=== PATIENT | female | born 1935 | race Caucasian/White ===

== ENCOUNTER → 2018-12-18 | Outpatient (CLI) | payer MEDICARE ==
[2018-12-18 18:00] LABS: CALCIUM LEVEL 8.5 MG/DL (8.8-10.2); CREATININE FOR GFR 1.1 MG/DL (0.55-1.30); GLOMERULAR FILTRATION RATE 50.7 (>32); POTASSIUM SERUM 4.5 MEQ/L (3.5-5.1)
== END ==
LOC: M SMT 14:54
PROVIDERS: ATTEND Nurse Practitioner Family
DX: N13.30 Unspecified hydronephrosis (principal)

== ENCOUNTER 2018-12-23 05:46 | Inpatient (IN) | payer MEDICARE ==
[~2018-12-23] VITALS: Ht 152.4 cm; Wt 68.2 kg
[2018-12-23] VITALS (31 sets, daily range): BP systolic 79–142; BP diastolic 38–94
[2018-12-23] MEDS ORDERED: CHLORHEXIDINE GLUCONATE 0.12 % 15ML UDC (PERIDEX ORAL RINSE) MT SCH (09:00)
[2018-12-23] MEDS ORDERED: NS 1,000 ML IV SCH (12:19)
[2018-12-23] MEDS ORDERED: NS 1,000 ML IV ONE ×2 (12:30→17:45)
[2018-12-23] MEDS ORDERED: SYNT100T PO (12:35)
[2018-12-23] MEDS ORDERED: METF750T PO (12:35)
[2018-12-23] MEDS ORDERED: VANCOMYCIN HCL 500 MG in D5W MINI-BAG PLUS 100 ML IV SCH (12:45)
[2018-12-23] MEDS ORDERED: NS IV SCH (12:45)
[2018-12-23] MEDS ORDERED: IMIPENEM IV SCH (12:45)
[2018-12-23] MEDS ORDERED: CILASTATIN IV SCH (12:45)
[2018-12-23] MEDS: ACETAMINOPHEN TAB 650MG DOSE (2X325MG) PO PRN (12:50)
[2018-12-23] MEDS ORDERED: ATOR1TAB21 PO (12:55)
[2018-12-23] MEDS ORDERED: TIOT18INH INH (12:55)
[2018-12-23] MEDS ORDERED: PARO10TA3 PO (12:55)
[2018-12-23] MEDS ORDERED: GLIP10TA18 PO (12:55)
[2018-12-23] MEDS ORDERED: BREO1INH INH (12:55)
[2018-12-23] MEDS ORDERED: PROAAER10 INH (12:55)
[2018-12-23] MEDS ORDERED: AMLO5TAB6 PO (12:55)
[2018-12-23] MEDS ORDERED: ASPI81TA85 PO (12:55)
[2018-12-23] MEDS ORDERED: DIPH25CA PO (12:55)
[2018-12-23] MEDS ORDERED: OXYC10TA12 PO (12:55)
[2018-12-23] MEDS ORDERED: PANT20TA2 PO (12:55)
[2018-12-23] MEDS ORDERED: FURO40TA2 PO (12:55)
[2018-12-23] MEDS ORDERED: METO1TAB32 PO (12:55)
[2018-12-23] MEDS ORDERED: TRAD5TAB PO (12:55)
[2018-12-23] MEDS ORDERED: MAG-400T7 PO (12:55)
[2018-12-23] MEDS ORDERED: LISI-538 PO (12:55)
[2018-12-23] MEDS ORDERED: POTA1TAB14 PO (12:59)
[2018-12-23] MEDS ORDERED: NON-325T5 PO (13:06)
[2018-12-23] MEDS ORDERED: GLUCAGON FOR INJ 1 MG VIAL (J1610) SC PRN (13:30)
[2018-12-23] MEDS ORDERED: DEXTROSE 50% 50 ML SYRINGE IV PRN (13:30)
[2018-12-23] MEDS ORDERED: GLUCOSE 4 GM CHEW TABLET PO PRN (13:30)
[2018-12-23 13:32] LABS: ABG BASE EXCESS -7.9 (-2.0-2.0); ABG HCO3 17.5 MEQ/L (22.0-26.0); ABG O2 SATURATION 97.5 % (95.0-99.0); ABG PARTIAL PRESSURE CO2 35.3 mmHg (35.0-45.0); ABG PARTIAL PRESSURE O2 94.7 mmHg (75.0-100.0); ABG TOTAL CO2 18.6 MEQ/L (23.0-31.0); ABG pH (ARTERIAL) 7.313 UNITS (7.350-7.450)
[2018-12-23 13:55] LABS: BASO % 0.2 % (0.0-1.0); HEMATOCRIT 28.2 % (36.0-47.0); HEMOGLOBIN 8.8 g/dl (12.0-15.5); LYMPH # 1.1 10^3/uL (1.5-4.5); LYMPH % 6.1 % (24.0-44.0); MEAN CORPUSCULAR HEMOGLOBIN 27.9 pg (27.0-33.0); MEAN CORPUSCULAR HGB CONC 31.2 g/dl (32.0-36.5); MEAN CORPUSCULAR VOLUME 89.5 fl (80.0-96.0); MONO # 1.8 10^3/uL (0.0-0.8); NEUTROPHILS # 14.7 10^3/uL (1.8-7.7); NEUTROPHILS % 82.8 % (36.0-66.0); PLATELET COUNT, AUTOMATED 205 10^3/uL (150-450); RED BLOOD COUNT 3.15 10^6/uL (4.00-5.40); WHITE BLOOD COUNT 17.7 10^3/uL (4.0-10.0)
[2018-12-23 13:58] LABS: ALBUMIN 2.3 GM/DL (3.2-5.2); BILIRUBIN,TOTAL 0.3 MG/DL (0.2-1.0); CALCIUM LEVEL 7.6 MG/DL (8.8-10.2); CREATININE FOR GFR 3.83 MG/DL (0.55-1.30); MAGNESIUM LEVEL 1.7 MG/DL (1.8-2.4); POTASSIUM SERUM 4.9 MEQ/L (3.5-5.1); THYROID STIMULATING HORMONE 0.47 uIU/ML (0.358-3.740); TOTAL PROTEIN 5.5 GM/DL (6.4-8.2); VANCOMYCIN LEVEL PEAK 13.3 UG/ML (18.0-40.0)
[2018-12-23 14:07] LABS: INR 1.28; PROTHROMBIN TIME 16.2 SECONDS (12.1-14.4)
--- NOTE | 2018-12-23 14:58 | PHACANCOPD ---
PHARMACY VANCOMYCIN DOSING Pt Demographics Demographics Patient Age:83 , Weight:67.000 , Gender: female Adjusted Body Weight Date: 12/23/18, Adjusted Body Weight: Kg Events Past 24 Hours Events Past 24 Hours: YES: Change in CrCl, Fever, Elevation in WBC Vancomycin Vancomycin indication: SEPSIS Vancomycin Load Y/N: Yes Load Dose Date Time Vancomycin Load Dose: 1000MG Date: 12/23 Time: 430AM AT [facility] Vancomycin Dose Date: 12/23/18. Current Vancomycin Dose: [750MG Q24H@21] Intermittent Dosing?: No Labs Labs Vital Signs Label Value Date Time Patient Temperature 104.3 degrees F 12/23/18 1130 Temperature Source Tympanic 12/23/18 1130 Patient Temperature 102.0 degrees F 12/23/18 1330 Temperature Source Temporal 12/23/18 1330 Respiratory Rate 20 bpm 12/23/18 1300 Blood Pressure Assessment 112/56 (74) 12/23/18 1330 Item Value Date Time White Blood Count 17.7 10^3/uL H 12/23/18 1342 Lactic Acid Level 2.2 MMOL/L *H 12/23/18 1342 Micro Microbiology 12/23/18 Blood Culture, Received Pending 12/23/18 Blood Culture, Received Pending Creatinine Clearance Date:12/23/18. Creatinine Clearance: . Assessment and Plan Maintaining Current Dose?: Yes Reason for dose change: No Dose Change Pharmacist Note Pharmacist Note Date: 12/23/18. Pharmacist note: Patient was transferred to here from [facility] today septic. She was admitted with a temperature of 104, WBC of 17.2, and a lactic acid level of 2.2. Her SCR was elevated at 3.83 upon admission, and her SCR on 12/18/18 was 1.1. She received 1 gram of Vancomycin at [facility] at 430am. A random level was obtained upon admission here and resulted at 13.3. No imaging or H&P has been done yet. She has blood cultures pending. She will be started on Vancomycin 750mg q24h starting tonight at 2100. We will continue to monitor and make adjustments. LETHA TOM PHARMACY Dec 23, 2018 14:58
[2018-12-23] MEDS: IPRATROPIUM 0.5MG/ALBUTEROL 2.5MG INH SOL UD 3ML (DUONEB)(J7620) NEB SCH ×3 (15:24→23:29)
[2018-12-23] MEDS: MEROPENEM INJ 500 MG in APPROPRIATE DILUENT 1 EA IV SCH (15:40)
--- NOTE | 2018-12-23 15:49 | HPEPDOC ---
General Date of Admission 12/23/2018 Primary Care Physician: A Attending Physician: KARI MARQUEZ MD Chief Complaint The patient is a 83-year-old female admitted with a reason for visit of Sepsis, Marco A, Renal Failure. Source: Patient, RN/MD, EMS notes reviewed, Old records Exam Limitations: No limitations Timing/Duration: Unsure History of Present Illness This is 83 years old white female transferred from [facility] emergency room.. Patient has a past medical history of COPD with pulmonary hypertension, diabetes mellitus, hypertension, hypothyroidism, history of C daily with atrophic left kidney. All of's, so patient had anorexia many episodes. Acute renal failure with a creatinine approximately 0.8, but slowly has been increasing to 3.0. In September 2018. She needed intermittent dialysis and eventually nephrostomy tube was placed in Patient also was admitted to ICU after being intubated, found concurrent pneumonia. She has been on a creatinine baseline of 0.7, till day of admission when she presented to [facility] with chief complaints of feeling weak and poor for the last few days. Patient has a nephrostomy tube and also does intermittent self cath for urinary output but has been slowly decreasing. Patient was transferred to [facility] with possible sepsis, possible nephrostomy tube dysfunction, etc. Home Medications Scheduled Acetaminophen (Acetaminophen) 325 Mg Tablet, 325 MG PO ONCE, (Reported) Amlodipine Besylate (Amlodipine Besylate) 5 Mg Tablet, 5 MG PO DAILY, (Reported) Aspirin (Aspir 81) 81 Mg Tablet.dr, 81 MG PO DAILY, (Reported) Atorvastatin Calcium (Atorvastatin Calcium) 20 Mg Tablet, 20 MG PO DAILY, (Reported) Fluticasone/Vilanterol (Breo Ellipta 100-25 Mcg INH) 1 Each Blst.w.dev, 1 PUFF INH DAILY, (Reported) Furosemide (Furosemide) 40 Mg Tablet, 40 MG PO DAILY, (Reported) Glipizide (Glipizide ER) 10 Mg Tab.er.24, 10 MG PO DAILY, (Reported) Levothyroxine Sodium (Synthroid) 100 Mcg Tablet, 100 MCG PO DAILY, (Reported) Linagliptin (Tradjenta) 5 Mg Tablet, 5 MG PO DAILY, (Reported) Lisinopril (Lisinopril) 20 Mg Tablet, 20 MG PO DAILY, (Reported) Magnesium Oxide (Magnesium Oxide) 400 Mg Tablet, 400 MG PO BID, (Reported) Metformin HCl (Metformin HCl ER) 750 Mg Tab.er.24h, 750 MG PO QPM, (Reported) TAKE WITH EVENING MEAL Metoprolol Succinate (Metoprolol Succinate) 25 Mg Tab.er.24h, 25 MG PO DAILY, (Reported) Pantoprazole Sodium (Pantoprazole Sodium) 20 Mg Tablet.dr, 20 MG PO BID, (Reported) Paroxetine HCl (Paroxetine) 10 Mg Tablet, 10 MG PO DAILY, (Reported) Potassium Chloride (Potassium Chloride) 20 Meq Tablet.er, 40 MEQ PO DAILY, (Reported) Tiotropium [place] Monohydrate (Spiriva) 18 Mcg Cap.w.dev, 1 INHALATION INH DAILY, (Reported) Scheduled PRN Albuterol Sulfate (Proair Hfa) 8.5 Gm Hfa.aer.ad, 2 PUFF INH Q4-6 PRN for DEISY RTNESS OF BREATH, (Reported) Diphenhydramine HCl (Diphenhydramine HCl) 25 Mg Capsule, 25 MG PO Q4H PRN for ALLERGY SYMPTOMS, (Reported) Oxycodone HCl (Oxycodone HCl) 10 Mg Tablet, 10 MG PO Q6H PRN for PAIN, (Reported) Allergies Coded Allergies: Penicillins (Unverified Allergy, Unknown, 12/23/18) budesonide (Unverified Adverse Reaction, Intermediate, 12/23/18) NOTES AT [facility] PATIENT HAD BAD SINUS REACTION AFTER USING formoterol (Unverified Adverse Reaction, Intermediate, 12/23/18) NOTES AT [facility]Y [facility] PATIENT HAD BAD SINUS REACTION AFTER USING Past Medical History Medical History As per [facility] Surgical History As per [facility] Social History * Smoker: Denies Alcohol: Denies Drugs: denies Review of Systems Constitutional: Reports: Malaise, Weakness; Denies: Chills, Fever, Night Sweats Eyes: Denies: Pain, Vision change ENT: Denies: Head Aches, Ear Pain, Dysphagia Skin: Denies: Rash, Lesions, Breakdown Pulmonary: Denies: Dyspnea, Cough Cardiovascular: Denies: Chest Pain, Palpitations, Orthopnea, Paroxysmal Noc. Dyspnea, Lt Headedness Gastrointestinal: Denies: Nausea, Vomiting, Abdominal Pain, Diarrhea Genitourinary: Denies: Dysuria, Frequency, Incontinence, Retention Hematologic: Denies: Bruising, Bleeding Excessively Musculoskeletal: Denies: Neck Pain, Back Pain, Joint Pain, Muscle Pain, Spasms Neurological: Denies: Weakness, Numbness, Change in speech, Confusion Psych: Reports: Mood Normal; Denies: Depression, Memory Issues Physical Examination General Exam: Positive: Alert, No Acute Distress Eye Exam: Positive: PERRLA, Conjunctiva & lids normal, EOMI; Negative: Sclera icteric ENT Exam: Positive: Atraumatic, Mucous membr. moist/pink, Pharynx Normal Neck Exam: Positive: Supple; Negative: JVD, thyromegaly Chest Exam: Positive: Clear to auscultation, Normal air movement Heart Exam: Positive: Rate Normal, Regular Rhythm, Normal S1, Normal S2; Negative: Murmurs, Rubs Telemetry: Positive: No significant arrhythmia Abdomen Exam: Positive: Normal bowel sounds, Soft; Negative: Tenderness, Hepatospenomegaly Extremity Exam: Positive: Normal pulses; Negative: Clubbing, Cyanosis, Edema Skin Exam: Positive: Nl turgor and temperature; Negative: Breakdown, Lesion Neuro Exam: Positive: Normal Gait, Normal Speech, Cranial Nerves 3-12 NL, Reflexes 2+ Psych Exam: Positive: Mental status NL, Mood NL, Oriented x 3 Vital Signs Vital Signs Date Time Temp Pulse Resp B/P (MAP) Pulse Ox O2 Delivery O2 Flow Rate FiO2 12/23/18 15:25 99 12/23/18 13:30 102.0 112/56 (74) 98 4.0 12/23/18 13:00 20 Laboratory Data Labs 24H Laboratory Tests 2 12/23/18 13:00: Anion Gap 13, Glomerular Filtration Rate 12.0L, Blood Urea Nitrogen 54H, Creatinine 3.83H, Sodium Level 129L, Potassium Level 4.9, Chloride Level 99, Carbon Dioxide Level 17L, Calcium Level 7.6L, Aspartate Amino Transf (AST/SGOT) 27, Alanine Aminotransferase (ALT/SGPT) 16, Alkaline Phosphatase 93, Total Bilirubin 0.3, Total Protein 5.5L, Albumin 2.3L, Magnesium Level 1.7L, Albumin/Globulin Ratio 0.72L, Thyroid Stimulating Hormone (TSH) 0.470, Vancomycin Level Peak 13.3L 12/23/18 13:09: Blood Gas Bicarbonate Standard 18.0L, Arterial Blood pH 7.313L, Arterial Blood Partial Pressure CO2 35.3, Arterial Blood Partial Pressure O2 94.7, Arterial Blood Total CO2 18.6L, Arterial Blood HCO3 17.5L, Arterial Blood Base Excess - 7.9L, Arterial Blood Oxygen Saturation 97.5 12/23/18 13:42: Immature Granulocyte % (Auto) 0.9, White Blood Count 17.7H, Red Blood Count 3.15L, Hemoglobin 8.8L, Hematocrit 28.2L, Mean Corpuscular Volume 89.5, Mean Corpuscular Hemoglobin 27.9, Mean Corpuscular Hemoglobin Concent 31.2L, Red Cell Distribution Width 14.9H, Platelet Count 205, Neutrophils (%) (Auto) 82.8H, Lymphocytes (%) (Auto) 6.1L, Monocytes (%) (Auto) 10.0H, Eosinophils (%) (Auto) 0.0, Basophils (%) (Auto) 0.2, Neutrophils # (Auto) 14.7H, Lymphocytes # (Auto) 1.1L, Monocytes # (Auto) 1.8H, Eosinophils # (Auto) 0.0, Basophils # (Auto) 0.0, Nucleated Red Blood Cells % (auto) 0.0, Prothrombin Time 16.2H, Prothromb Time International Ratio 1.28, Lactic Acid Level 2.2*H CBC/BMP Laboratory Tests 12/23/18 13:00 Calcium Level 7.6 L, Aspartate Amino Transf (AST/SGOT) 27, Alanine Aminotransferase (ALT/SGPT) 16, Alkaline Phosphatase 93, Total Bilirubin 0.3, Total Protein 5.5 L, Albumin 2.3 L 12/23/18 13:42 Red Blood Count 3.15 L, Mean Corpuscular Volume 89.5, Mean Corpuscular Hemog lobin 27.9, Mean Corpuscular Hemoglobin Concent 31.2 L, Red Cell Distribution Width 14.9 H, Neutrophils (%) (Auto) 82.8 H, Lymphocytes (%) (Auto) 6.1 L, Monocytes (%) (Auto) 10.0 H, Eosinophils (%) (Auto) 0.0, Basophils (%) (Auto) 0.2, Neutrophils # (Auto) 14.7 H, Lymphocytes # (Auto) 1.1 L, Monocytes # (Auto) 1.8 H, Eosinophils # (Auto) 0.0, Basophils # (Auto) 0.0 Microbiology Microbiology 12/23/18 Blood Culture, Received Pending 12/23/18 Blood Culture, Received Pending 12/23/18 Urine Culture, Received Pending Problems (1) Sepsis Status: Acute Response to Treatment: Uncompensated Discussed With: Sales Representative Cash Registers Problem Text: Admit to MICU Normal saline 1 L bolus Normal saline IVF at 100 mL per hour Tylenol when necessary Pancultures including blood and urine CBC, CMP, lactic acid and UA Chest x-ray CT abdomen and pelvis without contrast Start meropenem and vancomycin. Pharmacy to adjust dosage Discussed with Dr. antonio, will monitor nephrostomy tube output Also, will monitor. Dobson catheter output Strict intake and output Continue home meds except all antihypertensive meds Plan / VTE VTE Prophylaxis Ordered?: Yes KARI MARQUEZ MD Dec 23, 2018 15:49
[2018-12-23] MEDS ORDERED: MAG SULF 1GM/100ML (MAG RUN) 1 GM in APPROPRIATE DILUENT 1 EA IV ONE (16:00)
[2018-12-23] MEDS ORDERED: MEROPENEM INJ 500 MG in APPROPRIATE DILUENT 1 EA IV SCH (16:00)
[2018-12-23] MEDS ORDERED: IBUPROFEN 600 MG TAB PO PRN (16:00)
[2018-12-23] MEDS: MORPHINE 4 MG/ML 1ML VIAL/SYRINGE (J2270) IV PRN (17:42)
[2018-12-23] MEDS: HumaLOG INSULIN (NovoLOG) PER UNIT SC SCH (17:43)
--- NOTE | 2018-12-23 19:21 | REP ---
Portable chest, 06:46 p.m., single AP semi upright view: There are no comparisons. There are no focal infiltrates. There are no pleural effusions. There is mild diffuse interstitial coarsening. This could be chronic, acute or combination. The werner, mediastinum, skeletal structures are unremarkable except for orthopedic screws in the right humeral head. Impression: Interstitial coarsening, chronic, acute versus combination. Otherwise, negative portable chest. Electronically Signed by Tan Bruno MD 12/23/2018 07:13 P
[2018-12-23] MEDS ORDERED: NOREPINEPHRINE BITARTRATE 16 MG in D5W 484 ML IV SCH (20:45)
[2018-12-23] MEDS: ADVAIR HFA 230/21MCG INHALER INH SCH (21:00)
[2018-12-23] MEDS: VANCOMYCIN HCL 750 MG, VIAL MATE ADAPTER 1 EACH in D5W 250 ML IV SCH (21:07)
[2018-12-23] MEDS: PANTOPRAZOLE 20 MG TAB PO SCH (21:07)
[2018-12-23] MEDS: HEPARIN SOD (PORCINE) 5000 UNITS/ML VIAL SC SCH (21:07)
--- NOTE | 2018-12-23 23:32 | CR ---
DATE OF CONSULTATION: 12/23/2018 History was obtained from the chart and some history of obtained and the patient; however, she does have some mild dementia and is a poor historian. HISTORY OF PRESENT ILLNESS: The patient is an 83-year-old female with a past medical history of chronic obstructive pulmonary disease (COPD) with reported pulmonary hypertension, diabetes, hypertension, hypothyroidism, chronic kidney disease (CKD) with an atrophic left kidney had previously been admitted in September of 2018 where she was intubated in the ICU with pneumonia, as well as with acute renal failure requiring intermittent dialysis and a nephrostomy tube. The patient still has a nephrostomy tube, as well as does intermittent self-catheterization for urine output. She presented to an outside hospital with complaints of weakness and fatigue for the past few days. She has noted decreasing urine output. The patient also had subjective chills and had been complaining of pain in her right hip and leg. She denied any chest pain. She denied any increased shortness of breath, no coughing, no abdominal pain, no nausea or vomiting. On admission, the patient was noted to have some hypotension, was given IV fluids with improvement in her blood pressure. The patient was also febrile with leukocytosis and was started on broad-spectrum antibiotics. The patient was also found to have worsening of her chronic renal failure and nephrology was consulted for possible initiation of dialysis. HISTORY OF PRESENT ILLNESS: 1. Chronic obstructive pulmonary disease (COPD). 2. Anemia of chronic disease 3. Diabetes 4. Hypertension 5. Gastroesophageal reflux disease. 6. Congestive heart failure (CHF) 7. Hyperlipidemia 8. Dementia. 9. Chronic kidney disease (CKD) 10. Hypothyroidism 11. Osteoporosis 12. Status post nephrostomy tube for hydronephrosis 13. Pelvic fracture ALLERGIES: PENICILLIN, RED DYE, PEANUT OIL. 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 FAMILY HISTORY: Noncontributory. SOCIAL HISTORY: The patient is a nonsmoker. Denies alcohol use. She is . HOME MEDICATIONS: Amlodipine, aspirin, atorvastatin, Breo, furosemide, glipizide, Synthroid, linigliptin, lisinopril, magnesium oxide, metformin, metoprolol, pantoprazole paroxetine, spiriva, albuterol as needed. PHYSICAL EXAMINATION: T-max 103.1, T-current 98.2 pulse 73 and blood pressure 97/47, oxygen saturation 98% on 4 liters nasal cannula. General: The patient is an elderly female. He is lying in bed, is awake and alert, oriented x2, is answering questions appropriately. She is hard of hearing. HEENT: Normocephalic, atraumatic. Mucous membranes are moist. Pupils are reactive. Neck is supple. Trachea is midline. No palpable cervical adenopathy. No jugular venous distension (JVD). Regular rate and rhythm. Normal S1-S2. Unable to appreciate any murmurs. Pulmonary: Diminished breath sounds bilaterally. Few crackles at the bases. Abdomen is obese, soft, nontender, nondistended. Lower extremities: There is no significant pitting edema bilaterally. The patient has a right-sided nephrostomy tube. LABORATORY: White blood count (WBC) 17.7, hemoglobin 8.8, platelets 205. Chemistry: Sodium 129, potassium 4.9, chloride 99, bicarbonate 17 and gap 13, BUN 54, creatinine 3.83, glucose is 136, lactic acid 2.2. Repeat was 2.5, calcium 7.6, magnesium 1.7, 2.3, AST, ALT were normal, thyroid simulating hormone (TSH) 0.470. Coagulase: INR was 1.28. Arterial blood gas (ABG): pH 7.313, pCO2 of 35.3, pO2 of 94.7. Chest x-ray: After central line placement, showed some increased vascular markings and increased interstitial markings bilaterally. There is some atelectasis in the bases of her lungs and some small trace effusions bilaterally. ASSESSMENT/PLAN: Ms. Alvarado is an 83-year-old female with a past medical history of chronic obstructive pulmonary disease (COPD), diabetes, hypertension, hyperlipidemia, hypothyroidism, dementia, chronic kidney disease (CKD) with a history of an atrophic left kidney and a history of a right nephrostomy tube placed after hydronephrosis, history of intermittent dialysis in the past, who presented with increasing fatigue and weakness for the past few days. The patient was febrile. She was noted to have leukocytosis. Patient with sepsis likely secondary to a urinary source given her history of nephrostomy tube, as well as a history of apparently intermittent self catheterization. Her chest x-ray shows evidence of some pulmonary vascular congestion and atelectasis, but no focal opacities or infiltrates to suggest pneumonia. The patient was started on broad-spectrum antibiotics and given IV fluid hydration; however, she continues to have increasing lactic acidosis, as well as borderline blood pressures. She has received more than 2 liters of normal saline for adequate fluid resuscitation at this point. She is also noted to be in oliguric renal failure with minimal urine output from her Dobson and from her nephrostomy bag. Discussed with the patient and her son about central line placement for vasopressor support for her blood pressure. There are in agreement; therefore; a left internal jugular triple lumen was placed and will start Levophed if needed to maintain a MAP above 65. Given the evidence of some pulmonary vascular congestion on chest x-ray, as well a her need for supplemental oxygen, would decrease her IV fluid hydration. The patient has received adequate fluid hydration for her sepsis. Would continue with broad-spectrum antibiotics with vancomycin and meropenem and check a procalcitonin. Will followup with renal recommendations. The patient may require hemodialysis. She continues to be oliguric and azotemic. Will followup her repeat arterial blood gas (ABG) and renal function panel. For her chronic obstructive pulmonary disease (COPD), will continue with Advair and Spiriva and continue with nebulizers as needed. Continue with nasal cannula oxygen supplementation to maintain an oxygen saturation above 90% Deep vein thrombosis (DVT) prophylaxis with heparin. CODE STATUS. The patient is full code. Total critical care time spent not including any procedures approximately 1 hour and 30 minutes.
[2018-12-24] VITALS (34 sets, daily range): BP systolic 87–187; BP diastolic 43–81
[2018-12-24] MEDS: HumaLOG INSULIN (NovoLOG) PER UNIT SC SCH ×4 (01:24→18:08)
[2018-12-24] MEDS: ACETAMINOPHEN TAB 650MG DOSE (2X325MG) PO PRN ×4 (02:29→21:13)
[2018-12-24] MEDS: IPRATROPIUM 0.5MG/ALBUTEROL 2.5MG INH SOL UD 3ML (DUONEB)(J7620) NEB SCH ×5 (03:58→18:21)
[2018-12-24] MEDS: MEROPENEM INJ 500 MG in APPROPRIATE DILUENT 1 EA IV SCH ×2 (04:33→16:01)
[2018-12-24 05:22] LABS: ABG BASE EXCESS -6.7 (-2.0-2.0); ABG HCO3 18.1 MEQ/L (22.0-26.0); ABG O2 SATURATION 93.4 % (95.0-99.0); ABG PARTIAL PRESSURE CO2 33.3 mmHg (35.0-45.0); ABG STANDARD HCO3 18.9 MEQ/L (22.0-26.0); ABG TOTAL CO2 19.2 MEQ/L (23.0-31.0); ABG pH (ARTERIAL) 7.354 UNITS (7.350-7.450)
[2018-12-24] MEDS: MORPHINE 4 MG/ML 1ML VIAL/SYRINGE (J2270) IV PRN ×4 (05:22→19:50)
[2018-12-24] MEDS: LEVOTHYROXINE 100MCG TABLET (0.1MG) PO SCH (05:22)
[2018-12-24 05:39] LABS: BASO % 0.2 % (0.0-1.0); EOS % 0.2 % (0.0-3.0); HEMATOCRIT 25.3 % (36.0-47.0); HEMOGLOBIN 8.2 g/dl (12.0-15.5); IONIZED CALCIUM 4.2 MG/DL (4.5-5.3); LYMPH % 6.3 % (24.0-44.0); MEAN CORPUSCULAR HGB CONC 32.4 g/dl (32.0-36.5); MEAN CORPUSCULAR VOLUME 89.4 fl (80.0-96.0); MONO # 1.5 10^3/uL (0.0-0.8); MONO % 9.5 % (0.0-5.0); NEUTROPHILS # 13.2 10^3/uL (1.8-7.7); NEUTROPHILS % 82.1 % (36.0-66.0); PLATELET COUNT, AUTOMATED 195 10^3/uL (150-450); RED BLOOD COUNT 2.83 10^6/uL (4.00-5.40); WHITE BLOOD COUNT 16.1 10^3/uL (4.0-10.0)
[2018-12-24 06:08] LABS: ALBUMIN 2.1 GM/DL (3.2-5.2); BILIRUBIN,TOTAL 0.3 MG/DL (0.2-1.0); CALCIUM LEVEL 7.2 MG/DL (8.8-10.2); CREATININE FOR GFR 3.79 MG/DL (0.55-1.30); GLOMERULAR FILTRATION RATE 12.2 (>32); PHOSPHORUS LEVEL 4.4 MG/DL (2.5-4.9); POTASSIUM SERUM 4.7 MEQ/L (3.5-5.1); TOTAL PROTEIN 4.6 GM/DL (6.4-8.2)
--- NOTE | 2018-12-24 06:40 | RO ---
DATE OF PROCEDURE: 12/23/2018 INDICATION: Vasopressor and vascular access. PREPROCEDURE DIAGNOSIS: Septic shock. POSTPROCEDURE DIAGNOSIS: Septic shock. ATTENDING PHYSICIAN: Anu Koehler MD CONSENT: Consent was obtained from the patient and her son prior to the procedure. Indication, risks and benefits were explained at length. PROCEDURE SUMMARY: A central line insertion practices form was completed by independent observer. Starting with the first hand wash prior to starting sterile technique. A time out was performed. My hands were washed immediately prior to the procedure. Full sterile technique was maintained throughout the procedure including surgical cap, mask with protective eye wear, full gown and sterile gloves throughout. The patient was placed in Trendelenburg position. The left neck and chest region was prepped using chlorhexidine scrub and draped in a sterile fashion using a full drape and a sterile probe cover employed. The left internal jugular vein was identified using ultrasound. Anesthesia was achieved over the vein using 1% lidocaine. Using real time out of plane guidance, the introducer needle was inserted into the left internal jugular vein under direct ultrasound visualization. Venous blood was drawn. The syringe was removed and a Guidewire was advanced into the introducer needle. The introducer needle was removed over the Guidewire. A small incision was made at the skin surface with a scalpel and a dilator was exchanged over the guidewire. After appropriate dilation was obtained, the dilator was exchanged over the wire for a triple lumen central venous catheter. The wire was removed and the catheter was sutured in place at 20 cm. A sterile chlorhexidine impregnated dressing was placed over the catheter at the insertion site. The patient tolerated the procedure without any hemodynamic compromise. At tune if procedure completion, all ports aspirated and flushed probably. Postprocedure chest x-ray showed the triple lumen crossing over midline with its tip just into the superior vena cava (SVC). No pneumothorax was noted. [facility]
--- NOTE | 2018-12-24 07:26 | REP ---
Portable chest, 08:00 p.m., single AP sitting view: Comparison is from 06:46 earlier this same date. Studies performed for line placement. There is a left IJ central venous catheter. 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 This could be confirmed by CT with IV contrast. There is no pneumothorax or pleural fluid collection. The lung madrigal are unchanged. Cardiac size is normal. Electronically Signed by Tan Bruno MD 12/24/2018 07:18 A
--- NOTE | 2018-12-24 07:37 | REP ---
Portable chest, 06:49 a.m., single AP semi upright view: Comparisons are 12/23/2018. There is diffuse mild interstitial coarsening, unchanged. There are no pleural effusions. Cardiac size is normal, unchanged. 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 Orthopedic screws in the right humeral head are unchanged. Impression: No interval change. Electronically Signed by Tan Bruno MD 12/24/2018 07:29 A
[2018-12-24 07:53] LABS: VANCOMYCIN RANDOM 18.4 UG/ML
--- NOTE | 2018-12-24 08:01 | CR ---
DATE OF CONSULTATION: 12/23/2018 REQUESTING PHYSICIAN: Dr. Efrain Mendoza REASON FOR CONSULTATION: Management of acute renal failure. Shock and metabolic acidosis. CHIEF COMPLAINT: The patient was transferred from an outside hospital because of acute renal failure and sepsis. HISTORY OF PRESENT ILLNESS: Note: Most of the history was obtained from the patient's chart and from the medical team. The patient herself is not able to provide any reliable history. 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 The patient has a past medical history of diabetes mellitus type 2, hypertension, chronic pulmonary obstructive disease (COPD). In September 2018 the patient had sepsis, acute renal failure. She was admitted to ICU and was intubated. She developed pneumonia at that time. She briefly required hemodialysis during that hospitalization. She got a percutaneous nephrostomy on the right side and after that her renal function recovered. As per the records, her baseline creatinine is around 0.8. The patient presented to the emergency room at an outside hospital today where she was found to have high grade fever. She was obtunded. She had minimal urine output from the nephrostomy and even after Dobson catheter placement. She had elevated white cell counts and elevated creatinine. She was transferred to [facility] for higher level of care. The patient was seen and examined by myself today in the afternoon. She required emergent attention. She was unable to provide any reliable history. She was obtunded. She was following very few commands. She was otherwise opening her eyes. Clinically she looked very dehydrated with a very dry tongue. Stat normal saline bolus of 1 liter was ordered by myself. Stat labs including CMP, cultures, CBC, lactic acid, was ordered. First dose of IV antibiotics were also ordered. The patient was able to maintain her blood pressure without any pressors when I saw the patient in the intensive care unit (ICU). PAST MEDICAL HISTORY: 1. Renal failure requiring dialysis in September 2018. 2. History of solitary functioning right kidney with a right percutaneous nephrostomy. 3. History of hypertension. 4. Diabetes mellitus type 2. 5. Hypothyroidism. 6. Chronic pulmonary obstructive disease (COPD). 7. Possible pulmonary hypertension in the past. PAST SURGICAL HISTORY: 1. Right sided percutaneous nephrostomy. No other recent surgical history is known. FAMILY HISTORY: I was unable to obtain family history. SOCIAL HISTORY: I was unable to obtain the social history. As per the documentation, there is no history of smoking or alcohol abuse or drug abuse. REVIEW OF SYSTEMS: The patient was unable to provide the full review of systems. However, at this time she is obtunded. She was in mild respiratory distress. She reported that her belly hurts. PHYSICAL EXAMINATION: General: The patient is obtunded, clinically dehydrated. She is laying in bed. Vital signs: Temperature on arrival was 104.3 degrees Fahrenheit, blood pressure 111/53, pulse 97, respiratory rate 20, [id number]% on nasal cannula at 4 liters. Head/Neck Exam: The patient is normocephalic atraumatic. Mucous membranes are very dry. Neck is supple. There is no jugular venous distention (JVD). Cardiovascular: S1, S2, tachycardia. Extremities: No edema of the bilateral lower extremities. Respiratory: Mildly decreased breath sounds at the bases. No active rales or rhonchi. Abdomen: Soft, midline surgical scar is noted. She has a periumbilical hernia in the midline. No significant organomegaly was noted. She has a right sided percutaneous nephrostomy. Urine in the bag is clear. Genitourinary: The patient has an indwelling Dobson catheter, minimal amount of urine in the Dobson catheter was noted. Musculoskeletal: No clubbing or cyanosis. 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 Skin: No rashes or ulcers. Lymphatics: No significant cervical, axillary, or inguinal lymphadenopathy. LAB REVIEW: CBC shows WBC 17.7, hemoglobin 8.8, platelets 205, INR 1.28. Arterial blood gas (ABG) showed pH of 7.31, PCO2 35, PO2 94, bicarbonate 17.5, Oxygen sat 97.5%. Basic metabolic panel (BMP) shows sodium 129, potassium 4.9, chloride 99, bicarbonate 17, BUN 54, creatinine 3.8, lactic acid 2.2, calcium 7.6, magnesium 1.7, albumin 2.3, vancomycin level is 13.3. MICROBIOLOGY: Blood culture and urine culture are pending. IMAGING: Chest x-ray was done on arrival which showed interstitial coarsening which was acute versus chronic. HOME MEDICATIONS: - Tylenol as needed - albuterol as needed - amlodipine 5 mg daily - aspirin 81 mg daily - Lipitor 20 mg daily - Breo Ellipta one puff daily - Lasix 40 mg by mouth daily - Glipizide 10 mg by mouth daily - levothyroxine 100 mcg by mouth daily - Tradjenta 5 mg by mouth daily - lisinopril 20 mg by mouth daily - magnesium oxide 400 mg by mouth twice daily - metformin 750 mg by mouth daily in the evening - metoprolol 25 mg by mouth daily - Oxycodone 10 mg every 6 hours as needed pain - Protonix 20 mg by mouth twice daily - paroxetine 10 mg daily - potassium chloride 40 mEq by mouth daily - Spiriva inhalation daily CURRENT INPATIENT MEDICATIONS: The patient's inpatient medications were all reviewed by me. She has been started on meropenem 500 mg IV every 12 hours. She was given normal saline boluses. She was also given a dose of vancomycin. - aspirin 81 mg daily - Lipitor 20 mg by mouth daily - started on ibuprofen which I am stopping right now - Protonix 20 mg by mouth twice a day - Advair two puffs twice a day - Spiriva inhalation daily ASSESSMENT: The patient is an 83-year-old female with acute renal failure, severe sepsis, metabolic acidosis, with history of diabetes mellitus type 2, hypertension, chronic pulmonary obstructive disease and hypothyroidism in the past. PLAN: 1. Severe sepsis. The patient came in with temperatures of more than 104 degrees Fahrenheit. She has leukocytosis, tachycardia, lactic acidosis. She was given broad-spectrum antibiotics, cultures have been sent. Chest x-ray did not show any evidence of infection. CAT scan of the abdomen was already done in the emergency room before the patient was transferred over here. I have requested the critical care team, Dr. Anu Koehler to come onboard as well. The patient will need central line placement, CVP monitoring, and possible initiation of pressors as needed. 30 mL/kg of intravenous (IV) fluid initial resuscitation has already been given. 2. Acute renal failure. Acute renal failure is multifactorial most likely secondary to a combination of severe sepsis, use of analisa inhibitors, diuretics and metformin at home. Avoid further use of angiotensin converting enzymes (ANALISA) or nonsteroidal antiinflammatories (NSAIDs) at this point. Continue to monitor for renal recovery. If the patient's renal function does not start improving over the next 24 hours, then she will need initiation of hemodialysis. 3. Metabolic acidosis. The patient has renal failure, and lactic acidosis If acidosis does not improve by tomorrow, then the patient will need initiation of hemodialysis. 4. Diabetes mellitus type 2. Okay to use insulin sliding scale. At this point avoid the use of metformin because of renal failure and lactic acidosis. 5. Anemia. Hemoglobin is 8.8 which is low. Baseline hemoglobin is not known. Continue to monitor CBC, transfuse as needed for hemoglobin less than 8. 6. History of chronic pulmonary obstructive disease (COPD). Okay to continue BREO Ellipta and Spiriva at this point as per home dosage. 7. Hypothyroidism. Continue home dose of levothyroxine 100 mcg by mouth daily. Thank you for involving me in the care of this patient. I shall be happy to follow the patient along with you tomorrow morning. Total critical care time spent in the management of this patient this afternoon in the intensive care unit (ICU) was 50 minutes. That does not include any procedures.
[2018-12-24] MEDS: TIOTROPIUM INHALER/CAPSULE (SPIRIVA) INH SCH (08:10)
--- NOTE | 2018-12-24 08:10 | PHACANCOPD ---
PHARMACY VANCOMYCIN DOSING Pt Demographics Demographics Patient Age:83 , Weight:67.800 , Gender: female Adjusted Body Weight Date: 12/23/18, Adjusted Body Weight: Kg Vancomycin Vancomycin indication: SEPSIS Vancomycin Load Y/N: Yes Load Dose Date Time Vancomycin Load Dose: 1000MG Date: 12/23 Time: 430AM AT [facility] Vancomycin Dose Date: 12/23/18. Current Vancomycin Dose: [750MG Q24H@21] Intermittent Dosing?: No Labs Micro Microbiology 12/23/18 Blood Culture, Received Pending 12/23/18 Blood Culture, Received Pending 12/23/18 Urine Culture, Received Pending Creatinine Clearance Date:12/23/18. Creatinine Clearance: . Assessment and Plan Maintaining Current Dose?: Yes Reason for dose change: No Dose Change Pharmacist Note Pharmacist Note 12/24/18: Day #2 empiric vancomycin therapy. A random level was drawn this morning which resulted at 18.4mcg/ml, to ensure that the patient was remaining within therapeutic levels given poor renal function. We will maintain the patient on her current regimen of 750mg IV Q24H @2100, and schedule a follow-up trough level when appropriate. Date: 12/23/18. Pharmacist note: Patient was transferred to here from [facility] today septic. She was admitted with a temperature of 104, WBC of 17.2, and a lactic acid level of 2.2. Her SCR was elevated at 3.83 upon admission, and her SCR on 12/18/18 was 1.1. She received 1 gram of Vancomycin at [facility] at 430am. A random level was obtained upon admission here and resulted at 13.3. No imaging or H&P has been done yet. She has blood cultures pending. She will be started on Vancomycin 750mg q24h starting tonight at 2100. We will continue to monitor and make adjustments. CROW DIAS [facility]ARMAC[facility] Dec 24, 2018 08:10
[2018-12-24] MEDS: PANTOPRAZOLE 20 MG TAB PO SCH ×2 (08:51→21:00)
[2018-12-24] MEDS: ATORVASTATIN 20 MG TAB PO SCH (08:51)
[2018-12-24] MEDS: ASPIRIN 81 MG ENTERIC TAB PO SCH (08:51)
[2018-12-24] MEDS: HEPARIN SOD (PORCINE) 5000 UNITS/ML VIAL SC SCH ×2 (08:51→21:24)
[2018-12-24] MEDS: ADVAIR HFA 230/21MCG INHALER INH SCH ×2 (09:00→21:00)
--- NOTE | 2018-12-24 11:23 | IPNPDOC ---
Subjective Date Seen The patient was seen on 12/24/18. Subjective Chief Complaint/HPI The patient lying down in bed comfortable in no acute cardiac or respiratory distress General: Reports: Normal Appetite; Denies: Chills, Night Sweats, Fatigue, Malaise Constitutional: Denies: Chills, Fever, Night Sweats Eyes: Denies: Pain, Vision change ENT: Denies: Head Aches, Ear Pain, Dysphagia Skin: Denies: Rash, Lesions, Breakdown Pulmonary: Denies: Dyspnea, Cough Cardiovascular: Denies: Chest Pain, Palpitations, Orthopnea, Paroxysmal Noc. Dyspnea, Lt Headedness Gastrointestinal: Denies: Nausea, Vomiting, Abdominal Pain, Diarrhea, Constipation Genitourinary: Denies: Dysuria, Frequency, Incontinence, Retention Hematologic: Denies: Bruising, Bleeding Excessively Musculoskeletal: Denies: Neck Pain, Back Pain, Joint Pain, Muscle Pain, Spasms Neurological: Denies: Weakness, Numbness, Change in speech, Confusion Psych: Reports: Mood Normal; Denies: Depression, Memory Issues Objective Physical Examination General Exam: Positive: Alert, No Acute Distress Eye Exam: Positive: PERRLA, Conjunctiva & lids normal, EOMI; Negative: Sclera icteric ENT Exam: Positive: Atraumatic, Mucous membr. moist/pink, Pharynx Normal Neck Exam: Positive: Supple; Negative: JVD, thyromegaly Chest Exam: Positive: Clear to auscultation, Normal air movement Heart Exam: Positive: Rate Normal, Regular Rhythm, Normal S1, Normal S2; Negative: Murmurs, Rubs Telemetry: Positive: No significant arrhythmia Abdomen Exam: Positive: Normal bowel sounds, Soft; Negative: Tenderness, Hepatospenomegaly Extremity Exam: Positive: Normal pulses; Negative: Clubbing, Cyanosis, Edema Skin Exam: Positive: Nl turgor and temperature; Negative: Breakdown, Lesion Neuro Exam: Positive: Normal Gait, Normal Speech, Cranial Nerves 3-12 NL, Reflexes 2+ Psych Exam: Positive: Mental status NL, Mood NL, Oriented x 3 Assessment /Plan Problems (1) Sepsis Status: Acute Response to Treatment: Uncompensated Discussed With: In Home Nanny Problem Text: Patient received 2 L of normal saline boluses followed by normal saline at 150 mL/h which was later on decreased to 50 mL per hour. Considering patient's history for congestive heart failure after enough hydration. Patient's blood pressure was found to be hypotensive last night and she was started on vasopressors by Dr. Koehler. Patient is off vasopressor right now. Vital signs are stable. IV fluid normal saline at 50 mL per hour. Continue meropenem and vancomycin, which patient seems to be responding very well Patient is a lactic acid is down to normal limit, now 1.6 She had a CAT scan done at that out outside facility, which was essentially within normal limits at Will order a repeat CT abdomen without contrast secondary to tenderness at the abdomen Urine and blood cultures are still pending WBC count is slightly low today. We will repeat laboratory work in a.m. Continue cardiac monitoring. Critical care monitoring Nephrology and critical care consultation. Appreciate Further, as per Dr. Palomino and Dr. Koehler recommended. Recommendations Plan/VTE VTE Prophylaxis Ordered?: Yes VS, I&O, 24H, Fishbone Vital Signs/I&O Vital Signs Date Time Temp Pulse Resp B/P (MAP) Pulse Ox O2 Delivery O2 Flow Rate FiO2 12/24/18 10:00 18 12/24/18 08:07 98.2 94 122/54 (76) 90 12/24/18 02:30 0.5 I&O- Last 24 Hours up to 6 AM 12/24/18 06:00 Intake Total 3272 ml Output Total 430 ml Balance 2842 ml Laboratory Data 24H LABS Laboratory Tests 2 12/23/18 13:00: Anion Gap 13, Glomerular Filtration Rate 12.0L, Blood Urea Nitrogen 54H, Creatinine 3.83H, Sodium Level 129L, Potassium Level 4.9, Chloride Level 99, Carbon Dioxide Level 17L, Calcium Level 7.6L, Aspartate Amino Transf (AST/SGOT) 27, Alanine Aminotransferase (ALT/SGPT) 16, Alkaline Phosphatase 93, Total Bilirubin 0.3, Total Protein 5.5L, Albumin 2.3L, Magnesium Level 1.7L, Albumin/Globulin Ratio 0.72L, Thyroid Stimulating Hormone (TSH) 0.470, Vancomycin Level Peak 13.3L 12/23/18 13:09: Blood Gas Bicarbonate Standard 18.0L, Arterial Blood pH 7.313L, Arterial Blood Partial Pressure CO2 35.3, Arterial Blood Partial Pressure O2 94.7, Arterial Blood Total CO2 18.6L, Arterial Blood HCO3 17.5L, Arterial Blood Base Excess - 7.9L, Arterial Blood Oxygen Saturation 97.5 12/23/18 13:42: Immature Granulocyte % (Auto) 0.9, White Blood Count 17.7H, Red Blood Count 3.15L, Hemoglobin 8.8L, Hematocrit 28.2L, Mean Corpuscular Volume 89.5, Mean Corpuscular Hemoglobin 27.9, Mean Corpuscular Hemoglobin Concent 31.2L, Red Cell Distribution Width 14.9H, Platelet Count 205, Neutrophils (%) (Auto) 82.8H, Lymphocytes (%) (Auto) 6.1L, Monocytes (%) (Auto) 10.0H, Eosinophils (%) (Auto) 0.0, Basophils (%) (Auto) 0.2, Neutrophils # (Auto) 14.7H, Lymphocytes # (Auto) 1.1L, Monocytes # (Auto) 1.8H, Eosinophils # (Auto) 0.0, Basophils # (Auto) 0.0, Nucleated Red Blood Cells % (auto) 0.0, Prothrombin Time 16.2H, Prothromb Time International Ratio 1.28, Lactic Acid Level 2.2*H 12/23/18 17:35: Bedside Glucose (Misc Panel) 149H 12/23/18 18:11: Lactic Acid Followup at 4 Hours 2.5*H 12/23/18 22:52: Lactic Acid Level 1.6 12/24/18 01:12: Bedside Glucose (Misc Panel) 135H 12/24/18 05:15: Immature Granulocyte % (Auto) 1.7, White Blood Count 16.1H, Red Blood Count 2.83L, Hemoglobin 8.2L, Hematocrit 25.3L, Mean Corpuscular Volume 89.4, Mean Corpuscular Hemoglobin 29.0, Mean Corpuscular Hemoglobin Concent 32.4, Red Cell Distribution Width 14.9H, Platelet Count 195, Neutrophils (%) (Auto) 82.1H, L ymphocytes (%) (Auto) 6.3L, Monocytes (%) (Auto) 9.5H, Eosinophils (%) (Auto) 0.2, Basophils (%) (Auto) 0.2, Neutrophils # (Auto) 13.2H, Lymphocytes # (Auto) 1.0L, Monocytes # (Auto) 1.5H, Eosinophils # (Auto) 0.0, Basophils # (Auto) 0.0, Nucleated Red Blood Cells % (auto) 0.0, Blood Gas Bicarbonate Standard 18.9L, Arterial Blood pH 7.354, Arterial Blood Partial Pressure CO2 33.3L, Arterial Blood Partial Pressure O2 63.0L, Arterial Blood Total CO2 19.2L, Arterial Blood HCO3 18.1L, Arterial Blood Base Excess -6.7L, Arterial Blood Oxygen Saturation 93.4L, Anion Gap 11, Glomerular Filtration Rate 12.2L, Blood Urea Nitrogen 52H, Creatinine 3.79H, Sodium Level 128L, Potassium Level 4.7, Chloride Level 100, Carbon Dioxide Level 17L, Calcium Level 7.2L, Phosphorus Level 4.4, Aspartate Amino Transf (AST/SGOT) 18, Alanine Aminotransferase (ALT/SGPT) 12, Alkaline Phosphatase 87, Total Bilirubin 0.3, Total Protein 4.6L, Albumin 2.1L, Whole Blood Ionized Calcium 4.2L, Magnesium Level 2.0, Albumin/Globulin Ratio 0.84L, Random Vancomycin Level 18.4 12/24/18 06:28: Bedside Glucose (Misc Panel) 150H CBC/BMP Laboratory Tests 12/23/18 13:00 Calcium Level 7.6 L, Aspartate Amino Transf (AST/SGOT) 27, Alanine Aminotransferase (ALT/SGPT) 16, Alkaline Phosphatase 93, Total Bilirubin 0.3, Total Protein 5.5 L, Albumin 2.3 L 12/23/18 13:42 Red Blood Count 3.15 L, Mean Corpuscular Volume 89.5, Mean Corpuscular Hemoglobin 27.9, Mean Corpuscular Hemoglobin Concent 31.2 L, Red Cell Distribution Width 14.9 H, Neutrophils (%) (Auto) 82.8 H, Lymphocytes (%) (Auto) 6.1 L, Monocytes (%) (Auto) 10.0 H, Eosinophils (%) (Auto) 0.0, Basophils (%) (Auto) 0.2, Neutrophils # (Auto) 14.7 H, Lymphocytes # (Auto) 1.1 L, Monocytes # (Auto) 1.8 H, Eosinophils # (Auto) 0.0, Basophils # (Auto) 0.0 12/24/18 05:15 Calcium Level 7.2 L, Aspartate Amino Transf (AST/SGOT) 18, Alanine Aminotransferase (ALT/SGPT) 12, Alkaline Phosphatase 87, Total Bilirubin 0.3, Total Protein 4.6 L, Albumin 2.1 L, Red Blood Count 2.83 L, Mean Corpuscular Volume 89.4, Mean Corpuscular Hemoglobin 29.0, Mean Corpuscular Hemoglobin Concent 32.4, Red Cell Distribution Width 14.9 H, Neutrophils (%) (Auto) 82.1 H, Lymphocytes (%) (Auto) 6.3 L, Monocytes (%) (Auto) 9.5 H, Eosinophils (%) (Auto) 0.2, Basophils (%) (Auto) 0.2, Neutrophils # (Auto) 13.2 H, Lymphocytes # (Auto) 1.0 L, Monocytes # (Auto) 1.5 H, Eosinophils # (Auto) 0.0, Basophils # (Auto) 0.0, Phosphorus Level 4.4 Microbiology Microbiology 12/23/18 Blood Culture, Received Pending 12/23/18 Blood Culture, Received Pending 12/23/18 Urine Culture, Received Pending KARI MARQUEZ MD Dec 24, 2018 11:23
--- NOTE | 2018-12-24 11:50 | CCN ---
DATE: 12/24/2018 The patient was seen and examined this morning during bedside rounds. Overnight the patient was on Levophed for blood pressure support. Was able to be weaned off of Levophed early this morning and her blood pressures have remained stable. She is saturating well on room air oxygen. She does continue to complain of some abdominal pain as well as some pain in her right hip and leg from her arthritis. She has not had any further fevers overnight. No nausea or vomiting. PHYSICAL EXAMINATION: Temperature 97.8, pulse 88, respirations 22, blood pressure 97/46, O2 sat 93% on room air. GENERAL: The patient is an elderly female, is lying in bed awake, alert, is [id number] but answering questions appropriately. HEENT: She is normocephalic, atraumatic. Mucous membranes are moist. Pupils are reactive. NECK: Supple. Trachea is midline. No palpable cervical adenopathy. CARDIOVASCULAR: Regular rate and rhythm. Normal S1,S2. Unable to appreciate murmurs. PULMONARY: Diminished breath sounds bilaterally with some crackles at the bases. ABDOMEN: Obese, soft. There is some mild tenderness diffusely. There is a right-sided nephrostomy tube in place. LOWER EXTREMITIES: There is no significant pitting edema bilaterally. LABS: WBC 15.1, hemoglobin 8.2, platelets 195. Chemistry: Sodium was 128, potassium 4.7, chloride 100, bicarb 17, BUN 52, creatinine 3.79, glucose 161, lactic acid trended down to 1.6. ABG: pH 7.354, pCO2 of 33.3, pO2 of 63. ASSESSMENT/PLAN: Ms. Alvarado is an 83-year female with a past medical history of chronic obstructive pulmonary disease (COPD), diabetes, hypertension, hyperlipidemia, hypothyroidism, dementia, chronic kidney disease (CKD), history of atrophic left kidney and a history of a right nephrostomy tube for hydronephrosis with a history of intermittent dialysis in the past who presented with increasing fatigue and weakness for the past few days. The patient was febrile with a leukocytosis. She has sepsis likely secondary to urinary source given her history of nephrostomy tube as well as complaint currently of some abdominal pain. Her chest x-ray shows some pulmonary vascular congestion and some atelectasis at the bases with some small pleural effusions. The patient was given IV fluid hydration with more than 2 liters of normal saline boluses for adequate fluid resuscitation. However, she continued to have hypotension and increasing lactic acidosis. Therefore had a central line placed and was started on Vasopressor support. With the Levophed her lactic acid had improved and she was able to weaned off of it this morning. Her IV fluid hydration was held yesterday. This morning she is saturating on the lower side on room air. However, does not need oxygen as she does not appear to be in respiratory distress. She does have some small effusion on her last chest x-ray however, she is having some improvement in her urine output and her creatinine has remained stable. Therefore, I would restart with IV fluid hydration with some bicarbonate given her mild acidosis in the setting of her chronic renal failure. Would continue with fluids and bicarb as per renal recommendations. Continue with broad-spectrum antibiotics with vancomycin and meropenem and followup cultures. Followup procalcitonin results. Would get a CT abdomen, pelvis given her abdominal complaints and to evaluate for possible infectious source as well. Would monitor her blood pressure and maintain a MAP above 65. Can restart Levophed if needed if she does not respond to a normal saline bolus of 500 mL. For her chronic obstructive pulmonary disease (COPD): Continue with Advair and Spiriva and continue with nebulizers as needed. Would monitor her oxygenation and start nasal cannula supplementation as needed to maintain O2 sat above 90% Deep venous thrombosis (DVT) prophylaxis with heparin. CODE STATUS: FULL CODE. Total critical care time spent not including any procedures approximately 30 minutes.
[2018-12-24] MEDS ORDERED: SODIUM BICARBONATE 75 MEQ in NS 0.45% 1,000 ML IV SCH (12:00)
--- NOTE | 2018-12-24 12:06 | REP ---
CT of the abdomen pelvis without IV or bowel contrast for abdominal pain: There are no comparisons. There are small bilateral pleural effusions in the visualized lung madrigal. The hepatic margin is mildly nodular compatible with cirrhosis. There is a small gallbladder calculus. The gallbladder is otherwise unremarkable. There is no biliary duct dilatation. The pancreas is unremarkable. The spleen is normal size. There are splenic calcified granulomas. The adrenals are unremarkable. There is a right percutaneous nephrostomy. There is no right perinephric fluid collection or stranding. The left kidney is markedly atrophic. There are is a distal abdominal aortic aneurysm measuring 4.0 cm AP by 3.9 cm transversely. There is calcified atheroma throughout the abdominal aorta. There is no periaortic hematoma. There is no bowel distension or obstruction. There is no ascites. No adenopathy. No pneumoperitoneum. Pelvis: The appendix is not identified. There is no pericecal inflammation or abscess. There are diverticula in the cecum, descending colon and sigmoid colon without evidence of diverticulitis. There is a bladder catheter. The bladder is nondistended and cannot be further evaluated. The uterus and adnexa are unremarkable. There is no ascites or adenopathy. There are fractures of the right ischium and pubic symphysis on the right. There is advanced bilateral hip osteoarthritis. Impression: Abdominal aortic aneurysm. No periaortic hematoma. Diverticulosis without diverticulitis. Right percutaneous nephrostomy. Marked left renal atrophy. Fractures of the right ischium and right pubic symphysis. Advanced bilateral hip osteoarthritis. Electronically Signed by Tan Bruno MD 12/24/2018 11:58 A
[2018-12-24 12:09] LABS: INFLUENZA A AMPLIFICATION NEGATIVE (NEGATIVE); INFLUENZA B AMPLIFICATION NEGATIVE (NEGATIVE)
[2018-12-24 12:47] LABS: URIC ACID 8.7 MG/DL (2.6-6.0)
--- NOTE | 2018-12-24 14:09 | IPN ---
DATE: 12/24/2018 SUBJECTIVE: The patient was seen and examined at the bedside in the intensive care unit (ICU) this morning. She is a little bit more awake and alert today. The patient starting making urine through the nephrostomy tube. She got more IV fluid hydration overnight. The critical care team was involved overnight and I appreciate their help. She got the left internal jugular (IJ) triple lumen catheter placed. She briefly required addition of Levophed for low blood pressures. However, Levophed was weaned off this morning. Cultures are all negative so far. Temperatures are getting better. She is no longer requiring cooling blankets. Lactic acid level improved within normal range overnight. OBJECTIVE: VITAL SIGNS: Temperature is 100.6 degrees Fahrenheit today in the afternoon. Blood pressure is 132/56, pulse 114, respiratory rate of 20 saturating 93% on room air. Intake and output: Urine output recorded as 135 mL yesterday, 130 mL so far today since overnight. Weight on the bed scale is 67.8 kg. PHYSICAL EXAMINATION: GENERAL: Patient is laying in bed in mild painful distress. She is oriented times one. She is very hard of hearing. HEAD/NECK EXAM: Extraocular muscles intact. Pupils equally round and reactive to light. Mucous membranes are slightly dry but better today compared with yesterday. Neck is supple. She has a left IJ triple lumen catheter. CARDIOVASCULAR: S1, S2, tachycardia. No edema of the bilateral lower extremities. RESPIRATORY: Chest is clear to auscultation bilaterally. Bilateral good air entry. No rales or rhonchi. ABDOMEN: Soft. Midline surgical scars are noted. Vague abdominal pain in deep inspiration in the epigastric area. GENITOURINARY: She has a right-sided percutaneous nephrostomy and a Dobson catheter as well. Small amount of urine was found in the Dobson catheter and the nephrostomy bags. MUSCULOSKELETAL: No clubbing or stenosis. Pulses are 2+. CENTRAL NERVOUS SYSTEM: Patient is able to follow a few commands. She is awake and moves extremities. LAB REVIEW: CBC showed a WBC of 16.1, hemoglobin 8.2, platelets 195. ABG done this morning showed a pH 7.35, pCO2 33, pO2 63, bicarbonate is 18, Oxygen saturation is 93%. BMP showed sodium 128, potassium 4.7, chloride 100, bicarbonate 17, BUN 52, creatinine 3.7, calcium 7.2, ionized calcium is 4.2, albumin 2.1, and the mitomycin level is 18.4. MICROBIOLOGY: Blood cultures and urine cultures are pending. IMAGING: A CT scan of the abdomen and pelvis without IV or oral contrast was done which showed abdominal aortic aneurysm, which was around 4 cm in diameter. No periaortic hematoma. Right-sided percutaneous nephrostomy, left renal atrophy. Fractures of the right ischium and right pubic symphysis. Advanced bilateral hip osteoarthritis. CURRENT INPATIENT MEDICATIONS: Patient required Levophed overnight, which was stopped. She is on meropenem 500 mg every 12 hours. She has been started on sodium bicarbonate 75 mEq and half normal saline of 60 mL/h. Vancomycin is being adjusted by pharmacy. No other change in the medications today as compared with yesterday. ASSESSMENT/PLAN: 1. Severe sepsis: Patient continues to have fever spikes. She continues to have leukocytosis. She briefly required Levophed overnight. She has a central line. I am going to resume the IV fluid, bicarbonate-containing fluid at 60 mL/h. Source of infection is not known at this point. Cultures are pending. Dose of antibiotic is adequate for renal failure. 2. Acute renal failure: Patient has solitary functioning right kidney with hydronephrosis, status post right-sided percutaneous nephrostomy left renal atrophy. Multifactorial etiology of renal failure including use of angiotensin converting enzyme inhibitors (ANALISA) inhibitors and metformin at home and sepsis and hypotension on arrival. Continue IV fluid hydration. No urgent need of hemodialysis at this point. 3. Metabolic acidosis: It was secondary to a combination of lactic acidosis and renal failure. IV bicarbonate-containing fluids have been started. 4. Hypocalcemia: Patient will be given calcium gluconate 1 gram IV times one dose today. 5. Hypothyroidism: Continue home dose of levothyroxine 100 mcg by mouth daily. 6. Anemia: Patient's hemoglobin is staying stable at 8.2. Some of it is dilutional. No need of blood transfusion at this point. 7. CHRONIC OBSTRUCTIVE PULMONARY DISEASE (COPD): Continue Advair and Spiriva as per pulmonary recommendations. 8. Abdominal aortic aneurysm: This is a new finding. She has a 4 cm aortic aneurysm. There is no hematoma. Management will be done electively by vascular surgery. 9. Right ischium and right pubic symphysis fractures: Patient most likely had a fall at home. Primary team is going to call orthopaedic surgery on board for further recommendations. Total critical care time spent in the management of this patient this morning in the ICU is 50 minutes.
[2018-12-24] MEDS ORDERED: SODIUM CHLORIDE 0.9% INJ 10 ML SYR IV PRN (17:00)
--- NOTE | 2018-12-24 19:38 | REP ---
PORTABLE CHEST: AP portable view of the chest is performed. Comparison is made with prior exam the same day. Left internal jugular line is seen with the tip in the superior vena cava. There is no pneumothorax. There is mild bibasilar infiltrate and effusions. Cardiomediastinal silhouette is unchanged. Electronically Signed by Tan Grande MD 12/24/2018 08:44 P
[2018-12-24] MEDS: IPRATROPIUM 0.5MG/ALBUTEROL 2.5MG INH SOL UD 3ML (DUONEB)(J7620) NEB PRN (20:17)
[2018-12-24] MEDS ORDERED: FUROSEMIDE 40 MG/4 ML VIAL (J1940) IV ONE (21:15)
[2018-12-24] MEDS: VANCOMYCIN HCL 750 MG, VIAL MATE ADAPTER 1 EACH in D5W 250 ML IV SCH (21:25)
[2018-12-24] MEDS: SODIUM CHLORIDE 0.9% INJ 10 ML SYR IV SCH (21:36)
[2018-12-24] MEDS ORDERED: ACETAMINOPHEN 650 MG SUPP PR PRN (21:45)
[2018-12-24 22:03] LABS: CALCIUM LEVEL 7.5 MG/DL (8.8-10.2); CREATININE FOR GFR 3.24 MG/DL (0.55-1.30); GLOMERULAR FILTRATION RATE 14.6 (>32); POTASSIUM SERUM 4.6 MEQ/L (3.5-5.1)
[2018-12-25] VITALS (20 sets, daily range): BP systolic 87–130; BP diastolic 52–68
[2018-12-25] MEDS: IPRATROPIUM 0.5MG/ALBUTEROL 2.5MG INH SOL UD 3ML (DUONEB)(J7620) NEB SCH ×7 (00:31→23:32)
[2018-12-25] MEDS: MORPHINE 4 MG/ML 1ML VIAL/SYRINGE (J2270) IV PRN ×3 (00:37→09:16)
[2018-12-25] MEDS: HumaLOG INSULIN (NovoLOG) PER UNIT SC SCH ×5 (01:12→21:00)
[2018-12-25] MEDS: MEROPENEM INJ 500 MG in APPROPRIATE DILUENT 1 EA IV SCH ×2 (03:58→16:29)
[2018-12-25 05:28] LABS: IONIZED CALCIUM 4.3 MG/DL (4.5-5.3)
[2018-12-25 05:29] LABS: ABG BASE EXCESS -5.7 (-2.0-2.0); ABG HCO3 18.2 MEQ/L (22.0-26.0); ABG O2 SATURATION 88.3 % (95.0-99.0); ABG PARTIAL PRESSURE CO2 30.1 mmHg (35.0-45.0); ABG PARTIAL PRESSURE O2 53.8 mmHg (75.0-100.0); ABG STANDARD HCO3 19.6 MEQ/L (22.0-26.0); ABG TOTAL CO2 19.1 MEQ/L (23.0-31.0); ABG pH (ARTERIAL) 7.399 UNITS (7.350-7.450)
[2018-12-25] MEDS ORDERED: MORPHINE 4 MG/ML 1ML VIAL/SYRINGE (J2270) IV ONE (05:30)
[2018-12-25 05:33] LABS: HEMATOCRIT 26.3 % (36.0-47.0); HEMOGLOBIN 8.6 g/dl (12.0-15.5); MEAN CORPUSCULAR HEMOGLOBIN 28.1 pg (27.0-33.0); MEAN CORPUSCULAR HGB CONC 32.7 g/dl (32.0-36.5); MEAN CORPUSCULAR VOLUME 85.9 fl (80.0-96.0); PLATELET COUNT, AUTOMATED 224 10^3/uL (150-450); RED BLOOD COUNT 3.06 10^6/uL (4.00-5.40); WHITE BLOOD COUNT 12.1 10^3/uL (4.0-10.0)
[2018-12-25 05:57] LABS: ALBUMIN 2.3 GM/DL (3.2-5.2); BILIRUBIN,TOTAL 0.3 MG/DL (0.2-1.0); CALCIUM LEVEL 7.6 MG/DL (8.8-10.2); CREATININE FOR GFR 3.02 MG/DL (0.55-1.30); GLOMERULAR FILTRATION RATE 15.8 (>32); PHOSPHORUS LEVEL 3.8 MG/DL (2.5-4.9); POTASSIUM SERUM 4.8 MEQ/L (3.5-5.1); TOTAL PROTEIN 4.9 GM/DL (6.4-8.2)
[2018-12-25] MEDS: TIOTROPIUM INHALER/CAPSULE (SPIRIVA) INH SCH (07:32)
[2018-12-25] MEDS: ADVAIR HFA 230/21MCG INHALER INH SCH ×2 (07:33→20:00)
--- NOTE | 2018-12-25 08:38 | REP ---
Portable chest, 07:15 a.m., single AP semi upright view: Comparison is 12/24/2018 at 06:40 p.m.. The right basilar infiltrate has increased. Left basilar infiltrate is unchanged. Lung madrigal otherwise clear. Cardiac size is mildly enlarged, unchanged. The left IJ central venous catheter tip superimposed over the superior vena cava, unchanged. Impression: The right basilar infiltrate has increased. Electronically Signed by Tan Bruno MD 12/25/2018 08:30 A
[2018-12-25] MEDS: ATORVASTATIN 20 MG TAB PO SCH (09:13)
[2018-12-25] MEDS: HEPARIN SOD (PORCINE) 5000 UNITS/ML VIAL SC SCH ×2 (09:14→21:04)
[2018-12-25] MEDS: PANTOPRAZOLE 20 MG TAB PO SCH ×2 (09:14→21:03)
[2018-12-25] MEDS: LEVOTHYROXINE 100MCG TABLET (0.1MG) PO SCH (09:14)
[2018-12-25] MEDS: ASPIRIN 81 MG ENTERIC TAB PO SCH (09:14)
[2018-12-25] MEDS: SODIUM CHLORIDE 0.9% INJ 10 ML SYR IV SCH ×3 (09:20→21:05)
[2018-12-25] MEDS ORDERED: CALCIUM GLUCONATE 1,000 MG in D5W MINI-BAG PLUS 100 ML IV ONE (11:00)
[2018-12-25] MEDS ORDERED: FUROSEMIDE 20 MG/2 ML VIAL (J1940) IV ONE (11:00)
[2018-12-25] MEDS: NORCO, ANEXSIA 5/325MG TABLET (HYDROcodone/ACETAMINOPHEN) PO PRN ×3 (11:13→21:03)
[2018-12-25] MEDS: predniSONE 20 MG TAB PO SCH (11:13)
--- NOTE | 2018-12-25 12:27 | NUR ---
Swallow Eval Recommendations: Level 2 mechanically altered (NDD) solids [place] thick liquids, straws OK Puree assist for med administration prn Assist for feeding & upright positioning Dysphagia tx for compensatory strategy training. Addendum: 12/25/18 at 1227 by [facility] Amended: Links added.
--- NOTE | 2018-12-25 13:43 | IPNPDOC ---
Subjective Date Seen The patient was seen on 12/25/18. Subjective Chief Complaint/HPI Patient comfortable off BiPAP on oxygen by nasal cannula. NO new complaints General: Reports: Normal Appetite; Denies: Chills, Night Sweats, Fatigue, Malaise Constitutional: Denies: Chills, Fever, Night Sweats Eyes: Denies: Pain, Vision change ENT: Denies: Head Aches, Ear Pain, Dysphagia Skin: Denies: Rash, Lesions, Breakdown Pulmonary: Denies: Dyspnea, Cough Cardiovascular: Denies: Chest Pain, Palpitations, Orthopnea, Paroxysmal Noc. Dyspnea, Lt Headedness Gastrointestinal: Denies: Nausea, Vomiting, Abdominal Pain, Diarrhea, Constipation Genitourinary: Denies: Dysuria, Frequency, Incontinence, Retention Hematologic: Denies: Bruising, Bleeding Excessively Musculoskeletal: Denies: Neck Pain, Back Pain, Joint Pain, Muscle Pain, Spasms Neurological: Denies: Weakness, Numbness, Change in speech, Confusion Psych: Reports: Mood Normal; Denies: Depression, Memory Issues Objective Physical Examination General Exam: Positive: Alert, No Acute Distress Eye Exam: Positive: PERRLA, Conjunctiva & lids normal, EOMI; Negative: Sclera icteric ENT Exam: Positive: Atraumatic, Mucous membr. moist/pink, Pharynx Normal Neck Exam: Positive: Supple; Negative: JVD, thyromegaly Chest Exam: Positive: Clear to auscultation, Normal air movement Heart Exam: Positive: Rate Normal, Regular Rhythm, Normal S1, Normal S2; Negative: Murmurs, Rubs Telemetry: Positive: No significant arrhythmia Abdomen Exam: Positive: Normal bowel sounds, Soft; Negative: Tenderness, Hepatospenomegaly Extremity Exam: Positive: Normal pulses; Negative: Clubbing, Cyanosis, Edema Skin Exam: Positive: Nl turgor and temperature; Negative: Breakdown, Lesion Neuro Exam: Positive: Normal Gait, Normal Speech, Cranial Nerves 3-12 NL, Reflexes 2+ Psych Exam: Positive: Mental status NL, Mood NL, Oriented x 3 Assessment /Plan Problems (1) Sepsis Status: Acute Response to Treatment: Uncompensated Discussed With: Manager Payment Problem Text: Patient received 2 L of normal saline boluses followed by normal saline at 150 mL/h which was later on decreased to 50 mL per hour. Considering patient's history for congestive heart failure after enough hydration. Patient's blood pressure was found to be hypotensive last night and she was started on vasopressors by Dr. Koehler. Patient is off vasopressor right now. Vital signs are stable. IV fluid normal saline at 50 mL per hour. Continue meropenem and vancomycin, which patient seems to be responding very well Patient is a lactic acid is down to normal limit, now 1.6 She had a CAT scan done at that out outside facility, which was essentially within normal limits at Will order a repeat CT abdomen without contrast secondary to tenderness at the abdomen Urine and blood cultures are still pending WBC count is slightly low today. We will repeat laboratory work in a.m. Continue cardiac monitoring. Critical care monitoring He responded very well to diuresis, now with good urine output Possible transfer to PCU for further care. He is off BiPAP and will start BiPAP at nighttime BTL to get him out of bed His blood sugar has been fine, so his Lantus was increased and Solu-Medrol has been changed to by mouth prednisone to decrease serum blood sugar Nephrology and critical care consultation. Appreciate Further, as per Dr. Palomino and Dr. Koehler recommended. Recommendations Plan/VTE VTE Prophylaxis Ordered?: Yes VS, I&O, 24H, Fishbone Vital Signs/I&O Vital Signs Date Time Temp Pulse Resp B/P (MAP) Pulse Ox O2 Delivery O2 Flow Rate FiO2 12/25/18 12:00 2.0 12/25/18 11:43 20 12/25/18 06:15 100.8 92 35 12/25/18 06:00 123 104/66 (79) I&O- Last 24 Hours up to 6 AM 12/25/18 06:00 Intake Total 2165 ml Output Total 1719 ml Balance 446 ml Laboratory Data 24H LABS Laboratory Tests 2 12/24/18 17:25: Bedside Glucose (Misc Panel) 127H 12/24/18 21:29: Anion Gap 12, Glomerular Filtration Rate 14.6L, Blood Urea Nitrogen 52H, Creatinine 3.24H, Sodium Level 127L, Potassium Level 4.6, Chloride Level 98, Carbon Dioxide Level 17L, Calcium Level 7.5L 12/25/18 00:35: Bedside Glucose (Misc Panel) 170H 12/25/18 05:08: Anion Gap 9, Glomerular Filtration Rate 15.8L, Blood Urea Nitrogen 49H, Creatinine 3.02H, Sodium Level 129L, Potassium Level 4.8, Chloride Level 100, Carbon Dioxide Level 20L, Calcium Level 7.6L, Nucleated Red Blood Cells % (auto) 0.0, Blood Gas Bicarbonate Standard 19.6L, Arterial Blood pH 7.399, Arterial Blood Partial Pressure CO2 30.1L, Arterial Blood Partial Pressure O2 53.8L, Arterial Blood Total CO2 19.1L, Arterial Blood HCO3 18.2L, Arterial Blood Base Excess -5.7L, Arterial Blood Oxygen Saturation 88.3L, Phosphorus Level 3.8, Aspartate Amino Transf (AST/SGOT) 38H, Alanine Aminotransferase (ALT/SGPT) 17, Alkaline Phosphatase 107, Total Bilirubin 0.3, Total Protein 4.9L, Albumin 2.3L, Whole Blood Ionized Calcium 4.3L, Magnesium Level 2.0, Albumin/Globulin Ratio 0.88L 12/25/18 11:08: Bedside Glucose (Misc Panel) 184H CBC/BMP Laboratory Tests 12/24/18 21:29 Calcium Level 7.5 L 12/25/18 05:08 Calcium Level 7.6 L, Red Blood Count 3.06 L, Mean Corpuscular Volume 85.9, Mean Corpuscular Hemoglobin 28.1, Mean Corpuscular Hemoglobin Concent 32.7, Red Cell Distribution Width 15.2 H, Phosphorus Level 3.8, Aspartate Amino Transf ( T/SGOT) 38 H, Alanine Aminotransferase (ALT/SGPT) 17, Alkaline Phosphatase 107, Total Bilirubin 0.3, Total Protein 4.9 L, Albumin 2.3 L Microbiology Microbiology 12/23/18 Blood Culture - Preliminary, Resulted No growth after 24 hours . All specim... 12/23/18 Blood Culture - Preliminary, Resulted No growth after 24 hours . All specim... 12/23/18 Urine Culture - Final, Complete KARI MARQUEZ MD Dec 25, 2018 13:43
--- NOTE | 2018-12-25 13:49 | IPNPDOC ---
Subjective Date Seen The patient was seen on 12/25/18. Subjective Chief Complaint/HPI Yesterday patient had an episode of hypoxia after coughing on a some liquids Patient had a chest x-ray done which were essentially negative. He was started on Ventimask and did later received Lasix 20 mg IV push with good improvement of the symptoms Action is currently currently sitting in a chair in no apparent distress, afebrile at the present time General: Reports: Normal Appetite; Denies: Chills, Night Sweats, Fatigue, Malaise Constitutional: Denies: Chills, Fever, Night Sweats Eyes: Denies: Pain, Vision change ENT: Denies: Head Aches, Ear Pain, Dysphagia Skin: Denies: Rash, Lesions, Breakdown Pulmonary: Denies: Dyspnea, Cough Cardiovascular: Denies: Chest Pain, Palpitations, Orthopnea, Paroxysmal Noc. Dyspnea, Lt Headedness Gastrointestinal: Denies: Nausea, Vomiting, Abdominal Pain, Diarrhea, Constipation Genitourinary: Denies: Dysuria, Frequency, Incontinence, Retention Hematologic: Denies: Bruising, Bleeding Excessively Musculoskeletal: Denies: Neck Pain, Back Pain, Joint Pain, Muscle Pain, Spasms Neurological: Denies: Weakness, Numbness, Change in speech, Confusion Psych: Reports: Mood Normal; Denies: Depression, Memory Issues Objective Physical Examination General Exam: Positive: Alert, No Acute Distress Eye Exam: Positive: PERRLA, Conjunctiva & lids normal, EOMI; Negative: Sclera icteric ENT Exam: Positive: Atraumatic, Mucous membr. moist/pink, Pharynx Normal Neck Exam: Positive: Supple; Negative: JVD, thyromegaly Chest Exam: Positive: Clear to auscultation, Normal air movement Heart Exam: Positive: Rate Normal, Regular Rhythm, Normal S1, Normal S2; Negative: Murmurs, Rubs Telemetry: Positive: No significant arrhythmia Abdomen Exam: Positive: Normal bowel sounds, Soft; Negative: Tenderness, Hepatospenomegaly Female Exam: Positive: Nl Ext Genitalia; Negative: Lesions, Discharge, Odor, Tenderness Extremity Exam: Positive: Normal pulses; Negative: Clubbing, Cyanosis, Edema Skin Exam: Positive: Nl turgor and temperature; Negative: Breakdown, Lesion Neuro Exam: Positive: Normal Gait, Normal Speech, Cranial Nerves 3-12 NL, Reflexes 2+ Psych Exam: Positive: Mental status NL, Mood NL, Oriented x 3 Assessment /Plan Problems (1) Sepsis Status: Acute Response to Treatment: Uncompensated Discussed With: Channel Rougher Problem Text: Patient received 2 L of normal saline boluses followed by normal saline at 150 mL/h which was later on decreased to 50 mL per hour. Considering patient's history for congestive heart failure after enough hydration. Patient's blood pressure was found to be hypotensive last night and she was started on vasopressors by Dr. Koehler. Patient is off vasopressor right now. Vital signs are stable. IV fluid normal saline at 50 mL per hour. Continue meropenem and vancomycin, which patient seems to be responding very well Patient is a lactic acid is down to normal limit, now 1.6 She had a CAT scan done at that out outside facility, which was essentially within normal limits at Will order a repeat CT abdomen without contrast sec ondary to tenderness at the abdomen: Repeat CAT scan of the abdomen is essentially within normal limits Urine and blood cultures are still pending WBC count is slightly low today. We will repeat laboratory work in a.m. Continue cardiac monitoring. Critical care monitoring Continue IV antibiotics. Awaiting pending cultures. Reports Chopped diet with thickened fluid as recommended by speech and swallow Out of bed as tolerated Nephrology and critical care consultation. Appreciate Further, as per Dr. Palomino and Dr. Koehler recommended. Recommendations Plan/VTE VTE Prophylaxis Ordered?: Yes VS, I&O, 24H, Fishbone Vital Signs/I&O Vital Signs Date Time Temp Pulse Resp B/P (MAP) Pulse Ox O2 Delivery O2 Flow Rate FiO2 12/25/18 12:00 2.0 12/25/18 11:43 20 12/25/18 06:15 100.8 92 35 12/25/18 06:00 123 104/66 (79) I&O- Last 24 Hours up to 6 AM 12/25/18 06:00 Intake Total 2165 ml Output Total 1719 ml Balance 446 ml Laboratory Data 24H LABS Laboratory Tests 2 12/24/18 17:25: Bedside Glucose (Misc Panel) 127H 12/24/18 21:29: Anion Gap 12, Glomerular Filtration Rate 14.6L, Blood Urea Nitrogen 52H, Creatinine 3.24H, Sodium Level 127L, Potassium Level 4.6, Chloride Level 98, Carbon Dioxide Level 17L, Calcium Level 7.5L 12/25/18 00:35: Bedside Glucose (Misc Panel) 170H 12/25/18 05:08: Anion Gap 9, Glomerular Filtration Rate 15.8L, Blood Urea Nitrogen 49H, Creatinine 3.02H, Sodium Level 129L, Potassium Level 4.8, Chloride Level 100, Carbon Dioxide Level 20L, Calcium Level 7.6L, Nucleated Red Blood Cells % (auto) 0.0, Blood Gas Bicarbonate Standard 19.6L, Arterial Blood pH 7.399, Arterial Blood Partial Pressure CO2 30.1L, Arterial Blood Partial Pressure O2 53.8L, Arterial Blood Total CO2 19.1L, Arterial Blood HCO3 18.2L, Arterial Blood Base Excess -5.7L, Arterial Blood Oxygen Saturation 88.3L, Phosphorus Level 3.8, Aspartate Amino Transf (AST/SGOT) 38H, Alanine Aminotransferase (ALT/SGPT) 17, A lkaline Phosphatase 107, Total Bilirubin 0.3, Total Protein 4.9L, Albumin 2.3L, Whole Blood Ionized Calcium 4.3L, Magnesium Level 2.0, Albumin/Globulin Ratio 0.88L 12/25/18 11:08: Bedside Glucose (Misc Panel) 184H CBC/BMP Laboratory Tests 12/24/18 21:29 Calcium Level 7.5 L 12/25/18 05:08 Calcium Level 7.6 L, Red Blood Count 3.06 L, Mean Corpuscular Volume 85.9, Mean Corpuscular Hemoglobin 28.1, Mean Corpuscular Hemoglobin Concent 32.7, Red Cell Distribution Width 15.2 H, Phosphorus Level 3.8, Aspartate Amino Transf (AST/SGOT) 38 H, Alanine Aminotransferase (ALT/SGPT) 17, Alkaline Phosphatase 107, Total Bilirubin 0.3, Total Protein 4.9 L, Albumin 2.3 L Microbiology Microbiology 12/23/18 Blood Culture - Preliminary, Resulted No growth after 24 hours . All specim... 12/23/18 Blood Culture - Preliminary, Resulted No growth after 24 hours . All specim... 12/23/18 Urine Culture - Final, Complete KARI MARQUEZ MD Dec 25, 2018 13:49
[2018-12-25] MEDS: FEBUXOSTAT 40 MG TABLET (ULORIC) PO SCH (14:27)
[2018-12-25 14:43] LABS: APPEARANCE, URINE CLEAR (CLEAR); BACTERIA, URINE AUTO 1+ (NEGATIVE); BILIRUBIN, URINE AUTO NEGATIVE (NEGATIVE); BLOOD, URINE BLOOD 2+ (NEGATIVE); COLOR, URINE STRAW (YELLOW); GLUCOSE, URINE (UA) AUTO NEGATIVE (NEGATIVE); KETONE, URINE AUTO NEGATIVE (NEGATIVE); LEUKOCYTE ESTERASE, URINE AUTO 1+ (NEGATIVE); NITRITE, URINE AUTO NEGATIVE (NEGATIVE); PROTEIN, URINE AUTO NEGATIVE (NEGATIVE); RBC, URINE AUTO 1 /HPF (0-3); SPECIFIC GRAVITY URINE AUTO 1.005 (1.002-1.035); SQUAMOUS EPITHELIAL CELL UR AU 0 /HPF (0-6); UROBILINOGEN, URINE AUTO 0.2 mg/dL (0.0-2.0); WBC, URINE AUTO 11 /HPF (0-3)
--- NOTE | 2018-12-25 14:45 | IPN ---
DATE OF SERVICE: 12/25/2018 SUBJECTIVE: The patient was seen and examined at the bedside today morning. She is hemodynamically more stable today. She was sitting up on the sofa and eating her breakfast with the help of her nursing the morning when I saw her. Last 24 hour events were noted. Patient was hypoxemic and tachycardic overnight. She was evaluated by the occupational safety and health manager resident. The case was discussed with myself by the resident and decision was to stop the IV fluid and give her a dose of Lasix. She was given Lasix 40 mg IV times one dose. She responded well to the diuretics. Her renal function is gradually improving and urine output is getting better. She continues to have off and on fever spikes, however, leukocytosis is gradually improving. OBJECTIVE: VITAL SIGNS: Temperature is 100.8 degrees Fahrenheit, blood pressure 104/66, pulse 123, respiratory rate of 20 saturating 92% on 2 liters via nasal cannula. Intake and output: Urine output recorded as almost 1100 mL yesterday and about 500 mL so far today since overnight. Weight on the bed scale is 72 kg. PHYSICAL EXAMINATION: GENERAL: Patient is awake, alert, oriented times two. She is hard of hearing. Sitting up on the sofa wearing nasal cannula. HEAD/NECK EXAM: Extraocular muscles intact. Pupils equally round and reactive to light. Mucous membranes are moist. Neck is supple. No jugular venous distention (JVD). She has a left IJ triple lumen catheter. CARDIOVASCULAR: S1, S2, tachycardia. No edema of the bilateral lower extremities. RESPIRATORY: Mildly decreased breath sounds at the bases with mild crepitations on deep inspiration. ABDOMEN: Soft. Old midline surgical scar. GENITOURINARY: She has a right-sided percutaneous nephrostomy tube and she has a Dobson catheter as well. Urine in both bags is clear. MUSCULOSKELETAL: No clubbing or stenosis. Pulses are 2+. CENTRAL NERVOUS SYSTEM: Patient has resting tremors both bilateral upper and lower extremities. Otherwise she is awake and alert and able to follow commands. LAB REVIEW: CBC showed a WBC of 12.1, hemoglobin 8.6, platelets 224. ABG done today morning showed a pH 7.39, pCO2 30, pO2 53, bicarbonate is 18.2, Oxygen saturation is 88.3%. BMP today morning showed sodium 129, potassium 4.8, chloride 100, bicarbonate 20, BUN 49, creatinine 3, it was 3.2 yesterday, ionized calcium is 4.2, albumin 2.3. MICROBIOLOGY: Blood cultures and urine cultures are negative so far. IMAGING: A chest x-ray was done today morning that showed right basilar infiltrate has increased. CURRENT INPATIENT MEDICATIONS: Patient was given a dose of calcium gluconate 1 gram IV today morning. She continues to be on IV meropenem. IV fluids have been stopped. She was given one dose of Lasix 40 mg overnight and I have ordered another dose of Lasix 20 mg IV today morning. I have started her on Uloric 40 mg by mouth daily along with prednisone prophylaxis of 20 mg by mouth daily. ASSESSMENT/PLAN: 1. Sepsis. Patient continues to have fever spikes. Leukocytosis is improving. She is responding to the IV antibiotics. Cultures are negative so far. Most likely source is urine although cultures are negative, but patient was already given antibiotics when cultures were sent. 2. Acute renal failure. Patient has history of renal failure requiring dialysis in the past as well. However, acute renal failure is multifactorial secondary to severe sepsis and hypotension on arrival. He uses angiotensin-converting enzyme (ANALISA) inhibitors and metformin at home. Renal function is gradually improving. Urine output is more than a liter a day. I will continue to monitor. 3. Hypoxemia secondary to fluid overload. Patient was aggressively hydrated which caused respiratory distress. She was given a dose of Lasix 40 mg IV which helped improved her breathing. I have given her another dose of Lasix 20 mg IV times one dose. 4. Metabolic acidosis. It was secondary to acute renal failure. Bicarbonate level is gradually improving with improvement in the renal function. No need for bicarbonate administration at this point. 5. Hypocalcemia. Patient will be given a dose of calcium gluconate 1 gram IV times one dose. 6. Chronic gout secondary to chronic kidney disease. Patient's uric acid level done yesterday is 8.7. I have started her on Uloric 40 mg by mouth daily along with a prednisone of 20 mg daily for 5 days for acute gout flare-up prophylaxis. 7. Anemia secondary to chronic kidney disease. Hemoglobin is 8.6 which is accetable for now. No need of blood transfusion at this point. 8. Hyponatremia. Patient has hypervolemic hyponatremia. Sodium level is improving with improvement in the renal function and more urine output. 9. Chronic obstructive pulmonary artery disease (COPD). Continue Advair and Spiriva. 10. Fever spikes. Secondary to sepsis. Avoid use of nonsteroidal anti-inflammatory drugs (NSAIDs). It is okay to take Tylenol as needed. Total critical care time spent in the management of this patient today morning in the intensive care unit (ICU) is 45 minutes, that does not include any procedures.
[2018-12-25] MEDS: MOM 30ML SUSPENSION UDC PO PRN (17:01)
[2018-12-25] MEDS: DOCUSATE SODIUM 100 MG CAP PO SCH (21:04)
[2018-12-25] MEDS: VANCOMYCIN HCL 750 MG, VIAL MATE ADAPTER 1 EACH in D5W 250 ML IV SCH (22:15)
[2018-12-26] MEDS: MORPHINE 4 MG/ML 1ML VIAL/SYRINGE (J2270) IV PRN ×2 (00:14→02:30)
[2018-12-26] MEDS: MEROPENEM INJ 500 MG in APPROPRIATE DILUENT 1 EA IV SCH ×2 (04:00→15:51)
[2018-12-26] MEDS: IPRATROPIUM 0.5MG/ALBUTEROL 2.5MG INH SOL UD 3ML (DUONEB)(J7620) NEB SCH ×6 (04:29→23:50)
[2018-12-26] MEDS: LEVOTHYROXINE 100MCG TABLET (0.1MG) PO SCH (05:14)
[2018-12-26] MEDS: SODIUM CHLORIDE 0.9% INJ 10 ML SYR IV SCH ×3 (05:15→21:06)
[2018-12-26] MEDS: NORCO, ANEXSIA 5/325MG TABLET (HYDROcodone/ACETAMINOPHEN) PO PRN ×3 (05:15→22:32)
[2018-12-26] MEDS: HumaLOG INSULIN (NovoLOG) PER UNIT SC SCH ×4 (07:49→20:37)
--- NOTE | 2018-12-26 07:54 | REP ---
Oral chest x-ray: Single view. History: Sepsis. Comparison study: December 25, 2018. Findings: EKG monitoring electrodes overlie the chest. Oxygen delivery tubing is seen. A left internal jugular central venous line is seen in place with its tip in the expected location of the superior vena cava. Cardiomegaly is observed as before. Interstitial markings are somewhat prominent. Discoid atelectasis is seen in the left base. Previously noted opacity in the right base is again seen essentially unchanged. This may be atelectasis as well. There is diffuse osteopenia. Orthopedic fixation device is visible in the proximal humerus on the right. Impression: Cardiomegaly. Bibasilar opacities. No significant change. Electronically Signed by Leopoldo Nielson MD 12/26/2018 07:47 A
[2018-12-26 08:00] VITALS: BP 133/72
[2018-12-26] MEDS: FEBUXOSTAT 40 MG TABLET (ULORIC) PO SCH (08:17)
[2018-12-26] MEDS: predniSONE 20 MG TAB PO SCH (08:17)
[2018-12-26] MEDS: PANTOPRAZOLE 20 MG TAB PO SCH ×2 (08:17→20:34)
[2018-12-26] MEDS: ASPIRIN 81 MG ENTERIC TAB PO SCH (08:17)
[2018-12-26] MEDS: ATORVASTATIN 20 MG TAB PO SCH (08:17)
[2018-12-26] MEDS: DOCUSATE SODIUM 100 MG CAP PO SCH ×2 (08:17→20:34)
[2018-12-26] MEDS: HEPARIN SOD (PORCINE) 5000 UNITS/ML VIAL SC SCH ×2 (08:18→20:34)
[2018-12-26 08:47] LABS: HEMATOCRIT 23.8 % (36.0-47.0); HEMOGLOBIN 7.9 g/dl (12.0-15.5); MEAN CORPUSCULAR HEMOGLOBIN 28.8 pg (27.0-33.0); MEAN CORPUSCULAR HGB CONC 33.2 g/dl (32.0-36.5); MEAN CORPUSCULAR VOLUME 86.9 fl (80.0-96.0); PLATELET COUNT, AUTOMATED 197 10^3/uL (150-450); RED BLOOD COUNT 2.74 10^6/uL (4.00-5.40); WHITE BLOOD COUNT 6.7 10^3/uL (4.0-10.0)
[2018-12-26 09:06] LABS: ALBUMIN 2.3 GM/DL (3.2-5.2); BILIRUBIN,TOTAL 0.2 MG/DL (0.2-1.0); CALCIUM LEVEL 7.9 MG/DL (8.8-10.2); CREATININE FOR GFR 1.97 MG/DL (0.55-1.30); GLOMERULAR FILTRATION RATE 25.9 (>32); POTASSIUM SERUM 4.5 MEQ/L (3.5-5.1)
[2018-12-26 09:51] LABS: VANCOMYCIN RANDOM 22.4 UG/ML
[2018-12-26] MEDS: ADVAIR HFA 230/21MCG INHALER INH SCH ×2 (11:18→19:41)
[2018-12-26] MEDS: TIOTROPIUM INHALER/CAPSULE (SPIRIVA) INH SCH (11:18)
[2018-12-26] MEDS: VANCOMYCIN HCL 1,000 MG, VIAL MATE ADAPTER 1 EACH in D5W 250 ML IV SCH (11:29)
[2018-12-26 12:00] VITALS: BP 121/58
--- NOTE | 2018-12-26 12:39 | IPNPDOC ---
Subjective Date Seen The patient was seen on 12/26/18. Subjective Chief Complaint/HPI Patient comfortably sitting in chair in no apparent distress. Offers no new complaints General: Reports: Normal Appetite; Denies: Chills, Night Sweats, Fatigue, Malaise Constitutional: Denies: Chills, Fever, Night Sweats Eyes: Denies: Pain, Vision change ENT: Denies: Head Aches, Ear Pain, Dysphagia Skin: Denies: Rash, Lesions, Breakdown Pulmonary: Denies: Dyspnea, Cough Cardiovascular: Denies: Chest Pain, Palpitations, Orthopnea, Paroxysmal Noc. Dyspnea, Lt Headedness Gastrointestinal: Denies: Nausea, Vomiting, Abdominal Pain, Diarrhea, Constipation Genitourinary: Denies: Dysuria, Frequency, Incontinence, Retention Hematologic: Denies: Bruising, Bleeding Excessively Musculoskeletal: Denies: Neck Pain, Back Pain, Joint Pain, Muscle Pain, Spasms Neurological: Denies: Weakness, Numbness, Change in speech, Confusion Psych: Reports: Mood Normal; Denies: Depression, Memory Issues Objective Physical Examination General Exam: Positive: Alert, No Acute Distress Eye Exam: Positive: PERRLA, Conjunctiva & lids normal, EOMI; Negative: Sclera icteric ENT Exam: Positive: Atraumatic, Mucous membr. moist/pink, Pharynx Normal Neck Exam: Positive: Supple; Negative: JVD, thyromegaly Chest Exam: Positive: Clear to auscultation, Normal air movement Heart Exam: Positive: Rate Normal, Regular Rhythm, Normal S1, Normal S2; Negative: Murmurs, Rubs Telemetry: Positive: No significant arrhythmia Abdomen Exam: Positive: Normal bowel sounds, Soft; Negative: Tenderness, Hepatospenomegaly Female Exam: Positive: Nl Ext Genitalia; Negative: Lesions, Discharge, Odor, Tenderness Extremity Exam: Positive: Normal pulses; Negative: Clubbing, Cyanosis, Edema Skin Exam: Positive: Nl turgor and temperature; Negative: Breakdown, Lesion Neuro Exam: Positive: Normal Gait, Normal Speech, Cranial Nerves 3-12 NL, Reflexes 2+ Psych Exam: Positive: Mental status NL, Mood NL, Oriented x 3 Assessment /Plan Problems (1) Sepsis Status: Acute Response to Treatment: Uncompensated Discussed With: Production Floater Problem Text: Patient received 2 L of normal saline boluses followed by normal saline at 150 mL/h which was later on decreased to 50 mL per hour. Considering patient's history for congestive heart failure after enough hydration. Patient's blood pressure was found to be hypotensive last night and she was started on vasopressors by Dr. Koehler. Patient is off vasopressor right now. Vital signs are stable. IV fluid normal saline at 50 mL per hour. Continue meropenem and vancomycin, which patient seems to be responding very well Patient is a lactic acid is down to normal limit, now 1.6 pro Calcitonin is about 40, which indicates bacterial infection She had a CAT scan done at that out outside facility, which was essentially within normal limits at Will order a repeat CT abdomen without contrast edwardoon saroj to tenderness at the abdomen: Repeat CAT scan of the abdomen is essentially within normal limits Urine and blood cultures are negative, so the source of sepsis is still unknown, but patient seems to be responding to IV antibiotics, and will continue same WBC count is than normal range today. We will repeat laboratory work in a.m. Continue cardiac monitoring. Critical care monitoring Continue IV antibiotics. Awaiting pending cultures. Reports Chopped diet with thickened fluid as recommended by speech and swallow Out of bed as tolerated Nephrology and critical care consultation. Appreciate Further, as per Dr. Palomino and Dr. Koehler recommended. Recommendations Plan/VTE VTE Prophylaxis Ordered?: Yes VS, I&O, 24H, Fishbone Vital Signs/I&O Vital Signs Date Time Temp Pulse Resp B/P (MAP) Pulse Ox O2 Delivery O2 Flow Rate FiO2 12/26/18 12:03 22 97 12/26/18 12:00 97.2 100 121/58 (79) 12/26/18 09:00 2.0 12/26/18 05:45 35 I&O- Last 24 Hours up to 6 AM 12/26/18 06:00 Intake Total 1390 ml Output Total 1400 ml Balance -10 ml Laboratory Data 24H LABS Laboratory Tests 2 12/25/18 14:22: Urine Appearance CLEAR, Urine Color STRAW, Urine pH 6.0, Urine Specific Slaughter 1.005, Urine Protein NEGATIVE, Urine Glucose (UA) NEGATIVE, Urine Ketones NEGATIVE, Urine Urobilinogen 0.2, Urine Bilirubin NEGATIVE, Urine Leukocyte Esterase 1+H, Urine Blood 2+H, Urine Nitrite NEGATIVE, Urine WBC (Auto) 11H, Urine RBC (Auto) 1, Urine Hyaline Casts (Auto) 0, Urine Bacteria (Auto) 1+H, Urine Squamous Epithelial Cells 0, Urine Sperm (Auto) 12/25/18 16:55: Bedside Glucose (Misc Panel) 237H 12/25/18 20:41: Bedside Glucose (Misc Panel) 220H 12/25/18 21:08: Vancomycin Level Trough 15.8 12/26/18 07:35: Bedside Glucose (Misc Panel) 190H 12/26/18 08:22: Nucleated Red Blood Cells % (auto) 0.0, Anion Gap 9, Glomerular Filtration Rate 25.9L, Blood Urea Nitrogen 47H, Creatinine 1.97H, Sodium Level 131L, Potassium Level 4.5, Chloride Level 99, Carbon Dioxide Level 23, Calcium Level 7.9L, Aspartate Amino Transf (AST/SGOT) 52H, Alanine Aminotransferase (ALT/SGPT) 24, Alkaline Phosphatase 130H, Total Bilirubin 0.2, Total Protein 5.0L, Albumin 2.3L, Magnesium Level 2.0, Albumin/Globulin Ratio 0.85L, Random Vancomycin Level 22.4 12/26/18 11:35: Bedside Glucose (Misc Panel) 184H CBC/BMP Laboratory Tests 12/26/18 08:22 Red Blood Count 2.74 L, Mean Corpuscular Volume 86.9, Mean Corpuscular Hemoglobin 28.8, Mean Corpuscular Hemoglobin Concent 33.2, Red Cell Distribution Width 14.9 H, Calcium Level 7.9 L, Aspartate Amino Transf (AST/SGOT) 52 H, Alanine Aminotransferase (ALT/SGPT) 24, Alkaline Phosphatase 130 H, Total Bilirubin 0.2, Total Protein 5.0 L, Albumin 2.3 L Microbiology Microbiology 12/23/18 Blood Culture - Preliminary, Resulted No Growth after 48 hours. All Specime... 12/23/18 Blood Culture - Preliminary, Resulted No Growth after 48 hours. All Specime... 12/23/18 Urine Culture - Final, Complete KARI MARQUEZ MD Dec 26, 2018 12:39
--- NOTE | 2018-12-26 14:20 | PHACANCOPD ---
PHARMACY VANCOMYCIN DOSING Pt Demographics Demographics Patient Age:83 , Weight:72.100 , Gender: female Adjusted Body Weight Date: 12/23/18, Adjusted Body Weight: Kg Events Past 24 Hours Events Past 24 Hours: YES: Change in CrCl; NO: Dialysis, Diuretic Therapy, Fever, Elevation in WBC, Pending Diagnostics, Pending Procedures, Other Vancomycin Vancomycin indication: SEPSIS Vancomycin Load Y/N: Yes Load Dose Date Time Vancomycin Load Dose: 1000MG Date: 12/23 Time: 430AM AT [facility] Vancomycin Dose Date: 12/26/18. Current Vancomycin Dose: [1GM Q24H@12] Date: 12/23/18. Current Vancomycin Dose: [750MG Q24H@21] Intermittent Dosing?: No Labs Labs Vital Signs Label Value Date Time Patient Temperature 97.5 degrees F 12/26/18 0800 Temperature Source Temporal 12/26/18 0800 Patient Temperature 97.2 degrees F 12/26/18 1200 Temperature Source Temporal 12/26/18 1200 Item Value Date Time White Blood Count 16.1 10^3/uL H 12/24/18 0515 White Blood Count 12.1 10^3/uL H 12/25/18 0508 White Blood Count 6.7 10^3/uL 12/26/18 0822 Creatinine 3.24 MG/DL H 12/24/18 2129 Creatinine 3.02 MG/DL H 12/25/18 0508 Creatinine 1.97 MG/DL H 12/26/18 0822 Procalcitonin 39.28 NG/ML 12/24/18 0515 Micro Microbiology 12/23/18 Blood Culture - Preliminary, Resulted No Growth after 72 hours. All specime... 12/23/18 Blood Culture - Preliminary, Resulted No Growth after 72 hours. All specime... 12/23/18 Urine Culture - Final, Complete Creatinine Clearance Date:12/23/18. Creatinine Clearance: . Assessment and Plan Maintaining Current Dose?: No Reason for dose change: Trough too low Pharmacist Note Pharmacist Note 12/26: Today is day 4 of empiric therapy. Patient's Scr improved from 3.02 yesterday to 1.97 so a random was obtained this morning which resulted at 22.4. This was drawn approximately 12 hours after her last dose. Given her improved kidney function her dose was adjusted to Vancomycin 1gm IV q24h starting at noon today. Her WBC is back within normal limits and she is afebrile. All her micro remains negative to date. We will continue to monitor and make adjustments as necessary. 12/24/18: Day #2 empiric vancomycin therapy. A random level was drawn this morning which resulted at 18.4mcg/ml, to ensure that the patient was remaining within therapeutic levels given poor renal function. We will maintain the patient on her current regimen of 750mg IV Q24H @2100, and schedule a follow-up trough level when appropriate. Date: 12/23/18. Pharmacist note: Patient was transferred to here from [facility] today septic. She was admitted with a temperature of 104, WBC of 17.2, and a lactic acid level of 2.2. Her SCR was elevated at 3.83 upon admission, and her SCR on 12/18/18 was 1.1. She received 1 gram of Vancomycin at [facility] at 430am. A random level was obtained upon admission here and resulted at 13.3. No imaging or H&P has been done yet. She has blood cultures pending. She will be started on Vancomycin 750mg q24h starting tonight at 2100. We will continue to monitor and make adjustments. LETHA TOM PHARMACY Dec 26, 2018 14:20
--- NOTE | 2018-12-26 14:40 | IPN ---
DATE: 12/26/2018 Mrs. Alvarado is seen this morning on her bedside. She is sitting in the chair at the time of my visit. She is feeling better today and denies any nausea, vomiting, dyspnea or chest pain. She is using oxygen via nasal cannula. She was diuresed yesterday due to dyspnea and her symptoms improved. She is being treated with antibiotics for sepsis. She also had acute renal failure on admission, which is gradually improving. PHYSICAL EXAMINATION: Temperature 97.2 degrees Fahrenheit, heart rate 100 per minute and respiratory rate 20 per minute. Blood pressure 121/58 mmHg and oxygen saturation 97%. Intake and output records show a negative fluid balance of 330 mL over the last 24 hours. Head is atraumatic. Neck veins are not abnormally distended while she is sitting upright in the chair. Lungs have slightly diminished breath sounds at bases bilaterally. Heart sounds are tachycardiac and regular. Abdomen is soft and nontender and bowel sounds are normal. Extremities have no cyanosis or clubbing. Neurologically, she is awake and able to answer questions appropriately. There is no focal neurological deficit. Today's labs show sodium level 131, potassium 4.5, CO2 23, BUN 47 and creatinine 1.97. Calcium level is 7.9, total protein 5.0 and albumin 2.3. PROBLEMS: 1. Acute renal failure superimposed on chronic kidney disease. Kidney function is improving nicely and she has no uremic symptoms. Her urine output has been adequate. 2. Hyponatremia. Sodium level is gradually improving and we will continue to monitor her electrolytes on a daily basis. She does not need any urgent intervention. I will give her one dose of Lasix 40 mg later this afternoon to maintain slight negative fluid balance. 3. Hypocalcemia. She was given one dose of IV calcium yesterday and her calcium level is now corrected. Her albumin is only 2.3 so her corrected calcium is within normal range. 4. Metabolic acidosis related to acute renal failure, this has already improved. There is no need for sodium bicarbonate. 5. Sepsis. She is currently afebrile and remains on antibiotics. Cultures have been negative.
[2018-12-26 16:00] VITALS: BP 125/59
[2018-12-26 20:00] VITALS: BP 149/72
[2018-12-27] VITALS (9 sets, daily range): BP systolic 125–162; BP diastolic 59–97
[2018-12-27] MEDS: MORPHINE 4 MG/ML 1ML VIAL/SYRINGE (J2270) IV PRN ×3 (02:06→23:46)
[2018-12-27] MEDS: MEROPENEM INJ 500 MG in APPROPRIATE DILUENT 1 EA IV SCH ×2 (03:50→17:18)
[2018-12-27] MEDS: IPRATROPIUM 0.5MG/ALBUTEROL 2.5MG INH SOL UD 3ML (DUONEB)(J7620) NEB SCH ×5 (04:00→20:32)
[2018-12-27] MEDS: SODIUM CHLORIDE 0.9% INJ 10 ML SYR IV SCH ×3 (05:09→20:41)
[2018-12-27] MEDS: LEVOTHYROXINE 100MCG TABLET (0.1MG) PO SCH (05:09)
[2018-12-27] MEDS: NORCO, ANEXSIA 5/325MG TABLET (HYDROcodone/ACETAMINOPHEN) PO PRN ×2 (05:15→18:54)
[2018-12-27] MEDS: IPRATROPIUM 0.5MG/ALBUTEROL 2.5MG INH SOL UD 3ML (DUONEB)(J7620) NEB PRN (05:29)
[2018-12-27 05:36] LABS: HEMATOCRIT 23.9 % (36.0-47.0); HEMOGLOBIN 7.9 g/dl (12.0-15.5); MEAN CORPUSCULAR HEMOGLOBIN 28.7 pg (27.0-33.0); MEAN CORPUSCULAR HGB CONC 33.1 g/dl (32.0-36.5); MEAN CORPUSCULAR VOLUME 86.9 fl (80.0-96.0); PLATELET COUNT, AUTOMATED 212 10^3/uL (150-450); RED BLOOD COUNT 2.75 10^6/uL (4.00-5.40); WHITE BLOOD COUNT 6.1 10^3/uL (4.0-10.0)
[2018-12-27 05:46] LABS: ALBUMIN 2.3 GM/DL (3.2-5.2); BILIRUBIN,TOTAL 0.3 MG/DL (0.2-1.0); CALCIUM LEVEL 8.1 MG/DL (8.8-10.2); CREATININE FOR GFR 1.86 MG/DL (0.55-1.30); GLOMERULAR FILTRATION RATE 27.7 (>32); MAGNESIUM LEVEL 1.8 MG/DL (1.8-2.4); TOTAL PROTEIN 5.3 GM/DL (6.4-8.2)
[2018-12-27 06:01] LABS: POTASSIUM SERUM 5.4 MEQ/L (3.5-5.1)
[2018-12-27] MEDS: FEBUXOSTAT 40 MG TABLET (ULORIC) PO SCH (08:10)
[2018-12-27] MEDS: ATORVASTATIN 20 MG TAB PO SCH (08:10)
[2018-12-27] MEDS: PANTOPRAZOLE 20 MG TAB PO SCH ×2 (08:10→20:41)
[2018-12-27] MEDS: HEPARIN SOD (PORCINE) 5000 UNITS/ML VIAL SC SCH ×2 (08:10→20:40)
[2018-12-27] MEDS: DOCUSATE SODIUM 100 MG CAP PO SCH ×2 (08:10→20:40)
[2018-12-27] MEDS: ASPIRIN 81 MG ENTERIC TAB PO SCH (08:10)
[2018-12-27] MEDS: predniSONE 20 MG TAB PO SCH (08:10)
[2018-12-27] MEDS: HumaLOG INSULIN (NovoLOG) PER UNIT SC SCH ×4 (08:13→20:49)
[2018-12-27] MEDS: ADVAIR HFA 230/21MCG INHALER INH SCH ×2 (08:41→20:32)
[2018-12-27] MEDS: TIOTROPIUM INHALER/CAPSULE (SPIRIVA) INH SCH (08:41)
--- NOTE | 2018-12-27 10:32 | IPNPDOC ---
Subjective Date Seen The patient was seen on 12/27/18. Subjective Chief Complaint/HPI Patient sitting on side of her bed in the breakfast offers no new complaints General: Reports: Normal Appetite; Denies: Chills, Night Sweats, Fatigue, Malaise Constitutional: Denies: Chills, Fever, Night Sweats Eyes: Denies: Pain, Vision change ENT: Denies: Head Aches, Ear Pain, Dysphagia Skin: Denies: Rash, Lesions, Breakdown Pulmonary: Denies: Dyspnea, Cough Cardiovascular: Denies: Chest Pain, Palpitations, Orthopnea, Paroxysmal Noc. Dyspnea, Lt Headedness Gastrointestinal: Denies: Nausea, Vomiting, Abdominal Pain, Diarrhea, Constipation Genitourinary: Denies: Dysuria, Frequency, Incontinence, Retention Hematologic: Denies: Bruising, Bleeding Excessively Musculoskeletal: Denies: Neck Pain, Back Pain, Joint Pain, Muscle Pain, Spasms Neurological: Denies: Weakness, Numbness, Change in speech, Confusion Psych: Reports: Mood Normal; Denies: Depression, Memory Issues Objective Physical Examination General Exam: Positive: Alert, No Acute Distress Eye Exam: Positive: PERRLA, Conjunctiva & lids normal, EOMI; Negative: Sclera icteric ENT Exam: Positive: Atraumatic, Mucous membr. moist/pink, Pharynx Normal Neck Exam: Positive: Supple; Negative: JVD, thyromegaly Chest Exam: Positive: Clear to auscultation, Normal air movement Heart Exam: Positive: Rate Normal, Regular Rhythm, Normal S1, Normal S2; Negative: Murmurs, Rubs Telemetry: Positive: No significant arrhythmia Abdomen Exam: Positive: Normal bowel sounds, Soft; Negative: Tenderness, Hepatospenomegaly Female Exam: Positive: Nl Ext Genitalia; Negative: Lesions, Discharge, Odor, Tenderness Extremity Exam: Positive: Normal pulses; Negative: Clubbing, Cyanosis, Edema Skin Exam: Positive: Nl turgor and temperature; Negative: Breakdown, Lesion Neuro Exam: Positive: Normal Gait, Normal Speech, Cranial Nerves 3-12 NL, Reflexes 2+ Psych Exam: Positive: Mental status NL, Mood NL, Oriented x 3 Assessment /Plan Problems (1) Sepsis Status: Acute Response to Treatment: Uncompensated Discussed With: Merchant Tailor Problem Text: Patient received 2 L of normal saline boluses followed by normal saline at 150 mL/h which was later on decreased to 50 mL per hour. Considering patient's history for congestive heart failure after enough hydration. Patient's blood pressure was found to be hypotensive last night and she was started on vasopressors by Dr. Koehler. Patient is off vasopressor right now. Vital signs are stable. IV fluid normal saline at 50 mL per hour. Continue meropenem and vancomycin, which patient seems to be responding very well Patient is a lactic acid is down to normal limit, now 1.6 pro Calcitonin is about 40, which indicates bacterial infection She had a CAT scan done at that out outside facility, which was essentially within normal limits at Will order a repeat CT abdomen without contrast secondary to tenderness at the abdomen: Repeat CAT scan of the abdomen is essentially within normal limits Urine and blood cultures are negative, so the source of sepsis is still unknown, but patient seems to be responding to IV antibiotics, and will continue same WBC count is than normal range today. We will repeat laboratory work in a.m. Continue cardiac monitoring. Critical care monitoring Continue IV antibiotics. Awaiting pending cultures. Reports Chopped diet with thickened fluid as recommended by speech and swallow Out of bed as tolerated This is day 5 of IV antibiotics. We will finish the course for 7 days and then patient can be discharged home. His cultures are all negative so far Patient's nephrostomy tube is functioning very well Nephrology and critical care consultation on the case Plan/VTE VTE Prophylaxis Ordered?: Yes VS, I&O, 24H, Fishbone Vital Signs/I&O Vital Signs Date Time Temp Pulse Resp B/P (MAP) Pulse Ox O2 Delivery O2 Flow Rate FiO2 12/27/18 08:00 97.4 62 20 132/91 (105) 94 12/26/18 09:00 2.0 12/26/18 05:45 35 I&O- Last 24 Hours up to 6 AM 12/27/18 06:00 Intake Total 1033 ml Output Total 975 ml Balance 58 ml Laboratory Data 24H LABS Laboratory Tests 2 12/26/18 11:35: Bedside Glucose (Misc Panel) 184H 12/26/18 17:09: Bedside Glucose (Misc Panel) 258H 12/26/18 20:37: Bedside Glucose (Misc Panel) 236H 12/27/18 04:58: Nucleated Red Blood Cells % (auto) 0.0, Anion Gap 8, Glomerular Filtration Rate 27.7L, Blood Urea Nitrogen 46H, Creatinine 1.86H, Sodium Level 131L, Potassium Level 5.4H, Chloride Level 101, Carbon Dioxide Level 22, Calcium Level 8.1L, Aspartate Amino Transf (AST/SGOT) 72H, Alanine Aminotransferase (ALT/SGPT) 40, Alkaline Phosphatase 151H, Total Bilirubin 0.3, Total Protein 5.3L, Albumin 2.3L, Magnesium Level 1.8, Albumin/Globulin Ratio 0.77L CBC/BMP Laboratory Tests 12/27/18 04:58 Red Blood Count 2.75 L, Mean Corpuscular Volume 86.9, Mean Corpuscular Hemoglobin 28.7, Mean Corpuscular Hemoglobin Concent 33.1, Red Cell Distribution Width 15.0 H, Calcium Level 8.1 L, Aspartate Amino Transf (AST/SGOT) 72 H, Alanine Aminotransferase (ALT/SGPT) 40, Alkaline Phosphatase 151 H, Total Bilirubin 0.3, Total Protein 5.3 L, Albumin 2.3 L Microbiology Microbiology 12/23/18 Blood Culture - Preliminary, Resulted No Growth after 72 hours. All specime... 12/23/18 Blood Culture - Preliminary, Resulted No Growth after 72 hours. All specime... 12/23/18 Urine Culture - Final, Complete KARI MARQUEZ MD Dec 27, 2018 10:32
[2018-12-27] MEDS: VANCOMYCIN HCL 1,000 MG, VIAL MATE ADAPTER 1 EACH in D5W 250 ML IV SCH (12:40)
--- NOTE | 2018-12-27 14:40 | IPN ---
DATE: 12/27/2018 Mrs. Spears is seen this morning on her bedside. She denies any new complaints. She is laying in the bed without any acute distress. She has no nausea, vomiting, fever or chills. PHYSICAL EXAMINATION: Temperature 97.4 degrees Fahrenheit, heart rate 116 per minute and respiratory rate 20 per minute. Blood pressure 132/90 mmHg and oxygen saturation 94%. Intake and output records from yesterday showed total intake 1153 and output 1150. Her head is atraumatic. Neck is supple and JVD is not abnormally elevated. Heart: Sounds are tachycardiac and irregular. Lungs: Have slightly diminished air entry but no wheezing or rales. Abdomen is soft and nontender and bowel sounds are normal. Extremities have no cyanosis or clubbing. Neurologically she seems to be grossly intact. Today's labs show WBC count 6.1, hemoglobin 7.9 and hematocrit 23.9. Platelets 212. Sodium 131, potassium 5.4, CO2 22, BUN 46 and creatinine 1.86. PROBLEMS: 1. Acute renal failure superimposed on chronic kidney disease. Kidney function is in gradually improving and we will continue to watch closely. 2. Hyperkalemia. This is new and she is not receiving any potassium supplement, ANALISA inhibitor or angiotensin receptor joe. There could be slight hemolysis in the blood. We will recheck her potassium tomorrow morning. 3. Hyponatremia. Her sodium level improved from 127 on 11 however, there is no improvement over last 24 hours. We will continue to watch closely. 4. Anemia. She does have significant anemia but no supervisor policy change clerks last 24 hours. We will consider to transfuse her if her anemia gets any worse. CBC will be checked again tomorrow morning.
[2018-12-28] MEDS: MORPHINE 4 MG/ML 1ML VIAL/SYRINGE (J2270) IV PRN ×4 (02:37→19:03)
[2018-12-28] MEDS: IPRATROPIUM 0.5MG/ALBUTEROL 2.5MG INH SOL UD 3ML (DUONEB)(J7620) NEB SCH ×7 (02:41→23:43)
[2018-12-28] MEDS: MEROPENEM INJ 500 MG in APPROPRIATE DILUENT 1 EA IV SCH ×2 (03:37→16:57)
[2018-12-28 04:00] VITALS: BP 159/74
[2018-12-28] MEDS: LEVOTHYROXINE 100MCG TABLET (0.1MG) PO SCH (05:16)
[2018-12-28] MEDS: SODIUM CHLORIDE 0.9% INJ 10 ML SYR IV SCH ×3 (05:16→21:18)
[2018-12-28 05:40] LABS: HEMATOCRIT 25.8 % (36.0-47.0); HEMOGLOBIN 8.5 g/dl (12.0-15.5); MEAN CORPUSCULAR HEMOGLOBIN 28.7 pg (27.0-33.0); MEAN CORPUSCULAR HGB CONC 32.9 g/dl (32.0-36.5); MEAN CORPUSCULAR VOLUME 87.2 fl (80.0-96.0); PLATELET COUNT, AUTOMATED 245 10^3/uL (150-450); RED BLOOD COUNT 2.96 10^6/uL (4.00-5.40); WHITE BLOOD COUNT 8.7 10^3/uL (4.0-10.0)
[2018-12-28 06:03] LABS: ALBUMIN 2.4 GM/DL (3.2-5.2); BILIRUBIN,TOTAL 0.4 MG/DL (0.2-1.0); CALCIUM LEVEL 8.4 MG/DL (8.8-10.2); CREATININE FOR GFR 1.51 MG/DL (0.55-1.30); GLOMERULAR FILTRATION RATE 35.2 (>32); POTASSIUM SERUM 5.5 MEQ/L (3.5-5.1); TOTAL PROTEIN 5.1 GM/DL (6.4-8.2)
[2018-12-28] MEDS: ADVAIR HFA 230/21MCG INHALER INH SCH ×2 (07:44→20:16)
[2018-12-28] MEDS: TIOTROPIUM INHALER/CAPSULE (SPIRIVA) INH SCH (07:44)
[2018-12-28 08:00] VITALS: BP 150/78
[2018-12-28] MEDS ORDERED: FUROSEMIDE 100 MG/10 ML VIAL (J1940) IV ONE ×2 (08:00→16:00)
[2018-12-28] MEDS ORDERED: PATIROMER SORBITEX CALCIUM 8.4 GM POWDER PACKET (VELTASSA) PO ONE (08:00)
[2018-12-28] MEDS: PANTOPRAZOLE 20 MG TAB PO SCH ×2 (08:47→21:19)
[2018-12-28] MEDS: ATORVASTATIN 20 MG TAB PO SCH (08:47)
[2018-12-28] MEDS: DOCUSATE SODIUM 100 MG CAP PO SCH ×2 (08:47→21:19)
[2018-12-28] MEDS: predniSONE 20 MG TAB PO SCH (08:47)
[2018-12-28] MEDS: FEBUXOSTAT 40 MG TABLET (ULORIC) PO SCH (08:47)
[2018-12-28] MEDS: HumaLOG INSULIN (NovoLOG) PER UNIT SC SCH ×4 (08:48→20:02)
[2018-12-28] MEDS: ASPIRIN 81 MG ENTERIC TAB PO SCH (08:48)
[2018-12-28] MEDS: HEPARIN SOD (PORCINE) 5000 UNITS/ML VIAL SC SCH ×2 (08:48→21:19)
--- NOTE | 2018-12-28 09:23 | REP ---
Portable chest x-ray: Single view. History: Sepsis. Comparison chest x-ray: December 26, 2018. Findings: A left internal jugular central venous catheter remains in place as tip in the expected location of the superior vena cava. EKG electrodes are seen. Cardiomegaly is again observed unchanged. Interstitial markings are diffusely increased. These are somewhat more prominent than on the recent prior studies. This raises a question of some interstitial edema. Minimal bibasilar plate-like atelectasis is seen although these densities have improved. Cardiomegaly is observed. The aorta is calcific and tortuous as before. Impression: Increasing interstitial markings diffusely question edema. Improved bibasilar discoid atelectasis. Electronically Signed by Leopoldo Nielson MD 12/27/2018 07:50 A
--- NOTE | 2018-12-28 09:38 | REP ---
Portable chest, 06:37 a.m., single AP upright view: Comparison is 12/27/2018. There is diffuse interstitial coarsening, not significantly changed. There are no focal infiltrates. The cardiac size appears mildly enlarged although there is magnification from portable positioning. The werner, mediastinum, skeletal structures are unremarkable. There is a left IJ central venous catheter with the tip in the superior vena cava, unchanged. Impression: No significant interval change. Electronically Signed by Tan Bruno MD 12/28/2018 07:55 A
--- NOTE | 2018-12-28 09:42 | IPN ---
DATE: 12/28/2018 Pauline is seen in progressive care unit (PCU). She was admitted with sepsis. She is on meropenem and vancomycin. She has developed cute on chronic kidney failure and is being followed by nephrology. She has decline in renal function today. She is more hyperkalemic despite not being on any medications such as ANALISA inhibitor, ARB or potassium supplements. 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 She has a percutaneous nephrostomy. She also has a history of chronic obstructive pulmonary disease (COPD), type 2 diabetes, hypertension. I never met her before but there seems to be some dementia or at least some intellectual limitations as well. PHYSICAL EXAMINATION: She is sitting up in the chair. She is only complaining about feeling cold and wants the temperature in the room increased. She denies shortness of breath. Blood pressure 150/78, pulse 100, respiratory rate 18, 90% oxygen saturation. GENERAL APPEARANCE: Frail, elderly, looks slightly confused. No jugular venous distention (JVD). LUNGS: Decreased breath sounds bilaterally. HEART: Regular rate and rhythm. ABDOMEN: Soft, nontender. EXTREMITIES: No peripheral edema. LABORATORIES: White count 8.7, hemoglobin 8.5, platelets 245. Sodium 135, potassium 5.5, BUN 43, creatinine 1.5, glucose 115. IMPRESSION: 1. Sepsis, unknown source. She is on IV antibiotics. The plan is to continue this for a total of week, which would be on 12/30/2018. 2. Acute renal failure superimposed on chronic kidney disease. Creatinine is improving, but she is hyperkalemic. Renal is following her. 3. Hyperkalemia. Lasix has been ordered, her potassium is continuing to climb. I do not see any medications that she is taking that would be contributing to this. 4. Hyponatremia. This is slowly improving as well. 5. Anemia. Her hemoglobin is stable. Hold off on transfusing. 6. Diabetes. She is on sliding scale of insulin based upon fingerstick blood sugars. 7. Hypothyroidism. Continue levothyroxine 100 mcg daily. 8. Hyperlipidemia. Continue current dose of atorvastatin 20 mg daily. 9. Gout. Continue Uloric 40 mg daily. 10. Asthma/chronic obstructive pulmonary disease (COPD). She is on Advair 230/21 two puffs twice a day, as well as DuoNeb. She is also on systemic steroids with prednisone 20 mg daily, presumably for the chronic obstructive pulmonary disease. At this point, the renal function is improving but hyperkalemia is getting progressively worse. Tentative discharge date would be 12/30/2018 at the earliest.
--- NOTE | 2018-12-28 11:40 | IPN ---
DATE OF VISIT: 12/28/2018 Mrs. Alvarado is seen this morning on her bedside. She is sitting in the chair at the time of my visit and reports feeling tired. She is also short of breath and currently using oxygen via nasal cannula. She denies any fever, chills, nausea or vomiting. PHYSICAL EXAMINATION: Temperature 97.7 degrees Fahrenheit, heart rate 106 per minute and respiratory rate 18 per minute. Blood pressure 150/78 mmHg and oxygen saturation 98% on 2 liters oxygen. Head is atraumatic. Neck is supple and without any visible jugular venous distention (JVD) while sitting upright. Lungs: Have diminished breath sounds and bibasilar rales. Heart sounds are irregular and tachycardiac. There is no pericardial friction rub. Abdomen soft and nontender and bowel sounds are normal. Extremities have no cyanosis or clubbing. Lower extremity edema is at least 2+ bilaterally. Neurologically she is awake, alert and able to answer questions. Today's labs show WBC count 8.7, hemoglobin 8.5 and hematocrit 25.8. Sodium 135, potassium 5.5, CO2 24, BUN 43 and creatinine 1.51. PROBLEMS: 1. Acute renal failure superimposed on chronic kidney disease. Kidney function is improving nicely and she has no uremic symptoms. We will recheck her renal profile tomorrow morning. 2. Congestive heart failure. Her volume status remains decompensated and she is given one dose of Lasix 60 mg this morning and another dose of 60 mg will be given this afternoon. We will try to get her in a negative fluid balance of about 2 liters today. 3. Hyperkalemia. Her potassium level is gradually worsening and she is currently not on any potassium supplement or potassium-sparing diuretic. She will be given one dose of Veltassa 8.4 grams today and we are also trying to diurese her which will help to correct her hyperkalemia. Electrolytes will be checked tomorrow morning. 4. Anemia. Her anemia is improving slightly and at this point there is no emergent indication for a transfusion. 5. Hyponatremia. Sodium level improved to 135 today and is likely to improve further with diuresis. No other intervention is indicated.
[2018-12-28 12:00] VITALS: BP 144/81
[2018-12-28] MEDS: VANCOMYCIN HCL 1,000 MG, VIAL MATE ADAPTER 1 EACH in D5W 250 ML IV SCH (12:38)
[2018-12-28] MEDS: NORCO, ANEXSIA 5/325MG TABLET (HYDROcodone/ACETAMINOPHEN) PO PRN ×2 (15:16→23:46)
--- NOTE | 2018-12-28 15:29 | NUR ---
Recommend please upgrade to thin liquids, continue level 2 solids. Addendum: 12/28/18 at [address] [facility] Amended: Links added.
[2018-12-28 16:00] VITALS: BP 122/78
[2018-12-28 20:00] VITALS: BP 138/56
[2018-12-28 23:59] VITALS: BP 147/68
[2018-12-29] MEDS: IPRATROPIUM 0.5MG/ALBUTEROL 2.5MG INH SOL UD 3ML (DUONEB)(J7620) NEB SCH ×6 (03:56→23:39)
[2018-12-29 04:00] VITALS: BP 154/69
[2018-12-29] MEDS: MEROPENEM INJ 500 MG in APPROPRIATE DILUENT 1 EA IV SCH ×2 (04:00→15:32)
[2018-12-29] MEDS: NORCO, ANEXSIA 5/325MG TABLET (HYDROcodone/ACETAMINOPHEN) PO PRN ×4 (04:01→23:57)
[2018-12-29] MEDS: SODIUM CHLORIDE 0.9% INJ 10 ML SYR IV SCH ×3 (04:18→20:51)
[2018-12-29 04:23] LABS: HEMATOCRIT 24.9 % (36.0-47.0); HEMOGLOBIN 8.1 g/dl (12.0-15.5); MEAN CORPUSCULAR HEMOGLOBIN 28.5 pg (27.0-33.0); MEAN CORPUSCULAR HGB CONC 32.5 g/dl (32.0-36.5); MEAN CORPUSCULAR VOLUME 87.7 fl (80.0-96.0); PLATELET COUNT, AUTOMATED 254 10^3/uL (150-450); RED BLOOD COUNT 2.84 10^6/uL (4.00-5.40); WHITE BLOOD COUNT 6.9 10^3/uL (4.0-10.0)
[2018-12-29 04:43] LABS: CALCIUM LEVEL 8.3 MG/DL (8.8-10.2); CREATININE FOR GFR 1.28 MG/DL (0.55-1.30); GLOMERULAR FILTRATION RATE 42.6 (>32)
[2018-12-29] MEDS: LEVOTHYROXINE 100MCG TABLET (0.1MG) PO SCH (06:01)
[2018-12-29] MEDS: HumaLOG INSULIN (NovoLOG) PER UNIT SC SCH ×4 (07:40→20:51)
[2018-12-29] MEDS: FEBUXOSTAT 40 MG TABLET (ULORIC) PO SCH (07:40)
[2018-12-29] MEDS: PANTOPRAZOLE 20 MG TAB PO SCH ×2 (07:40→20:52)
[2018-12-29] MEDS: HEPARIN SOD (PORCINE) 5000 UNITS/ML VIAL SC SCH ×2 (07:40→20:52)
[2018-12-29] MEDS: DOCUSATE SODIUM 100 MG CAP PO SCH ×2 (07:41→20:52)
[2018-12-29] MEDS: ASPIRIN 81 MG ENTERIC TAB PO SCH (07:41)
[2018-12-29] MEDS: predniSONE 20 MG TAB PO SCH (07:41)
[2018-12-29] MEDS: ATORVASTATIN 20 MG TAB PO SCH (07:41)
--- NOTE | 2018-12-29 07:55 | REP ---
Portable chest, 07:39 a.m., single AP upright view: Comparison is 12/29/2019 19. Diffuse interstitial coarsening is again identified, unchanged. There is atelectasis in the lung bases bilaterally as an interval change. Cardiac size is upper normal, unchanged. The left IJ central venous catheter tip is in satisfactory position, unchanged. Impression: Bibasilar atelectasis as an interval change. Small bilateral pleural effusions as an interval change. Electronically Signed by Tan Bruno MD 12/29/2018 07:46 A
[2018-12-29 08:00] VITALS: BP 150/72
[2018-12-29] MEDS: TIOTROPIUM INHALER/CAPSULE (SPIRIVA) INH SCH (09:05)
[2018-12-29] MEDS: ADVAIR HFA 230/21MCG INHALER INH SCH ×2 (09:05→20:46)
[2018-12-29] MEDS ORDERED: FUROSEMIDE 100 MG/10 ML VIAL (J1940) IV ONE (11:45)
--- NOTE | 2018-12-29 11:59 | IPN ---
DATE OF VISIT: 12/29/2018 Mrs. Alvarado is seen this morning on her bedside. She was sleeping and I woke her up. She still feeling weak and tired. Her dyspnea improved with the diuresis yesterday. She still has some leg edema. She denies any nausea or vomiting. PHYSICAL EXAMINATION: Temperature 98.5 degrees Fahrenheit, heart rate 115 per minute and respiratory rate 20 per minute. Blood pressure 150/72 mmHg and oxygen saturation 99% on 2 liters oxygen. Intake and output records from yesterday show a negative fluid balance of 1920 with total intake of 480 and output 2400. I am not sure if her intake is recorded accurately. Her weight is down by 0.9 kg in the last 24 hours. Head is atraumatic. Neck is supple and JVD is still seems to be elevated. Heart sounds are irregular and tachycardic. Lungs with bibasilar rales. Abdomen soft and nontender and bowel sounds are normal. Extremities have no cyanosis or clubbing. Lower extremity edema is still 2+. Today's labs show WBC count 6.9, hemoglobin 8.1 and hematocrit 24.9. Platelets 254. Sodium 134, potassium 5.0, CO2 26, BUN 36 and creatinine 1.28. PROBLEMS: 1. Acute renal failure superimposed on chronic kidney disease. Kidney function is improving nicely and she had a good urine output yesterday. We will recheck her renal profile tomorrow morning. 2. Congestive heart failure. Volume status is still somewhat decompensated. Giving her Lasix 80 mg intravenously one dose today and will try to get a negative fluid balance of about 1 liter. 3. Hyperkalemia. Potassium level has improved to 5.0. We will continue our efforts to diurese her, which is likely to help with further improvement in her potassium level. 4. Anemia. Her anemia is significant and I would recommend considering to transfuse her. She is not likely to improve without transfusion.
[2018-12-29 12:00] VITALS: BP 143/77
[2018-12-29] MEDS: VANCOMYCIN HCL 1,000 MG, VIAL MATE ADAPTER 1 EACH in D5W 250 ML IV SCH (12:06)
--- NOTE | 2018-12-29 13:37 | IPNPDOC ---
Date Seen The patient was seen on 12/29/18. Progress Note SUBJECTIVE: She is examined in her room sitting up in a chair eating breakfast and watching TV. She is very hard of hearing. She states it is difficult to keep her oxygen nasal cannula on and it is very uncomfortable for her. When asked how her breathing is she states it sometimes goes, sometimes bad. She is no longer coughing and she is able to take deeper breaths without any chest pain, which is improved from admission. She is eating well, although she requests assistance with meals. She has no other complaints at this time. OBJECTIVE PHYSICAL EXAMINATION: VITAL SIGNS: Please see below. GENERAL: Sitting up in the bedside chair, no acute distress, calm and cooperative HEENT: Moist mucous membranes, extraocular movements intact, no thyromegaly CARDIOVASCULAR: Somewhat tachycardic but sinus rhythm, no murmurs, rubs or gallops RESPIRATORY: Diminished breath sounds diffusely but no adventitious breath sounds appreciated ABDOMINAL: Nontender to palpation with + bowel sounds, no masses/organomegaly EXTREMITIES: trace edema in lower extremities bilaterally NEUROLOGICAL: no focal deficits appreciated PSYCHOLOGICAL: somewhat anxious mood, normal affect LABORATORY DATA, IMAGING STUDIES, MICROBIOLOGY: Please see below. Echocardiogram: none on file DVT prophylaxis ordered?: [facility] ASSESSMENT AND PLAN: This is a 83 YO F with history of COPD, DM2, CKD and atrophic kidney s/p nephrostomy tube who presented with fatigue and weakness found to have pulmonary vascular congestion and possible pneumonia. She was recently moved from the ICU s/p pressor treatment and is now in the PCU und ergoing close observation. PROBLEMS: 1. Septic shock s/p pressors: -Continue Meropenem and Vancomycin until 12/30/18 -BP WNL and HR somewhat tachycardic, although this may be 2/2 use of albuterol/steroids and her anxiety 2. CHF: -Patient does still seem a bit fluid overloaded on exam, although this has improved from prior hospital days -Nephrology on board. Appreciate recommendations regarding diuresis at this time. -Lasix 80mg IV given today for further diuresis 3. Acute on chronic kidney disease and ARF: Cr improving. 1.28 today from 1.5 yesterday -Nephrology on board 4. COPD: Patient continues on 2LNC -Continue Advair, DuoNebs -Continue prednisone daily 5. Anemia: normocytic, 2/2 chronic disease -Hgb 8.1, and this has been her baseline throughout this hospitalization. She may benefit from transfusion once volume status has been optimized 6. Hyponatremia: -Sodium 134 from 135 yesterday -Will continue to monitor 7. Hyperkalemia: -Improving. K 5.0 today from 5.5 yesterday -All other electrolytes WNL. Will continue to monitor 8. Gout: -Continue Febuxostat 9. HLD: -Continue Atorvastatin 10. Hypothyroidism: -Continue levothyroxine DISPOSITION: pending clinical improvement VS, I&O, 24H, Fishbone Vital Signs/I&O Vital Signs Date Time Temp Pulse Resp B/P (MAP) Pulse Ox O2 Delivery O2 Flow Rate FiO2 12/29/18 08:00 98.5 115 20 150/72 (98) 99 2.0 12/26/18 05:45 35 I&O- Last 24 Hours up to 6 AM 12/29/18 06:00 Intake Total 530 ml Output Total 2425 ml Balance -1895 ml Laboratory Data 24H LABS Laboratory Tests 2 12/28/18 12:24: Bedside Glucose (Misc Panel) 230H 12/28/18 16:49: Bedside Glucose (Misc Panel) 220H 12/28/18 20:01: Bedside Glucose (Misc Panel) 163H 12/29/18 04:04: Nucleated Red Blood Cells % (auto) 0.0, Anion Gap 5L, Glomerular Filtration Rate 42.6, Blood Urea Nitrogen 36H, Creatinine 1.28, Sodium Level 134L, Potassium Level 5.0, Chloride Level 103, Carbon Dioxide Level 26, Calcium Level 8.3L CBC/BMP Laboratory Tests 12/29/18 04:04 Red Blood Count 2.84 L, Mean Corpuscular Volume 87.7, Mean Corpuscular H emoglobin 28.5, Mean Corpuscular Hemoglobin Concent 32.5, Red Cell Distribution Width 15.1 H, Calcium Level 8.3 L Microbiology Microbiology 12/23/18 Blood Culture - Final, Complete NO GROWTH AFTER 5 DAYS 12/23/18 Blood Culture - Final, Complete NO GROWTH AFTER 5 DAYS 12/23/18 Urine Culture - Final, Complete GME ATTESTATION GME ATTESTATION My faculty preceptor for this patient encounter was physically present during the encounter and was fully available. All aspects of the patient interview, examination, medical decision making process, and medical care plan development were reviewed and approved by the faculty preceptor. The faculty preceptor is aware and concurs with the plan as stated in the body of this note and will attest to such by his/her cosignature. VALERIE YEE MD Dec 29, 2018 11:44
[2018-12-29 16:00] VITALS: BP 145/81
[2018-12-29] MEDS: METOPROLOL SUCC *XL* 12.5MG PER 1/2 TAB (TopROL *XL*) PO SCH (18:14)
[2018-12-29 20:00] VITALS: BP 141/71
[2018-12-29 23:59] VITALS: BP 166/76
[2018-12-30 04:00] VITALS: BP 146/74
[2018-12-30] MEDS: IPRATROPIUM 0.5MG/ALBUTEROL 2.5MG INH SOL UD 3ML (DUONEB)(J7620) NEB SCH ×5 (04:00→20:00)
[2018-12-30] MEDS: MEROPENEM INJ 500 MG in APPROPRIATE DILUENT 1 EA IV SCH (04:04)
[2018-12-30] MEDS: LEVOTHYROXINE 100MCG TABLET (0.1MG) PO SCH (05:30)
[2018-12-30] MEDS: SODIUM CHLORIDE 0.9% INJ 10 ML SYR IV SCH ×3 (05:30→21:41)
[2018-12-30 05:48] LABS: HEMATOCRIT 26.1 % (36.0-47.0); HEMOGLOBIN 8.5 g/dl (12.0-15.5); MEAN CORPUSCULAR HEMOGLOBIN 28.3 pg (27.0-33.0); MEAN CORPUSCULAR HGB CONC 32.6 g/dl (32.0-36.5); PLATELET COUNT, AUTOMATED 290 10^3/uL (150-450); WHITE BLOOD COUNT 7.2 10^3/uL (4.0-10.0)
[2018-12-30 06:14] LABS: CALCIUM LEVEL 8.3 MG/DL (8.8-10.2); CREATININE FOR GFR 1.08 MG/DL (0.55-1.30); GLOMERULAR FILTRATION RATE 51.8 (>32); POTASSIUM SERUM 4.9 MEQ/L (3.5-5.1)
[2018-12-30] MEDS: NORCO, ANEXSIA 5/325MG TABLET (HYDROcodone/ACETAMINOPHEN) PO PRN ×3 (06:23→19:25)
--- NOTE | 2018-12-30 07:43 | REP ---
Portable chest, 06:53 a.m., single AP semi upright view: The bibasilar atelectasis and small bilateral pleural effusions are unchanged. Cardiac size is upper normal, unchanged. The left IJ central venous catheter tip is in the superior vena cava in satisfactory position, unchanged. There are orthopedic screws in the right humeral head, unchanged. Impression: There is no interval change. Electronically Signed by Tan Bruno MD 12/30/2018 07:35 A
[2018-12-30] MEDS: FEBUXOSTAT 40 MG TABLET (ULORIC) PO SCH (07:53)
[2018-12-30] MEDS: DOCUSATE SODIUM 100 MG CAP PO SCH ×2 (07:55→21:41)
[2018-12-30] MEDS: PANTOPRAZOLE 20 MG TAB PO SCH ×2 (07:55→21:41)
[2018-12-30] MEDS: METOPROLOL SUCC *XL* 12.5MG PER 1/2 TAB (TopROL *XL*) PO SCH (07:55)
[2018-12-30] MEDS: ATORVASTATIN 20 MG TAB PO SCH (07:55)
[2018-12-30] MEDS: predniSONE 20 MG TAB PO SCH (07:56)
[2018-12-30] MEDS: ASPIRIN 81 MG ENTERIC TAB PO SCH (07:56)
[2018-12-30] MEDS: HEPARIN SOD (PORCINE) 5000 UNITS/ML VIAL SC SCH ×2 (07:56→21:42)
[2018-12-30] MEDS: HumaLOG INSULIN (NovoLOG) PER UNIT SC SCH ×4 (07:57→21:00)
[2018-12-30 08:00] VITALS: BP 140/62
[2018-12-30] MEDS: PARoxetine 10MG TABLET PO SCH (10:21)
[2018-12-30] MEDS: TIOTROPIUM INHALER/CAPSULE (SPIRIVA) INH SCH (10:26)
[2018-12-30] MEDS: ADVAIR HFA 230/21MCG INHALER INH SCH ×2 (10:26→21:29)
--- NOTE | 2018-12-30 10:34 | IPNPDOC ---
Date Seen The patient was seen on 12/30/18. Progress Note SUBJECTIVE: Patient is observed eating breakfast this morning sitting up in her bedside chair with her legs elevated. She states she is feeling better but complains that her feet are in pain. She describes as a sharp pain and heaviness of her legs. Otherwise, her breathing has subjectively improved and she was able to work with physical therapy yesterday. The patient continues to get somewhat tachycardic (147) with ambulation. Her son was contacted this morning in order to offer verbal consent to transfuse 2U blood for her this morning. OBJECTIVE PHYSICAL EXAMINATION: VITAL SIGNS: Please see below. GENERAL: Sitting up in the bedside chair, no acute distress, calm and cooperative HEENT: Moist mucous membranes, extraocular movements intact, no thyromegaly CARDIOVASCULAR: Somewhat tachycardic but sinus rhythm, no murmurs, rubs or gallops RESPIRATORY: Diminished breath sounds diffusely with some crackles appreciated in lower and middle lobes bilaterally. ABDOMINAL: Nontender to palpation with + bowel sounds, no masses/organomegaly EXTREMITIES: trace edema in lower extremities bilaterally NEUROLOGICAL: no focal deficits appreciated PSYCHOLOGICAL: somewhat anxious mood, normal affect LABORATORY DATA, IMAGING STUDIES, MICROBIOLOGY: Please see below. Echocardiogram: none on file DVT prophylaxis ordered?: [facility] ASSESSMENT AND PLAN: This is a 83 YO F with history of COPD, DM2, CKD and atrophic kidney s/p nephrostomy tube who presented with fatigue and weakness found to have pulmonary vascular congestion and possible pneumonia. She was recently moved from the ICU s/p pressor treatment and is now in the PCU undergoing close observation. PROBLEMS: 1. Septic shock s/p pressors: -s/p 8 days Meropenem, 4 days Vancomycin -BP WNL and HR somewhat tachycardic, although this may be 2/2 use of albuterol/steroids and her anxiety. Restarted home Paxil 2. CHF: -Patient does still somewhat fluid overloaded on exam, although this has improved. She has some crackles bilaterally and peripheral edema. Given that she will be transfused 2U pRBCs today, will be cautious of fluid overload and diurese as necessary -Nephrology on board. Appreciate recommendations regarding diuresis at this time. -Lasix as needed for diuresis 3. Acute on chronic kidney disease and ARF: Cr improving. 1.08 today from 1.28 yesterday -Nephrology on board 4. COPD: Patient continues on 2LNC -Continue Advair, DuoNebs -Continue prednisone daily 5. Anemia: normocytic, 2/2 chronic disease -Hgb 8.5, and this has been her baseline throughout this hospitalization. -Plan to transfuse 2U pRBCs today. Her son was verbally consented 6. Hyponatremia: -Sodium 134 today. Stable -Will continue to monitor 7. Hyperkalemia: -Improving. K 4.9 today -All other electrolytes WNL. Will continue to monitor 8. Gout: -Continue Febuxostat 9. HLD: -Continue Atorvastatin 10. Hypothyroidism: -Continue levothyroxine 11. Mood disorder: -restarted home Paxil DISPOSITION: pending clinical improvement VS, I&O, 24H, Fishbone Vital Signs/I&O Vital Signs Date Time Temp Pulse Resp B/P (MAP) Pulse Ox O2 Delivery O2 Flow Rate FiO2 12/30/18 08:00 98.1 111 19 140/62 (88) 95 2.0 12/26/18 05:45 35 I&O- Last 24 Hours up to 6 AM0 12/30/18 06:00 Intake Total 590 ml Output Total 2375 ml Balance -1785 ml Laboratory Data 24H LABS Laboratory Tests 2 12/29/18 12:12: Bedside Glucose (Misc Panel) 283H 12/29/18 17:29: Bedside Glucose (Misc Panel) 237H 12/29/18 20:43: Bedside Glucose (Misc Panel) 98 12/30/18 05:34: Nucleated Red Blood Cells % (auto) 0.0, Anion Gap 6L, Glomerular Filtration Rate 51.8, Blood Urea Nitrogen 31H, Creatinine 1.08, Sodium Level 134L, Potassium Level 4.9, Chloride Level 102, Carbon Dioxide Level 26, Calcium Level 8.3L CBC/BMP Laboratory Tests 12/30/18 05:34 Red Blood Count 3.00 L, Mean Corpuscular Volume 87.0, Mean Corpuscular Hemoglobin 28.3, Mean Corpuscular Hemoglobin Concent 32.6, Red Cell Distribution Width 15.0 H, Calcium Level 8.3 L Microbiology Microbiology 12/23/18 Blood Culture - Final, Complete NO GROWTH AFTER 5 DAYS 12/23/18 Blood Culture - Final, Complete NO GROWTH AFTER 5 DAYS 12/29/18 Respiratory Virus Panel (PCR) ([facility]ANGEL) - Final, Complete 12/29/18 Gram Stain, Received Pending 12/29/18 Sputum Culture, Received Pending 12/29/18 MRSA Screen, Received Pending 12/23/18 Urine Culture - Final, Complete GME ATTESTATION GME ATTESTATION My faculty preceptor for this patient encounter was physically present during the encounter and was fully available. All aspects of the patient interview, ex amination, medical decision making process, and medical care plan development were reviewed and approved by the faculty preceptor. The faculty preceptor is aware and concurs with the plan as stated in the body of this note and will attest to such by his/her cosignature. VALERIE YEE MD Dec 30, 2018 10:34
--- NOTE | 2018-12-30 11:28 | NUR ---
Recommend please upgrade to level 3 Mechanical soft (NDD) diet and continue regular thin liquids. Addendum: 12/30/18 at 1129 by [facility] SP Amended: Links added.
[2018-12-30 12:00] VITALS: BP 137/72
[2018-12-30] MEDS ORDERED: FUROSEMIDE 40 MG/4 ML VIAL (J1940) IV ONE (14:15)
[2018-12-30] MEDS ORDERED: NORCO, ANEXSIA 5/325MG TABLET (HYDROcodone/ACETAMINOPHEN) PO ONE (14:15)
[2018-12-30 16:00] VITALS: BP 139/90
--- NOTE | 2018-12-30 19:19 | IPN ---
DATE: 12/30/2018 Mrs. Alvarado is seen this morning on her bedside. She is sitting in the chair at the time of my visit. She is feeling better and her weakness is slightly improved. She denies any nausea, vomiting, dyspnea or chest pain. PHYSICAL EXAMINATION Temperature 98 degrees Fahrenheit, heart rate 109 per minute and respiratory rate 18 per minute. Blood pressure 137/72 mmHg and oxygen saturation 97%. Head is atraumatic. Neck is supple and JVD is difficult to be assessed sitting upright. Lungs with slightly diminished breath sounds and heart sounds are tachycardiac and irregular in rhythm. Abdomen: Soft and nontender and bowel sounds are present. Extremities: Have no cyanosis or clubbing. Lower extremity edema is still about 1+. Intake and output records from yesterday are negative by about 1560 mL. Today's labs show sodium 134, potassium 4.9, CO2 26, BUN 31 and creatinine 1.08. Glucose 122 and calcium 8.3. Hemoglobin is 8.5 and hematocrit 26.1. PROBLEMS: 1. Acute renal failure superimposed on chronic kidney disease. She probably has mild chronic kidney disease, but acute renal failure has resolved almost completely. 2, Congestive heart failure. Volume status has improved significantly with diuresis over last few days. She has been given 40 mg Lasix again today. I feel that is appropriate as we do still want to have mild negative fluid balance. 3. Anemia. I will defer to hospitalist service to see if they would like to transfuse her with 1 unit of packed RBCs. Her anemia is slightly better with diuresis, but not optimum. I think one unit transfusion would optimize her condition for discharge. 4. Hyponatremia. Her sodium level has improved and stabilized. Diuresis is helping. 5. Hyperkalemia. Potassium level has also improved and now it is high normal. She is not receiving any potassium-sparing diuretic or potassium supplement. She is not a suitable candidate for ANALISA inhibitor or angiotensin receptor joe.
[2018-12-30 20:00] VITALS: BP 146/84
[2018-12-30 20:28] LABS: HEMATOCRIT 32.7 % (36.0-47.0)
[2018-12-30 23:59] VITALS: BP 150/78
[2018-12-31] MEDS: NORCO, ANEXSIA 5/325MG TABLET (HYDROcodone/ACETAMINOPHEN) PO PRN ×5 (02:49→22:58)
[2018-12-31 04:00] VITALS: BP 142/75
[2018-12-31] MEDS: IPRATROPIUM 0.5MG/ALBUTEROL 2.5MG INH SOL UD 3ML (DUONEB)(J7620) NEB SCH ×6 (04:00→20:00)
[2018-12-31] MEDS: SODIUM CHLORIDE 0.9% INJ 10 ML SYR IV SCH ×3 (06:00→22:00)
[2018-12-31] MEDS: LEVOTHYROXINE 100MCG TABLET (0.1MG) PO SCH (06:00)
[2018-12-31 06:25] LABS: HEMATOCRIT 31.5 % (36.0-47.0); HEMOGLOBIN 10.5 g/dl (12.0-15.5); MEAN CORPUSCULAR HEMOGLOBIN 28.6 pg (27.0-33.0); MEAN CORPUSCULAR HGB CONC 33.3 g/dl (32.0-36.5); MEAN CORPUSCULAR VOLUME 85.8 fl (80.0-96.0); PLATELET COUNT, AUTOMATED 275 10^3/uL (150-450); RED BLOOD COUNT 3.67 10^6/uL (4.00-5.40); WHITE BLOOD COUNT 7.5 10^3/uL (4.0-10.0)
[2018-12-31 06:37] LABS: CALCIUM LEVEL 8.1 MG/DL (8.8-10.2); CREATININE FOR GFR 1.01 MG/DL (0.55-1.30); POTASSIUM SERUM 4.6 MEQ/L (3.5-5.1)
--- NOTE | 2018-12-31 07:45 | REP ---
Portable chest, 06:44 a.m., single AP view, patient sitting: Comparison is 12/30/2018. The bibasilar infiltrates have improved. The small bilateral pleural effusions have slightly improved. Lung madrigal otherwise clear. Cardiac size is minimally enlarged, unchanged. The left IJ central venous catheter remains in satisfactory position, unchanged. Impression: There has been slight improvement in the bibasilar infiltrates and bilateral pleural effusions. Electronically Signed by Tan Bruon MD 12/31/2018 07:38 A
[2018-12-31] MEDS: ADVAIR HFA 230/21MCG INHALER INH SCH ×2 (07:56→21:00)
[2018-12-31] MEDS: TIOTROPIUM INHALER/CAPSULE (SPIRIVA) INH SCH (07:56)
[2018-12-31] MEDS: HumaLOG INSULIN (NovoLOG) PER UNIT SC SCH ×4 (07:59→21:00)
[2018-12-31] MEDS: ASPIRIN 81 MG ENTERIC TAB PO SCH (07:59)
[2018-12-31] MEDS: FEBUXOSTAT 40 MG TABLET (ULORIC) PO SCH (07:59)
[2018-12-31 08:00] VITALS: BP 142/82
[2018-12-31] MEDS: DOCUSATE SODIUM 100 MG CAP PO SCH ×2 (08:00→22:38)
[2018-12-31] MEDS: PANTOPRAZOLE 20 MG TAB PO SCH ×2 (08:00→22:38)
[2018-12-31] MEDS: PARoxetine 10MG TABLET PO SCH (08:00)
[2018-12-31] MEDS: ATORVASTATIN 20 MG TAB PO SCH (08:00)
[2018-12-31] MEDS: METOPROLOL SUCC *XL* 12.5MG PER 1/2 TAB (TopROL *XL*) PO SCH (08:01)
[2018-12-31] MEDS: HEPARIN SOD (PORCINE) 5000 UNITS/ML VIAL SC SCH ×2 (08:01→22:38)
--- NOTE | 2018-12-31 10:26 | IPNPDOC ---
Date Seen The patient was seen on 12/31/18. Progress Note SUBJECTIVE: Patient is observed sitting in bedside chair eating breakfast this morning. She is no longer requiring supplemental oxygen and states that her breathing feels well. Overall she feels much better than she did when she was admitted. She was transfused 2U pRBCs yesterday without issue. She is concerned about going home and having enough support to take care of herself, as her son is disabled and unable to do so. The chronic pain in her feet is managed well. Otherwise, she has no complaints. OBJECTIVE PHYSICAL EXAMINATION: VITAL SIGNS: Please see below. GENERAL: Sitting up in the bedside chair, no acute distress, calm and cooperative HEENT: Moist mucous membranes, extraocular movements intact, no thyromegaly CARDIOVASCULAR: Somewhat tachycardic but sinus rhythm, no murmurs, rubs or gallops RESPIRATORY: Diminished breath sounds diffusely with some crackles appreciated in lower and middle lobes bilaterally. ABDOMINAL: Nontender to palpation with + bowel sounds, no masses/organomegaly EXTREMITIES: trace edema in lower extremities bilaterally NEUROLOGICAL: no focal deficits appreciated PSYCHOLOGICAL: somewhat anxious mood, normal affect LABORATORY DATA, IMAGING STUDIES, MICROBIOLOGY: Please see below. Echocardiogram: none on file DVT prophylaxis ordered?: [facility] ASSESSMENT AND PLAN: This is a 83 YO F with history of COPD, DM2, CKD and atrophic kidney s/p nephrostomy tube who presented with fatigue and weakness found to have pulmonary vascular congestion and possible pneumonia. She was recently moved from the ICU s/p pressor treatment and is now in the PCU undergo ing close observation. PROBLEMS: 1. History of Septic shock s/p pressors: WBC stable at 7.5 today -s/p 8 days Meropenem, 4 days Vancomycin -BP WNL and VSS 2. CHF: -Fluid status much improved, although still some trace LE edema bilaterally. S/p transfusion 2U pRBCs yesterday + lasix 40mg IV for diuresis -Nephrology on board. Appreciate recommendations regarding diuresis at this time. -Lasix as needed for diuresis 3. Acute on chronic kidney disease and ARF: Cr improving. 1.01 today -Nephrology on board 4. COPD: Patient continues on 2LNC -Continue Advair, DuoNebs -Continue prednisone daily 5. Anemia: normocytic, 2/2 chronic disease -s/p 2U pRBCs. Hgb 10.5 today 6. Hyponatremia: -Sodium 135 today. Stable -Will continue to monitor 7. Hyperkalemia: -Appears to have resolved. K 4.6 today -All other electrolytes WNL. Will continue to monitor 8. Gout: -Continue Febuxostat 9. HLD: -Continue Atorvastatin 10. Hypothyroidism: -Continue levothyroxine 11. Mood disorder: -restarted home Paxil DISPOSITION: pending clinical improvement VS, I&O, 24H, Fishbone Vital Signs/I&O Vital Signs Date Time Temp Pulse Resp B/P (MAP) Pulse Ox O2 Delivery O2 Flow Rate FiO2 12/31/18 08:30 18 12/31/18 08:01 103 142/75 12/31/18 08:00 98.0 92 12/30/18 16:00 1.0 12/26/18 05:45 35 I&O- Last 24 Hours up to 6 AM 12/31/18 06:00 Intake Total 1150 ml Output Total 2125 ml Balance -975 ml Laboratory Data 24H LABS Laboratory Tests 2 12/30/18 11:47: Bedside Glucose (Misc Panel) 263H 12/30/18 17:27: Bedside Glucose (Misc Panel) 254H 12/30/18 20:04: Bedside Glucose (Misc Panel) 161H 12/31/18 06:01: Nucleated Red Blood Cells % (auto) 0.0, Anion Gap 7L, Glomerular Filtration Rate 56.0, Blood Urea Nitrogen 27H, Creatinine 1.01, Sodium Level 135L, Potassium Level 4.6, Chloride Level 101, Carbon Dioxide Level 27, Calcium Level 8.1L CBC/BMP Laboratory Tests 12/30/18 20:10 12/31/18 06:01 Red Blood Count 3.67 L, Mean Corpuscular Volume 85.8, Mean Corpuscular Hemoglobin 28.6, Mean Corpuscular Hemoglobin Concent 33.3, Red Cell Distribution Width 14.9 H, Calcium Level 8.1 L Microbiology Microbiology 12/23/18 Blood Culture - Final, Complete NO GROWTH AFTER 5 DAYS 12/23/18 Blood Culture - Final, Complete NO GROWTH AFTER 5 DAYS 12/29/18 Respiratory Virus Panel (PCR) ([facility]) - Final, Complete 12/29/18 Gram Stain - Final, Resulted 12/29/18 Sputum Culture, Resulted Pending 12/29/18 MRSA Screen, Received Pending 12/23/18 Urine Culture - Final, Complete GME ATTESTATION GME ATTESTATION My faculty preceptor for this patient encounter was physically present during the encounter and was fully available. All aspects of the patient interview, examination, medical decision making process, and medical care plan development were reviewed and approved by the faculty preceptor. The faculty preceptor is aware and concurs with the plan as stated in the body of this note and will attest to such by his/her cosignature. VALERIE YEE MD Dec 31, 2018 10:26
--- NOTE | 2018-12-31 11:06 | IPN ---
DATE: 12/31/2018 Mrs. Alvarado is seen this morning on her bedside. She is sitting in the chair and is feeling better. She is hoping to go home tomorrow. Her dyspnea and leg edema has improved significantly with diuresis over the last few days. She also received a blood transfusion yesterday for due to anemia. She denies any nausea or vomiting. PHYSICAL EXAMINATION: Temperature 98.0 degrees Fahrenheit, heart rate 112 per minute and respiratory rate 20 per minute. Blood pressure 142/75 mmHg and oxygen saturation 92%. Intake and output records from yesterday showed total intake 1200 and output 2225 with a negative fluid balance of 1025 mL. Her weight is down to 68.3 kg. Lungs have slightly diminished breath sounds. Heart sounds are irregular and tachycardiac. Neck is supple and jugular venous distention (JVD) is not elevated. Abdomen soft and benign and bowel sounds are normal. Extremities have no cyanosis or clubbing. Lower extremity edema has improved significantly. Today's labs show WBC count 7.5, hemoglobin 10.5 and hematocrit 31.5. Platelets 275. Sodium 135, potassium 4.6, CO2 27, BUN 27 and creatinine 1.0. Glucose 129 and calcium 8.1. PROBLEMS: 1. Acute renal failure superimposed on chronic kidney disease. Her kidney function has improved and this is most likely about her baseline function. Her electrolytes are stable. 2. Congestive heart failure. Volume status is also improved significantly with negative fluid balance for the last few days. She should remain on a maintenance dose of oral diuretic. 3. Hyponatremia. Sodium level has improved and almost normal now. Most likely her hyponatremia was related to congestive heart failure. 4. Anemia. Her anemia has also improved with transfusion. DISPOSITION: From a renal standpoint, the patient is doing very well now and I am signing off her case.
[2018-12-31 12:00] VITALS: BP 158/80
[2018-12-31 18:49] VITALS: BP 158/67
[2018-12-31 22:00] VITALS: BP 142/72
[2019-01-01] MEDS: IPRATROPIUM 0.5MG/ALBUTEROL 2.5MG INH SOL UD 3ML (DUONEB)(J7620) NEB SCH ×7 (04:00→23:32)
[2019-01-01] MEDS: NORCO, ANEXSIA 5/325MG TABLET (HYDROcodone/ACETAMINOPHEN) PO PRN ×3 (04:24→20:31)
[2019-01-01] MEDS: SODIUM CHLORIDE 0.9% INJ 10 ML SYR IV SCH ×3 (05:29→22:00)
[2019-01-01] MEDS: LEVOTHYROXINE 100MCG TABLET (0.1MG) PO SCH (05:29)
[2019-01-01 05:40] LABS: HEMATOCRIT 31.4 % (36.0-47.0); HEMOGLOBIN 10.2 g/dl (12.0-15.5); MEAN CORPUSCULAR HEMOGLOBIN 28.1 pg (27.0-33.0); MEAN CORPUSCULAR HGB CONC 32.5 g/dl (32.0-36.5); MEAN CORPUSCULAR VOLUME 86.5 fl (80.0-96.0); PLATELET COUNT, AUTOMATED 261 10^3/uL (150-450); RED BLOOD COUNT 3.63 10^6/uL (4.00-5.40); WHITE BLOOD COUNT 6.9 10^3/uL (4.0-10.0)
[2019-01-01 06:00] VITALS: BP 144/75
[2019-01-01 06:00] LABS: CALCIUM LEVEL 7.7 MG/DL (8.8-10.2); CREATININE FOR GFR 0.98 MG/DL (0.55-1.30); POTASSIUM SERUM 4.1 MEQ/L (3.5-5.1)
[2019-01-01] MEDS: ADVAIR HFA 230/21MCG INHALER INH SCH ×2 (07:29→21:44)
[2019-01-01] MEDS: TIOTROPIUM INHALER/CAPSULE (SPIRIVA) INH SCH (07:29)
[2019-01-01] MEDS: HumaLOG INSULIN (NovoLOG) PER UNIT SC SCH ×4 (08:15→21:00)
[2019-01-01] MEDS: PANTOPRAZOLE 20 MG TAB PO SCH ×2 (08:16→20:32)
[2019-01-01] MEDS: FEBUXOSTAT 40 MG TABLET (ULORIC) PO SCH (08:16)
[2019-01-01] MEDS: HEPARIN SOD (PORCINE) 5000 UNITS/ML VIAL SC SCH ×2 (08:16→20:30)
[2019-01-01] MEDS: ATORVASTATIN 20 MG TAB PO SCH (08:16)
[2019-01-01] MEDS: ASPIRIN 81 MG ENTERIC TAB PO SCH (08:16)
[2019-01-01] MEDS: DOCUSATE SODIUM 100 MG CAP PO SCH ×2 (08:16→20:31)
[2019-01-01] MEDS: METOPROLOL SUCC *XL* 12.5MG PER 1/2 TAB (TopROL *XL*) PO SCH (08:16)
[2019-01-01] MEDS: PARoxetine 10MG TABLET PO SCH (08:16)
[2019-01-01 14:00] VITALS: BP 142/72
--- NOTE | 2019-01-01 16:15 | IPNPDOC ---
Date Seen The patient was seen on 01/01/19. Progress Note SUBJECTIVE: Patient states she really wants to go home this morning. She is feeling well, without any shortness of breath, palpitations, or leg swelling. She denies n/v/d and is eating and drinking well. She unfortunately did not pass physical therapy clearance today. Her family is concerned about her limitations at home, but the patient is reportedly not receptive to further PT sessions. OBJECTIVE PHYSICAL EXAMINATION: VITAL SIGNS: Please see below. GENERAL: Sitting up in the bedside chair, no acute distress, calm and cooperative HEENT: Moist mucous membranes, extraocular movements intact, no thyromegaly CARDIOVASCULAR: Somewhat tachycardic but sinus rhythm, no murmurs, rubs or roper ps RESPIRATORY: Diminished breath sounds diffusely with some crackles appreciated in lower and middle lobes bilaterally. ABDOMINAL: Nontender to palpation with + bowel sounds, no masses/organomegaly EXTREMITIES: trace edema in lower extremities bilaterally NEUROLOGICAL: no focal deficits appreciated PSYCHOLOGICAL: somewhat anxious mood, normal affect LABORATORY DATA, IMAGING STUDIES, MICROBIOLOGY: Please see below. Echocardiogram: none on file DVT prophylaxis ordered?: [facility] ASSESSMENT AND PLAN: This is a 83 YO F with history of COPD, DM2, CKD and atrophic kidney s/p nephrostomy tube who presented with fatigue and weakness found to have pulmonary vascular congestion and possible pneumonia. The patient's breathing has improved but she continues to work with physical therapy to improve her functional status prior to going home. PROBLEMS: 1. History of Septic shock s/p pressors: WBC stable at 6.9 today -s/p 8 days Meropenem, 4 days Vancomycin -BP WNL and VSS 2. CHF: -Fluid status much improved -Nephrology signed off. Appreciate recommendations -Lasix as needed for diuresis 3. Acute on chronic kidney disease and ARF: Cr 0.98 today -Nephrology on board 4. COPD: Patient is on room air with no additional oxygen requirement at this time -Continue Advair, DuoNebs -Continue prednisone daily 5. Anemia: normocytic, 2/2 chronic disease -stable. Hgb 10.2 today 6. Hyponatremia: -Sodium 137 today. Stable -Will continue to monitor 7. Hyperkalemia: -Appears to have resolved. K 4.1 today -All other electrolytes WNL. Will continue to monitor 8. Gout: -Continue Febuxostat 9. HLD: -Continue Atorvastatin 10. Hypothyroidism: -Continue levothyroxine 11. Mood disorder: -restarted home Paxil DISPOSITION: pending PT clearance VS, I&O, 24H, Fishbone Vital Signs/I&O Vital Signs Date Time Temp Pulse Resp B/P (MAP) Pulse Ox O2 Delivery O2 Flow Rate FiO2 01/01/19 14:00 98.0 98 20 142/72 (95) 97 12/30/18 16:00 1.0 12/26/18 05:45 35 I&O- Last 24 Hours up to 6 AM 01/01/19 06:00 Intake Total 390 ml Output Total 995 ml Balance -605 ml Laboratory Data 24H LABS Laboratory Tests 2 12/31/18 20:31: Bedside Glucose (Misc Panel) 108 01/01/19 05:27: Nucleated Red Blood Cells % (auto) 0.0, Anion Gap 9, Glomerular Filtration Rate 58.0, Blood Urea Nitrogen 21H, Creatinine 0.98, Sodium Level 137, Potassium Level 4.1, Chloride Level 103, Carbon Dioxide Level 25, Calcium Level 7.7L 01/01/19 11:25: Bedside Glucose (Misc Panel) 133H CBC/BMP Laboratory Tests 01/01/19 05:27 Red Blood Count 3.63 L, Mean Corpuscular Volume 86.5, Mean Corpuscular Hemoglo bin 28.1, Mean Corpuscular Hemoglobin Concent 32.5, Red Cell Distribution Width 15.1 H, Calcium Level 7.7 L Microbiology Microbiology 12/23/18 Blood Culture - Final, Complete NO GROWTH AFTER 5 DAYS 12/23/18 Blood Culture - Final, Complete NO GROWTH AFTER 5 DAYS 12/29/18 Respiratory Virus Panel (PCR) (RANGEL) - Final, Complete 12/29/18 Gram Stain - Final, Complete 12/29/18 Sputum Culture - Final, Complete Yeast Like Organism 12/29/18 MRSA Screen - Final, Complete 12/23/18 Urine Culture - Final, Complete GME ATTESTATION GME ATTESTATION My faculty preceptor for this patient encounter was physically present during the encounter and was fully available. All aspects of the patient interview, examination, medical decision making process, and medical care plan development were reviewed and approved by the faculty preceptor. The faculty preceptor is aware and concurs with the plan as stated in the body of this note and will attest to such by his/her cosignature. VALERIE YEE MD Jan 01, 2019 16:15
[2019-01-01] MEDS ORDERED: hydrOXYzine 25 MG TAB PO PRN (16:30)
[2019-01-01 22:00] VITALS: BP 141/70
[2019-01-02] MEDS: IPRATROPIUM 0.5MG/ALBUTEROL 2.5MG INH SOL UD 3ML (DUONEB)(J7620) NEB SCH ×6 (04:00→20:00)
[2019-01-02] MEDS: SODIUM CHLORIDE 0.9% INJ 10 ML SYR IV SCH ×3 (05:59→20:36)
[2019-01-02] MEDS: LEVOTHYROXINE 100MCG TABLET (0.1MG) PO SCH (05:59)
[2019-01-02] MEDS: NORCO, ANEXSIA 5/325MG TABLET (HYDROcodone/ACETAMINOPHEN) PO PRN ×2 (05:59→13:44)
[2019-01-02 06:00] VITALS: BP 150/77
[2019-01-02 06:37] LABS: HEMATOCRIT 32.9 % (36.0-47.0); HEMOGLOBIN 10.7 g/dl (12.0-15.5); MEAN CORPUSCULAR HEMOGLOBIN 28.2 pg (27.0-33.0); MEAN CORPUSCULAR HGB CONC 32.5 g/dl (32.0-36.5); MEAN CORPUSCULAR VOLUME 86.8 fl (80.0-96.0); PLATELET COUNT, AUTOMATED 243 10^3/uL (150-450); RED BLOOD COUNT 3.79 10^6/uL (4.00-5.40); WHITE BLOOD COUNT 6.7 10^3/uL (4.0-10.0)
[2019-01-02 07:05] LABS: BLOOD UREA NITROGEN 19 MG/DL (7-18); CALCIUM LEVEL 8.3 MG/DL (8.8-10.2); CARBON DIOXIDE LEVEL 23 MEQ/L (21-32); CHLORIDE LEVEL 104 MEQ/L (98-107); CREATININE FOR GFR 0.91 MG/DL (0.55-1.30); GLOMERULAR FILTRATION RATE > 60.0 (>32); GLUCOSE, FASTING 138 MG/DL (70-100); POTASSIUM SERUM 4.1 MEQ/L (3.5-5.1); SODIUM LEVEL 136 MEQ/L (136-145)
[2019-01-02] MEDS: PARoxetine 10MG TABLET PO SCH (07:43)
[2019-01-02] MEDS: PANTOPRAZOLE 20 MG TAB PO SCH ×2 (07:43→20:35)
[2019-01-02] MEDS: ASPIRIN 81 MG ENTERIC TAB PO SCH (07:43)
[2019-01-02] MEDS: ATORVASTATIN 20 MG TAB PO SCH (07:43)
[2019-01-02] MEDS: FEBUXOSTAT 40 MG TABLET (ULORIC) PO SCH (07:43)
[2019-01-02] MEDS: DOCUSATE SODIUM 100 MG CAP PO SCH ×2 (07:43→20:35)
[2019-01-02] MEDS: HumaLOG INSULIN (NovoLOG) PER UNIT SC SCH ×4 (07:44→20:36)
[2019-01-02] MEDS: HEPARIN SOD (PORCINE) 5000 UNITS/ML VIAL SC SCH ×2 (07:44→20:35)
[2019-01-02] MEDS: METOPROLOL SUCC *XL* 12.5MG PER 1/2 TAB (TopROL *XL*) PO SCH (07:45)
[2019-01-02] MEDS: TIOTROPIUM INHALER/CAPSULE (SPIRIVA) INH SCH (08:27)
[2019-01-02] MEDS: ADVAIR HFA 230/21MCG INHALER INH SCH (08:28)
--- NOTE | 2019-01-02 10:36 | IPNPDOC ---
Date Seen The patient was seen on 01/02/19. Progress Note SUBJECTIVE: Patient is eager to go home. It was explained to her that she needs to pass PT exercises first. She was coughing up clear mucus this morning so a DuoNeb treatment was initiated. Otherwise, no changes overnight and no further complaints this morning OBJECTIVE PHYSICAL EXAMINATION: VITAL SIGNS: Please see below. GENERAL: Sitting up in the bedside chair, no acute distress, calm and cooperative HEENT: Moist mucous membranes, extraocular movements intact, no thyromegaly CARDIOVASCULAR: Somewhat tachycardic but sinus rhythm, no murmurs, rubs or gallops RESPIRATORY: Diminished breath sounds diffusely with some crackles appreciated in lower and middle lobes bilaterally. ABDOMINAL: Nontender to palpation with + bowel sounds, no masses/organomegaly EXTREMITIES: trace edema in lower extremities bilaterally NEUROLOGICAL: no focal deficits appreciated PSYCHOLOGICAL: somewhat anxious mood, normal affect LABORATORY DATA, IMAGING STUDIES, MICROBIOLOGY: Please see below. Echocardiogram: none on file DVT prophylaxis ordered?: [facility] ASSESSMENT AND PLAN: This is a 83 YO F with history of COPD, DM2, CKD and atrophic kidney s/p nephrostomy tube who presented with fatigue and weakness found to have pulmonary vascular congestion and possible pneumonia. The patient's breathing has improved but she continues to work with physical therapy to improve her functional status prior to going home. PROBLEMS: 1. History of Septic shock s/p pressors: WBC stable at 6.9 today -s/p 8 days Meropenem, 4 days Vancomycin -BP WNL and VSS 2. CHF: -Fluid status much improved -Nephrology signed off. Appreciate recommendations -Lasix as needed for diuresis 3. Acute on chronic kidney disease and ARF: Cr 0.98 today -Nephrology on board 4. COPD: Patient is on room air with no additional oxygen requirement at this time -Continue Advair, DuoNebs -Continue prednisone daily 5. Anemia: normocytic, 2/2 chronic disease -stable. Hgb 10.7 today 6. Hyponatremia: -Sodium 136 today. Stable -Will continue to monitor 7. Hyperkalemia: -Appears to have resolved. K 4.1 today -All other electrolytes WNL. Will continue to monitor 8. Gout: -Continue Febuxostat 9. HLD: -Continue Atorvastatin 10. Hypothyroidism: -Continue levothyroxine 11. Mood disorder: -restarted home Paxil DISPOSITION: pending PT clearance VS, I&O, 24H, Fishbone Vital Signs/I&O Vital Signs Date Time Temp Pulse Resp B/P (MAP) Pulse Ox O2 Delivery O2 Flow Rate FiO2 01/02/19 07:45 84 142/76 01/02/19 06:29 18 01/02/19 06:00 98.1 95 12/30/18 16:00 1.0 I&O- Last 24 Hours up to 6 AM 01/02/19 06:00 Intake Total 1264 ml Output Total 920 ml Balance 344 ml Laboratory Data 24H LABS Laboratory Tests 2 01/01/19 11:25: Bedside Glucose (Misc Panel) 133H 01/01/19 16:42: Bedside Glucose (Misc Panel) 129H 01/01/19 20:46: Bedside Glucose (Misc Panel) 108 01/02/19 05:58: Nucleated Red Blood Cells % (auto) 0.0, Anion Gap 9, Glomerular Filtration Rate > 60.0, Blood Urea Nitrogen 19H, Creatinine 0.91, Sodium Level 136, Potassium Level 4.1, Chloride Level 104, Carbon Dioxide Level 23, Calcium Level 8.3L CBC/BMP Laboratory Tests 01/02/19 05:58 Red Blood Count 3.79 L, Mean Corpuscular Volume 86.8, Mean Corpuscular Hemoglobin 28.2, Mean Corpuscular Hemoglobin Concent 32.5, Red Cell Distribution Width 15.1 H, Calcium Level 8.3 L Microbiology Microbiology 12/23/18 Blood Culture - Final, Complete NO GROWTH AFTER 5 DAYS 12/23/18 Blood Culture - Final, Complete NO GROWTH AFTER 5 DAYS 12/29/18 Respiratory Virus Panel (PCR) ([facility]ANGEL) - Final, Complete 12/29/18 Gram Stain - Final, Complete 12/29/18 Sputum Culture - Final, Complete Yeast Like Organism 12/29/18 MRSA Screen - Final, Complete 12/23/18 Urine Culture - Final, Complete GME ATTESTATION GME ATTESTATION My faculty preceptor for this patient encounter was physically present during the encounter and was fully available. All aspects of the patient interview, examination, medical decision making process, and medical care plan development were reviewed and approved by the faculty preceptor. The faculty preceptor is aware and concurs with the plan as stated in the body of this note and will attest to such by his/her cosignature. VALERIE YEE MD Jan 02, 2019 10:36
[2019-01-02 14:00] VITALS: BP 160/73
[2019-01-02 22:00] VITALS: BP 163/79
[2019-01-03] MEDS: ADVAIR HFA 230/21MCG INHALER INH SCH ×3 (00:14→20:35)
[2019-01-03] MEDS: IPRATROPIUM 0.5MG/ALBUTEROL 2.5MG INH SOL UD 3ML (DUONEB)(J7620) NEB SCH ×6 (00:34→20:00)
[2019-01-03] MEDS: NORCO, ANEXSIA 5/325MG TABLET (HYDROcodone/ACETAMINOPHEN) PO PRN ×2 (02:12→22:16)
[2019-01-03 06:00] VITALS: BP 160/77
[2019-01-03] MEDS: SODIUM CHLORIDE 0.9% INJ 10 ML SYR IV SCH ×3 (06:00→22:00)
[2019-01-03] MEDS: LEVOTHYROXINE 100MCG TABLET (0.1MG) PO SCH (06:45)
[2019-01-03 07:05] LABS: HEMATOCRIT 32.4 % (36.0-47.0); HEMOGLOBIN 10.3 g/dl (12.0-15.5); MEAN CORPUSCULAR HEMOGLOBIN 27.9 pg (27.0-33.0); MEAN CORPUSCULAR HGB CONC 31.8 g/dl (32.0-36.5); MEAN CORPUSCULAR VOLUME 87.8 fl (80.0-96.0); PLATELET COUNT, AUTOMATED 224 10^3/uL (150-450); RED BLOOD COUNT 3.69 10^6/uL (4.00-5.40); WHITE BLOOD COUNT 6.7 10^3/uL (4.0-10.0)
[2019-01-03 07:24] LABS: BLOOD UREA NITROGEN 16 MG/DL (7-18); CALCIUM LEVEL 8.4 MG/DL (8.8-10.2); CARBON DIOXIDE LEVEL 23 MEQ/L (21-32); CHLORIDE LEVEL 103 MEQ/L (98-107); CREATININE FOR GFR 0.94 MG/DL (0.55-1.30); GLOMERULAR FILTRATION RATE > 60.0 (>32); GLUCOSE, FASTING 149 MG/DL (70-100); SODIUM LEVEL 136 MEQ/L (136-145)
[2019-01-03] MEDS: TIOTROPIUM INHALER/CAPSULE (SPIRIVA) INH SCH (07:45)
[2019-01-03] MEDS: ASPIRIN 81 MG ENTERIC TAB PO SCH (08:22)
[2019-01-03] MEDS: FEBUXOSTAT 40 MG TABLET (ULORIC) PO SCH (08:22)
[2019-01-03] MEDS: METOPROLOL SUCC *XL* 12.5MG PER 1/2 TAB (TopROL *XL*) PO SCH (08:22)
[2019-01-03] MEDS: ATORVASTATIN 20 MG TAB PO SCH (08:22)
[2019-01-03] MEDS: PARoxetine 10MG TABLET PO SCH (08:22)
[2019-01-03] MEDS: DOCUSATE SODIUM 100 MG CAP PO SCH ×2 (08:22→22:15)
[2019-01-03] MEDS: PANTOPRAZOLE 20 MG TAB PO SCH ×2 (08:22→22:15)
[2019-01-03] MEDS: HEPARIN SOD (PORCINE) 5000 UNITS/ML VIAL SC SCH ×2 (08:23→22:16)
[2019-01-03] MEDS: HumaLOG INSULIN (NovoLOG) PER UNIT SC SCH ×4 (08:23→21:00)
--- NOTE | 2019-01-03 10:07 | IPNPDOC ---
Text Note Date of Service The patient was seen on 01/03/19. NOTE SUBJECTIVE: Patient seen and examined at bedside. No acute overnight events r eported. Patient has no new medical complaints today. Understands that she requires more physical therapy for safe discharge. She is requesting more frequent physical therapy. OBJECTIVE PHYSICAL EXAMINATION: VITAL SIGNS: Please see below. GENERAL: Sitting up in the bedside chair, no acute distress, in good spirits today HEENT: Moist mucous membranes, extraocular movements intact, NC/AT CARDIOVASCULAR: +S1S2 RESPIRATORY: diminished breath sounds b/l ABDOMINAL: Nontender to palpation with + bowel sounds, no masses/organomegaly EXTREMITIES: trace edema in lower extremities bilaterally NEUROLOGICAL: no focal deficits appreciated LABORATORY DATA, IMAGING STUDIES, MICROBIOLOGY: Please see below. DVT prophylaxis ordered?: [facility] ASSESSMENT AND PLAN: This is a 83 YO F with history of COPD, DM2, CKD and atrophic kidney s/p nephrostomy tube who presented with fatigue and weakness found to have pulmonary vascular congestion and possible pneumonia. The patient's breathing has improved but she continues to work with physical therapy to improve her functional status prior to going home. PROBLEMS: 1. History of Septic shock s/p pressors - off abx - completed 8 days Meropenem, 4 days Vancomycin 2. CHF: - compensated - Nephrology signed off. Appreciate recommendations -Lasix as needed for diuresis 3. BRIGID/CKD - at baseline 4. COPD - stable -Continue Advair DuoNebs -Continue prednisone daily 5. Anemia: normocytic, 2/2 chronic disease -stable 6. Hyponatremia: -Stable -Will continue to monitor 7. Hyperkalemia: -resolved -All other electrolytes WNL. Will continue to monitor 8. Gout: -Continue Febuxostat 9. HLD: -Continue Atorvastatin 10. Hypothyroidism: -Continue levothyroxine 11. Mood disorder: -restarted home Paxil DISPOSITION: pending PT clearance VS,Ketan, I+O VS, [place]ale[place], I+O Laboratory Tests 01/03/19 06:46 Red Blood Count 3.69 L, Mean Corpuscular Volume 87.8, Mean Corpuscular Hemoglobin 27.9, Mean Corpuscular Hemoglobin Concent 31.8 L, Red Cell Distribution Width 15.3 H, Calcium Level 8.4 L Vital Signs Date Time Temp Pulse Resp B/P (MAP) Pulse Ox O2 Delivery O2 Flow Rate FiO2 01/03/19 08:22 103 160/77 01/03/19 06:00 98.2 16 98 12/30/18 16:00 1.0 I&O- Last 24 Hours up to 6 AM 01/03/19 06:00 Intake Total 1380 ml Output Total 1150 ml Balance 230 ml SUMMER DUNCAN MD Jan 03, 2019 10:07
[2019-01-03] MEDS: IPRATROPIUM 0.5MG/ALBUTEROL 2.5MG INH SOL UD 3ML (DUONEB)(J7620) NEB PRN (22:16)
[2019-01-04] MEDS: IPRATROPIUM 0.5MG/ALBUTEROL 2.5MG INH SOL UD 3ML (DUONEB)(J7620) NEB SCH ×7 (00:48→23:53)
[2019-01-04] MEDS: LEVOTHYROXINE 100MCG TABLET (0.1MG) PO SCH (05:43)
[2019-01-04] MEDS: SODIUM CHLORIDE 0.9% INJ 10 ML SYR IV SCH (05:43)
[2019-01-04 06:00] VITALS: BP 142/79
[2019-01-04 06:06] LABS: HEMATOCRIT 31.3 % (36.0-47.0); HEMOGLOBIN 10.1 g/dl (12.0-15.5); MEAN CORPUSCULAR HEMOGLOBIN 28.6 pg (27.0-33.0); MEAN CORPUSCULAR HGB CONC 32.3 g/dl (32.0-36.5); MEAN CORPUSCULAR VOLUME 88.7 fl (80.0-96.0); PLATELET COUNT, AUTOMATED 226 10^3/uL (150-450); RED BLOOD COUNT 3.53 10^6/uL (4.00-5.40)
[2019-01-04 06:25] LABS: BLOOD UREA NITROGEN 14 MG/DL (7-18); CALCIUM LEVEL 8.3 MG/DL (8.8-10.2); CARBON DIOXIDE LEVEL 23 MEQ/L (21-32); CHLORIDE LEVEL 105 MEQ/L (98-107); CREATININE FOR GFR 0.91 MG/DL (0.55-1.30); GLOMERULAR FILTRATION RATE > 60.0 (>32); GLUCOSE, FASTING 148 MG/DL (70-100); POTASSIUM SERUM 4.1 MEQ/L (3.5-5.1); SODIUM LEVEL 134 MEQ/L (136-145)
[2019-01-04] MEDS: ADVAIR HFA 230/21MCG INHALER INH SCH ×2 (07:52→20:17)
[2019-01-04] MEDS: TIOTROPIUM INHALER/CAPSULE (SPIRIVA) INH SCH (07:52)
[2019-01-04] MEDS: ATORVASTATIN 20 MG TAB PO SCH (08:27)
[2019-01-04] MEDS: METOPROLOL SUCC *XL* 12.5MG PER 1/2 TAB (TopROL *XL*) PO SCH (08:27)
[2019-01-04] MEDS: PANTOPRAZOLE 20 MG TAB PO SCH ×2 (08:27→20:52)
[2019-01-04] MEDS: ASPIRIN 81 MG ENTERIC TAB PO SCH (08:27)
[2019-01-04] MEDS: FEBUXOSTAT 40 MG TABLET (ULORIC) PO SCH (08:27)
[2019-01-04] MEDS: DOCUSATE SODIUM 100 MG CAP PO SCH ×2 (08:27→20:52)
[2019-01-04] MEDS: PARoxetine 10MG TABLET PO SCH (08:27)
[2019-01-04] MEDS: HEPARIN SOD (PORCINE) 5000 UNITS/ML VIAL SC SCH ×2 (08:29→20:52)
[2019-01-04] MEDS: HumaLOG INSULIN (NovoLOG) PER UNIT SC SCH ×4 (08:29→20:48)
--- NOTE | 2019-01-04 12:30 | IPNPDOC ---
Date Seen The patient was seen on 01/04/19. Progress Note SUBJECTIVE: Patient is still very eager to go home. No other complaints. 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 OBJECTIVE PHYSICAL EXAMINATION: VITAL SIGNS: Please see below. GENERAL: Sitting up in the bedside chair, no acute distress, calm and cooperative HEENT: Moist mucous membranes, extraocular movements intact, no thyromegaly CARDIOVASCULAR: Somewhat tachycardic but sinus rhythm, no murmurs, rubs or gallops RESPIRATORY: Diminished breath sounds diffusely with some crackles appreciated in lower and middle lobes bilaterally. ABDOMINAL: Nontender to palpation with + bowel sounds, no masses/organomegaly EXTREMITIES: no clubbing/cyanosis/edema NEUROLOGICAL: no focal deficits appreciated PSYCHOLOGICAL: somewhat anxious mood, normal affect LABORATORY DATA, IMAGING STUDIES, MICROBIOLOGY: Please see below. Echocardiogram: none on file DVT prophylaxis ordered?: [facility] ASSESSMENT AND PLAN: This is a 83 YO F with history of COPD, DM2, CKD and atrophic kidney s/p nephrostomy tube who presented with fatigue and weakness found to have pulmonary vascular congestion and possible pneumonia. The patient's breathing has improved but she continues to work with physical therapy to improve her functional status prior to going home. PROBLEMS: 1. History of Septic shock s/p pressors: -s/p 8 days Meropenem, 4 days Vancomycin -BP WNL and VSS 2. CHF: -Appears euvolemic -Nephrology signed off. Appreciate recommendations -Lasix as needed for diuresis 3. Acute on chronic kidney disease and ARF: Stable -Nephrology on board 4. COPD: Patient is on room air with no additional oxygen requirement at this time -Continue Advair, DuoNebs -Continue prednisone daily 5. Anemia: normocytic, 2/2 chronic disease -stable 6. Hyponatremia: -Appears to have resolved -Will continue to monitor 7. Hyperkalemia: -Appears to have resolved -All other electrolytes WNL. Will continue to monitor 8. Gout: -Continue Febuxostat 9. HLD: -Continue Atorvastatin 10. Hypothyroidism: -Continue levothyroxine 11. Mood disorder: -restarted home Paxil DISPOSITION: pending PT clearance VS, I&O, 24H, Fishbone Vital Signs/I&O Vital Signs Date Time Temp Pulse Resp B/P (MAP) Pulse Ox O2 Delivery O2 Flow Rate FiO2 4/22/19 08:27 102 142/79 01/04/19 06:00 99.2 18 99 12/30/18 16:00 1.0 I&O- Last 24 Hours up to 6 AM 01/04/19 06:00 Intake Total 1035 ml Output Total 1075 ml Balance -40 ml Laboratory Data 24H LABS Laboratory Tests 2 01/03/19 16:50: Bedside Glucose (Misc Panel) 161H 01/03/19 20:53: Bedside Glucose (Misc Panel) 87 01/04/19 05:46: Nucleated Red Blood Cells % (auto) 0.0, Anion Gap 6L, Glomerular Filtration Rate > 60.0, Blood Urea Nitrogen 14, Creatinine 0.91, Sodium Level 134L, Potassium Level 4.1, Chloride Level 105, Carbon Dioxide Level 23, Calcium Level 8.3L 01/04/19 11:29: Bedside Glucose (Misc Panel) 108 CBC/BMP Laboratory Tests 01/04/19 05:46 Red Blood Count 3.53 L, Mean Corpuscular Volume 88.7, Mean Corpuscular Hemoglobin 28.6, Mean Corpuscular Hemoglobin Concent 32.3, Red Cell Distribution Width 15.6 H, Calcium Level 8.3 L Microbiology Microbiology 12/29/18 Respiratory Virus Panel (PCR) (RANGEL) - Final, Complete 12/29/18 Gram Stain - Final, Complete 12/29/18 Sputum Culture - Final, Complete Yeast Like Organism 12/29/18 MRSA Screen - Final, Complete GME ATTESTATION GME ATTESTATION My faculty preceptor for this patient encounter was physically present during the encounter and was fully available. All aspects of the patient interview, examination, medical decision making process, and medical care plan development were reviewed and approved by the faculty preceptor. The faculty preceptor is aware and concurs with the plan as stated in the body of this note and will attest to such by his/her cosignature. VALERIE YEE MD Jan 04, 2019 12:30
[2019-01-04 14:00] VITALS: BP 141/63
[2019-01-04] MEDS: MOM 30ML SUSPENSION UDC PO PRN (18:45)
[2019-01-04 22:00] VITALS: BP 144/73
[2019-01-04] MEDS: NORCO, ANEXSIA 5/325MG TABLET (HYDROcodone/ACETAMINOPHEN) PO PRN (22:03)
[2019-01-05] MEDS: IPRATROPIUM 0.5MG/ALBUTEROL 2.5MG INH SOL UD 3ML (DUONEB)(J7620) NEB SCH ×5 (04:14→20:00)
[2019-01-05] MEDS: LEVOTHYROXINE 100MCG TABLET (0.1MG) PO SCH (05:47)
[2019-01-05 06:00] VITALS: BP 149/69
[2019-01-05 08:12] VITALS: BP 159/71
[2019-01-05] MEDS: HumaLOG INSULIN (NovoLOG) PER UNIT SC SCH ×4 (08:13→21:00)
[2019-01-05] MEDS: NORCO, ANEXSIA 5/325MG TABLET (HYDROcodone/ACETAMINOPHEN) PO PRN ×3 (08:13→20:14)
[2019-01-05] MEDS: ATORVASTATIN 20 MG TAB PO SCH (08:36)
[2019-01-05] MEDS: METOPROLOL SUCC *XL* 12.5MG PER 1/2 TAB (TopROL *XL*) PO SCH (08:37)
[2019-01-05] MEDS: PANTOPRAZOLE 20 MG TAB PO SCH ×2 (08:38→20:14)
[2019-01-05] MEDS: ASPIRIN 81 MG ENTERIC TAB PO SCH (08:38)
[2019-01-05] MEDS: FEBUXOSTAT 40 MG TABLET (ULORIC) PO SCH (08:38)
[2019-01-05] MEDS: PARoxetine 10MG TABLET PO SCH (08:38)
[2019-01-05] MEDS: DOCUSATE SODIUM 100 MG CAP PO SCH ×2 (08:39→20:15)
[2019-01-05] MEDS: HEPARIN SOD (PORCINE) 5000 UNITS/ML VIAL SC SCH ×2 (08:40→20:15)
[2019-01-05] MEDS: ADVAIR HFA 230/21MCG INHALER INH SCH ×2 (08:59→20:20)
[2019-01-05] MEDS: TIOTROPIUM INHALER/CAPSULE (SPIRIVA) INH SCH (08:59)
[2019-01-05] MEDS ORDERED: MIRALAX *UNIT DOSE* 17GM PACKET PO PRN (09:15)
[2019-01-05] MEDS: FUROSEMIDE 40 MG TAB PO SCH (11:15)
[2019-01-05] MEDS: guaiFENesin ER 600 MG TAB PO SCH ×2 (11:16→20:15)
--- NOTE | 2019-01-05 13:06 | IPNPDOC ---
Date Seen The patient was seen on 01/05/19. Progress Note SUBJECTIVE: Patient is still very eager to go home. No other complaints. Pending PT clearance today. OBJECTIVE PHYSICAL EXAMINATION: VITAL SIGNS: Please see below. GENERAL: Sitting up in the bedside chair, no acute distress, calm and cooperative HEENT: Moist mucous membranes, extraocular movements intact, no thyromegaly CARDIOVASCULAR: Somewhat tachycardic but sinus rhythm, no murmurs, rubs or gallops RESPIRATORY: Diminished breath sounds diffusely with some crackles appreciated in lower and middle lobes bilaterally. ABDOMINAL: Nontender to palpation with + bowel sounds, no masses/organomegaly EXTREMITIES: no clubbing/cyanosis/edema NEUROLOGICAL: no focal deficits appreciated PSYCHOLOGICAL: somewhat anxious mood, normal affect LABORATORY DATA, IMAGING STUDIES, MICROBIOLOGY: Please see below. Echocardiogram: none on file DVT prophylaxis ordered?: [facility] ASSESSMENT AND PLAN: This is a 83 YO F with history of COPD, DM2, CKD and atrophic kidney s/p nephrostomy tube who presented with fatigue and weakness found to have pulmonary vascular congestion and possible pneumonia. The patient's breathing has improved but she continues to work with physical therapy to improve her functional status prior to going home. PROBLEMS: 1. History of Septic shock s/p pressors: -s/p 8 days Meropenem, 4 days Vancomycin -BP WNL and VSS 2. CHF: -Appears euvolemic -Nephrology signed off. Appreciate recommendations -Lasix as needed for diuresis 3. Acute on chronic kidney disease and ARF: Stable -Nephrology on board 4. COPD: Patient is on room air with no additional oxygen requirement at this time -Continue Advair, DuoNebs -Continue prednisone daily 5. Anemia: normocytic, 2/2 chronic disease -stable 6. Hyponatremia: -Appears to have resolved -Will continue to monitor 7. Hyperkalemia: -Appears to have resolved -All other electrolytes WNL. Will continue to monitor 8. Gout: -Continue Febuxostat 9. HLD: -Continue Atorvastatin 10. Hypothyroidism: -Continue levothyroxine 11. Mood disorder: -restarted home Paxil DISPOSITION: pending PT clearance VS, I&O, 24H, Fishbone Vital Signs/I&O Vital Signs Date Time Temp Pulse Resp B/P (MAP) Pulse Ox O2 Delivery O2 Flow Rate FiO2 4/23/19 09:00 20 01/05/19 08:37 98 159/71 01/05/19 06:00 98.0 95 12/30/18 16:00 1.0 I&O- Last 24 Hours up to 6 AM 01/05/19 06:00 Intake Total 1010 ml Output Total 2525 ml Balance -1515 ml Laboratory Data 24H LABS Laboratory Tests 2 01/04/19 16:51: Bedside Glucose (Misc Panel) 143H 01/04/19 20:17: Bedside Glucose (Misc Panel) 138H 01/05/19 06:22: Bedside Glucose (Misc Panel) 153H 01/05/19 11:08: Bedside Glucose (Misc Panel) 91 Microbiology Microbiology 12/29/18 Respiratory Virus Panel (PCR) ([facility]ANGEL) - Final, Complete 12/29/18 Gram Stain - Final, Complete 12/29/18 Sputum Culture - Final, Complete Yeast Like Organism 12/29/18 MRSA Screen - Final, Complete GME ATTESTATION GME ATTESTATION My faculty preceptor for this patient encounter was physically present during the encounter and was fully available. All aspects of the patient interview, examination, medical decision making process, and medical care plan development were reviewed and approved by the faculty preceptor. The faculty preceptor is aware and concurs with the plan as stated in the body of this note and will attest to such by his/her cosignature. ATTENDING NOTE I, Veronika Mann, have both independently examined this patient as well as reviewed the documentation. I have discussed in detail with the resident the findings and plan of treatment as documented in the residents documentation. I will continue to follow the patient and offer further guidance to the patients care as necessary during this hospital stay. VALERIE YEE MD Jan 05, 2019 11:48 VERONIKA MANN MD Jan 05, 2019 18:15
[2019-01-05 14:00] VITALS: BP 168/82
[2019-01-05 15:41] VITALS: BP 148/74
[2019-01-05 22:00] VITALS: BP 144/76
[2019-01-06] MEDS: IPRATROPIUM 0.5MG/ALBUTEROL 2.5MG INH SOL UD 3ML (DUONEB)(J7620) NEB SCH ×4 (00:06→12:00)
[2019-01-06] MEDS: NORCO, ANEXSIA 5/325MG TABLET (HYDROcodone/ACETAMINOPHEN) PO PRN (00:42)
[2019-01-06] MEDS: LEVOTHYROXINE 100MCG TABLET (0.1MG) PO SCH (05:36)
[2019-01-06 06:00] VITALS: BP 172/79
[2019-01-06] MEDS: MOM 30ML SUSPENSION UDC PO PRN (06:53)
[2019-01-06] MEDS: FUROSEMIDE 40 MG TAB PO SCH (07:46)
[2019-01-06] MEDS: FEBUXOSTAT 40 MG TABLET (ULORIC) PO SCH (07:46)
[2019-01-06] MEDS: ASPIRIN 81 MG ENTERIC TAB PO SCH (07:46)
[2019-01-06] MEDS: HumaLOG INSULIN (NovoLOG) PER UNIT SC SCH ×2 (07:46→11:57)
[2019-01-06] MEDS: HEPARIN SOD (PORCINE) 5000 UNITS/ML VIAL SC SCH (07:46)
[2019-01-06] MEDS: guaiFENesin ER 600 MG TAB PO SCH (07:46)
[2019-01-06 07:47] VITALS: BP 170/78
[2019-01-06] MEDS: PANTOPRAZOLE 20 MG TAB PO SCH (07:47)
[2019-01-06] MEDS: PARoxetine 10MG TABLET PO SCH (07:47)
[2019-01-06] MEDS: DOCUSATE SODIUM 100 MG CAP PO SCH (07:47)
[2019-01-06] MEDS: METOPROLOL SUCC *XL* 12.5MG PER 1/2 TAB (TopROL *XL*) PO SCH (07:47)
[2019-01-06] MEDS: ATORVASTATIN 20 MG TAB PO SCH (07:47)
[2019-01-06] MEDS: TIOTROPIUM INHALER/CAPSULE (SPIRIVA) INH SCH (08:47)
[2019-01-06] MEDS: ADVAIR HFA 230/21MCG INHALER INH SCH (08:47)
[2019-01-06 09:20] LABS: HEMATOCRIT 32.3 % (36.0-47.0); HEMOGLOBIN 10.5 g/dl (12.0-15.5); MEAN CORPUSCULAR HEMOGLOBIN 28.6 pg (27.0-33.0); MEAN CORPUSCULAR HGB CONC 32.5 g/dl (32.0-36.5); PLATELET COUNT, AUTOMATED 262 10^3/uL (150-450); RED BLOOD COUNT 3.67 10^6/uL (4.00-5.40); WHITE BLOOD COUNT 5.7 10^3/uL (4.0-10.0)
[2019-01-06 09:45] LABS: CALCIUM LEVEL 8.6 MG/DL (8.8-10.2); CREATININE FOR GFR 0.98 MG/DL (0.55-1.30); MAGNESIUM LEVEL 1.8 MG/DL (1.8-2.4); POTASSIUM SERUM 4.1 MEQ/L (3.5-5.1)
[2019-01-06] MEDS ORDERED: METO1TAB32 PO (10:27)
[2019-01-06] MEDS ORDERED: FEBU40TA PO (10:29)
--- NOTE | 2019-01-07 13:27 | DS.PDOC ---
Discharge Summary General Date of Admission Dec 23, 2018 at 11:25 Date of Discharge January 06, 2019 Attending Physician: VERONIKA SHAH MD Specialist/Consultants Involve: GEGE STEVENS MD Specialist/Consultants Involve [employer] Operator: Anu Koehler Speech Therapy: Chandrika Belle Discharge Summary PROCEDURES PERFORMED DURING STAY: [None]. ADMITTING DIAGNOSES: 1. COPD 2. Pulmonary Hypertension 3. DM 4. HTN 5. Hypothyroidism 6. History of C. dif 7. 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 Acute on chronic kidney disease COMPLICATIONS/CHIEF COMPLAINT: Sepsis, Marco A, Renal Failure. HISTORY OF PRESENT ILLNESS: "This is 83 years old white female transferred from [facility] emergency room.. Patient has a past medical history of COPD with pulmonary hypertension, diabetes mellitus, hypertension, hypothyroidism, history of C daily with atrophic left kidney. All of's, so patient had anorexia many episodes. Acute renal failure with a creatinine approximately 0.8, but slowly has been increasing to 3.0. In September 2018. She needed intermittent dialysis and eventually nephrostomy tube was placed in Patient also was admitted to ICU after being intubated, found concurrent pne umonia. She has been on a creatinine baseline of 0.7, till day of admission when she presented to [facility] with chief complaints of feeling weak and poor for the last few days. Patient has a nephrostomy tube and also does intermittent self cath for urinary output but has been slowly decreasing. Patient was transferred to [facility] with possible sepsis, possible nep hrostomy tube dysfunction, etc." HOSPITAL COURSE: The patient was found to be septic (leukocytosis, tachycardia, lactic acidosis, febrile, metabolic acidosis) and admitted to the ICU under the care of a hospitalist. She was placed on aggressive IV fluid resuscitation, empiric broad- spectrum antibiotics, and nephrology was consulted. A central line was placed by the director of nurses registry on admission and pressor therapy with Levophed was started to titrate to MAP above 65. The patient gradually improved and was weaned off pressor support. Her respiratory status fluctuated with fluid resuscitation and subsequent diuresis, and it was suspected the patient was aspirating when eating, so speech therapy was consulted for recommendations. The patient was transferred to the PCU once respiratory and renal status improved, where she was transfused 2u PRBC for her chronic anemia 2/2 her chronic kidney disease. The patient then worked with physical therapy, who deemed her safe to return home. DISCHARGE MEDICATIONS: Please see below. ALLERGIES: Please see below. PHYSICAL EXAMINATION ON DISCHARGE: VITAL SIGNS: Please see below. GENERAL: Sitting up in the bedside chair, no acute distress, calm and cooperative HEENT: Moist mucous membranes, extraocular movements intact, no thyromegaly CARDIOVASCULAR: Somewhat tachycardic but sinus rhythm, no murmurs, rubs or gallops RESPIRATORY: Diminished breath sounds diffusely with some crackles appreciated in lower and middle lobes bilaterally. ABDOMINAL: Nontender to palpation with + bowel sounds, no masses/organomegaly EXTREMITIES: no clubbing/cyanosis/edema NEUROLOGICAL: no focal deficits appreciated PSYCHOLOGICAL: somewhat anxious mood, normal affect LABORATORY DATA: Please see below. IMAGING: See chart PROGNOSIS: Fair ACTIVITY: [As tolerated]. DIET: Renal diet DISCHARGE PLAN: Follow up with PCP within 1 week Remain compliant with treatment plan and medications Return to the ER if you experience any problems DISPOSITION: Home, Self-Care. DISCHARGE CONDITION: [Stable]. TIME SPENT ON DISCHARGE: Greater than 35 minutes. Vital Signs/I&Os Vital Signs Date Time Temp Pulse Resp B/P (MAP) Pulse Ox O2 Delivery O2 Flow Rate FiO2 01/06/19 07:47 87 170/78 01/06/19 06:00 97.3 20 94 I&O- Last 24 Hours up to 6 AM 01/07/19 06:00 Intake Total 555 ml Output Total 720 ml Balance -165 ml Laboratory Data Labs 24H Laboratory Tests 2 01/07/19 11:30: Lab Scanned Report Transfusion Record Microbiology Microbiology 12/29/18 Respiratory Virus Panel (PCR) (RANGEL) - Final, Complete 12/29/18 Gram Stain - Final, Complete 12/29/18 Sputum Culture - Final, Complete Yeast Like Organism 12/29/18 MRSA Screen - Final, Complete Discharge Medications Scheduled Acetaminophen (Acetaminophen) 325 Mg Tablet, 325 MG PO ONCE, (Reported) Amlodipine Besylate (Amlodipine Besylate) 5 Mg Tablet, 5 MG PO DAILY, (Reported) Aspirin (Aspir 81) 81 Mg Tablet.dr, 81 MG PO DAILY, (Reported) Atorvastatin Calcium (Atorvastatin Calcium) 20 Mg Tablet, 20 MG PO DAILY, (Reported) Febuxostat (Uloric) 40 Mg Tablet, 40 MG PO DAILY Fluticasone/Vilanterol (Breo Ellipta 100-25 Mcg INH) 1 Each Blst.w.dev, 1 PUFF INH DAILY, (Reported) Furosemide (Furosemide) 40 Mg Tablet, 40 MG PO DAILY, (Reported) Glipizide (Glipizide ER) 10 Mg Tab.er.24, 10 MG PO DAILY, (Reported) Levothyroxine Sodium (Synthroid) 100 Mcg Tablet, 100 MCG PO DAILY, (Reported) Linagliptin (Tradjenta) 5 Mg Tablet, 5 MG PO DAILY, (Reported) Lisinopril (Lisinopril) 20 Mg Tablet, 20 MG PO DAILY, (Reported) Magnesium Oxide (Magnesium Oxide) 400 Mg Tablet, 400 MG PO BID, (Reported) Metformin HCl (Metformin HCl ER) 750 Mg Tab.er.24h, 750 MG PO QPM, (Reported) TAKE WITH EVENING MEAL Metoprolol Succinate (Metoprolol Succinate) 25 Mg Tab.er.24h, 12.5 MG PO DAILY Pantoprazole Sodium (Pantoprazole Sodium) 20 Mg Tablet.dr, 20 MG PO BID, (Reported) Paroxetine HCl (Paroxetine) 10 Mg Tablet, 10 MG PO DAILY, (Reported) Potassium Chloride (Potassium Chloride) 20 Meq Tablet.er, 40 MEQ PO DAILY, (Reported) Tiotropium [place] Monohydrate (Spiriva) 18 Mcg Cap.w.dev, 1 INHALATION INH DAILY, (Reported) Scheduled PRN Albuterol Sulfate (Proair Hfa) 8.5 Gm Hfa.aer.ad, 2 PUFF INH Q4-6 PRN for SHORTNESS OF BREATH, (Reported) Diphenhydramine HCl (Diphenhydramine HCl) 25 Mg Capsule, 25 MG PO Q4H PRN for ALLERGY SYMPTOMS, (Reported) Oxycodone HCl (Oxycodone HCl) 10 Mg Tablet, 10 MG PO Q6H PRN for PAIN, (Reported) Allergies Coded Allergies: Penicillins (Unverified Allergy, Unknown, 12/23/18) budesonide (Unverified Adverse Reaction, Intermediate, 12/23/18) NOTES AT PHARMACY STATE PATIENT HAD BAD SINUS REACTION AFTER USING formoterol (Unverified Adverse Reaction, Intermediate, 12/23/18) NOTES AT PHARMACY STATE PATIENT HAD BAD SINUS REACTION AFTER USING GME ATTESTATION GME ATTESTATION My faculty preceptor for this patient encounter was physically present during the encounter and was fully available. All aspects of the patient interview, examination, medical decision making process, and medical care plan development were reviewed and approved by the faculty preceptor. The faculty preceptor is aware and concurs with the plan as stated in the body of this note and will attest to such by his/her cosignature. ATTENDING NOTE I, Veronika Shah, have both independently examined this patient as well as reviewed the documentation. I have discussed in detail with the resident the findings and plan of treatment as documented in the residents documentation. I will continue to follow the patient and offer further guidance to the patients care as necessary during this hospital stay. VALERIE YEE MD Jan 07, 2019 13:27 VERONIKA SHAH MD Jan 07, 2019 15:58
== END 2019-01-06 14:29 | disposition home or self-care (01) | DRG 871 ==
LOC: M ICU 11:25 → M PCU 12-27 00:54 → M MSPAV 12-31 18:48
PROVIDERS: ADMIT Internal Medicine; ATTEND Internal Medicine
PROC: 02HV33Z Insertion of Infusion Device into Superior Vena Cava, Percutaneous Approach (ICD-10-PCS; principal; 2018-12-23)
PROC: 30233N1 Transfusion of Nonautologous Red Blood Cells into Peripheral Vein, Percutaneous Approach (ICD-10-PCS; 2018-12-30)
DX: A41.9 Sepsis, unspecified organism (principal); R65.21 Severe sepsis with septic shock; I13.0 Hypertensive heart and chronic kidney disease with heart failure and stage 1 through stage 4 chronic kidney disease, or unspecified chronic kidney disease; N17.9 Acute kidney failure, unspecified; E87.2 Acidosis; E87.1 Hypo-osmolality and hyponatremia; J44.0 Chronic obstructive pulmonary disease with (acute) lower respiratory infection; N13.30 Unspecified hydronephrosis; S32.691A Other specified fracture of right ischium, initial encounter for closed fracture; I50.9 Heart failure, unspecified; I27.20 Pulmonary hypertension, unspecified; E11.9 Type 2 diabetes mellitus without complications; E03.9 Hypothyroidism, unspecified; Z79.899 Other long term (current) drug therapy; Z88.0 Allergy status to penicillin; Z88.8 Allergy status to other drugs, medicaments and biological substances; Z79.82 Long term (current) use of aspirin; K21.9 Gastro-esophageal reflux disease without esophagitis; E78.5 Hyperlipidemia, unspecified; M81.0 Age-related osteoporosis without current pathological fracture; F03.90 Unspecified dementia, unspecified severity, without behavioral disturbance, psychotic disturbance, mood disturbance, and anxiety; E83.51 Hypocalcemia; I71.4 Abdominal aortic aneurysm, without rupture; W18.30XA Fall on same level, unspecified, initial encounter; Y92.009 Unspecified place in unspecified non-institutional (private) residence as the place of occurrence of the external cause; D63.1 Anemia in chronic kidney disease; E87.5 Hyperkalemia; M10.9 Gout, unspecified